=== PATIENT | female | born 1995 | race American Indian/Alaskan Native ===

== ENCOUNTER 2017-02-24 10:24 | Emergency (ER) | payer OTHER ==
[2017-02-24] MEDS ORDERED: TYLENOL PO ONE (11:06)
[2017-02-24] MEDS ORDERED: NACL 0.9% 1000 ML 1,000 ML IV ONE ×3 (11:08→14:50)
[2017-02-24] MEDS ORDERED: ROBITUSSIN PO ONE (12:07)
[2017-02-24 12:23] LABS: Basophils % (Auto) 0.2 % (0.0-1.8); Eosinophils # (Auto) 0.1 K/mm3 (0.0-0.4); Eosinophils % (Auto) 0.6 % (0.0-4.3); Hemoglobin 10.6 gm/dl (10.1-14.3); Lymphocytes # (Auto) 0.4 K/mm3 (1.2-5.4); Lymphocytes % (Auto) 4.1 % (13.4-35.0); Mean Corpuscular HGB Conc 32 % (30-34); Mean Corpuscular Hemoglobin 26 pg (28-32); Mean Corpuscular Volume 82 fl (79-97); Monocytes # (Auto) 0.8 K/mm3 (0.0-0.8); Monocytes % (Auto) 8.1 % (0.0-7.3); Platelet Count 298 K/mm3 (140-440); Red Cell Distribution Width 14.6 % (13.2-15.2)
[2017-02-24 12:49] LABS: Alanine Aminotransferase 21 units/L (7-56); Albumin 3.7 g/dL (3.9-5); BUN/Creatinine Ratio 16; Blood Urea Nitrogen 8 mg/dL (7-17); Calcium 8.3 mg/dL (8.4-10.2); Hemolysis Index 26
--- NOTE | 2017-02-24 15:35 | Emergency Department Report ---
HPI - General Chief Complaint: Upper Respiratory Infection Time Seen by Provider: 02/24/17 12:05 - HPI HPI: The patient is a EGA 10 weeks, who presents for evaluation of cough and ill feeling. The patient reports that nonproductive cough for the past one day , harsh in quality, severe, and associated with nausea, decreased appetite, generalized myalgias, and fever. The patient denies headache, neck stiffness, trauma to the chest, chest pain, syncope, hemoptysis, unilateral leg swelling, abdominal pain, vaginal bleeding, vaginal discharge, dysuria. ED Past Medical Hx - Past Medical History Previous Medical History?: Yes - Surgical History Past Surgical History?: Yes Additional Surgical History: - Social History Smoking Status: Never Smoker Substance Use Type: Alcohol, Non Opiate Pain - Medications Home Medications: Home Medications Medication Instructions Recorded Confirmed Last Taken Type Acetaminophen [Tylenol Extra 500 mg PO Q6HR #30 tablet 02/24/17 Unknown Rx Strength] Oseltamivir [Tamiflu] 75 mg PO BID #10 cap 02/24/17 Unknown Rx Pnv No.95/Ferrous Fum/Folic AC 1 each PO QDAY #31 tablet 02/24/17 Unknown Rx [ Vitamin Tablet] guaiFENesin [Guaifenesin] 200 mg PO Q8HR PRN #30 tablet 02/24/17 Unknown Rx ED Review of Systems ROS: Stated complaint: FLU LIKE SYMPTOMS Other details as noted in HPI Constitutional: denies: fever ENT: denies: throat or neck pain Respiratory: reports cough denies: shortness of breath Cardiovascular: denies: chest pain Endocrine: denies unexplained weight loss or gain Gastrointestinal: denies: abdominal pain, nausea Genitourinary: denies: dysuria Musculoskeletal: reports myalgias denies: leg swelling Skin: denies: rash Neurological: denies: headache Hematological/Lymphatic: denies: easy bleeding or easy bruising Psych: denies sadness or hopelessness Physical Exam - Physical Exam Vital Signs: Vital Signs 02/24/17 02/24/17 02/24/17 10:28 10:59 14:01 Temperature 99.2 F 99.3 F Pulse Rate 129 H 129 H 108 H Respiratory 16 18 16 Rate Blood Pressure 104/72 Blood Pressure 100/59 90/56 [Left] O2 Sat by Pulse 100 100 100 Oximetry Physical Exam: General: well-nourished, well-developed, no acute distress Head: Normocephalic, atraumatic Eyes: normal sclera ENT: Mucous membranes are pale and dry Neck: No neck stiffness, no cervical adenopathy Respiratory: Breath sounds equal bilaterally, no wheezing, rales, or rhonchi Cardio: S1 and S2 present, no murmurs, rubs, gallops, capillary refill is delayed Abdomen: Normoactive bowel sounds, soft abdomen, no tenderness Chest WALL/Back: No tenderness to palpation of the chest wall, no CVA tenderness with percussion Musc: No pitting edema Skin: No rash Neuro: no facial drooping, normal speech Psych: Normal affect ED Course Vital Signs 02/24/17 02/24/17 02/24/17 10:28 10:59 14:01 Temperature 99.2 F 99.3 F Pulse Rate 129 H 129 H 108 H Respiratory 16 18 16 Rate Blood Pressure 104/72 Blood Pressure 100/59 90/56 [Left] O2 Sat by Pulse 100 100 100 Oximetry ED Medical Decision Making - Lab Data Result diagrams: 02/24/17 11:51 02/24/17 11:51 - Medical Decision Making The patient was seen and examined by myself. The patient is placed on a hospital monitor and continuous pulse ox. On initial evaluation, the patient was found to be in no distress. Evaluation orders were placed. The patient is given 2 L normal saline fluid bolus for treatment of dehydration and tachycardia. The patient given Rocephin and sent for her cough and Tylenol for her pain. Lab results reveal positive influenza type A screen. The patient is given Tamiflu. The patient was reevaluated and reported that their symptoms were markedly improved. On reexamination the patient is found to have normal respiratory rate, O2 sat on pulse oximetry, with no costal retractions or diminishment of breath sounds on auscultation, and decrease in heart rate from 130s on arrival to 103 currently. The patient is stable for discharge with outpatient follow-up. The patient is given follow-up and return instructions. The patient expressed understanding and agreed with the plan. The patient is discharged in stable condition. Critical care attestation.: If time is entered above; I have spent that time in minutes in the direct care of this critically ill patient, excluding procedure time. ED Disposition Clinical Impression: Influenza A, Dehydration Disposition: DC-01 TO HOME OR SELFCARE Is pt being admited?: No Does the pt Need Aspirin: No Condition: Stable Instructions: Influenza (ED), Dehydration (ED), Musculoskeletal Pain (ED) Prescriptions: Acetaminophen [Tylenol Extra Strength] 500 mg PO Q6HR #30 tablet guaiFENesin [Guaifenesin] 200 mg PO Q8HR PRN #30 tablet PRN Reason: Cough Oseltamivir [Tamiflu] 75 mg PO BID #10 cap Referrals: PRIMARY CARE, [Primary Care Provider] - 3-5 Days Time of Disposition: 15:31
[2017-02-24 15:42] VITALS: BP 106/71
[2017-02-24] MEDS ORDERED: TAMIFLU PO ONE (16:00)
== END 2017-02-24 16:13 | disposition home or self-care (01) ==
LOC: ED 10:24
DX: E86.0 Dehydration (principal)
CPT/HCPCS: 36415; 80053; 84702; 85025; 87400; 93005; 93010; 96360; 96361; 99283; J7030

== ENCOUNTER 2017-07-17 22:55 | Outpatient (CLI) | payer BC, MEDICAID ==
[2017-07-17] MEDS ORDERED: LACTATED RINGERS 1,000 ML IV ONE (22:56)
[2017-07-17 23:13] VITALS: BP 114/57
[2017-07-17 23:28] LABS: Bilirubin,Urine NEG (Negative); Blood,Urine SM (Negative); Color,Urine Straw (Yellow); Protein,Urine <15 mg/dL mg/dL (Negative); Urobilinogen,Urine < 2.0 mg/dL (<2.0); WBC,Urine < 1.0 /HPF (0.0-6.0)
== END 2017-07-18 | disposition home or self-care (01) ==
LOC: TRG 22:55
PROVIDERS: ATTEND Obstetrics & Gynecology
DX: O46.8X2 Other antepartum hemorrhage, second trimester (principal); N93.9 Abnormal uterine and vaginal bleeding, unspecified; Z3A.27 27 weeks gestation of pregnancy
CPT/HCPCS: 59025; 81001

== ENCOUNTER 2017-08-03 09:49 | Outpatient (CLI) | payer BC, MEDICAID ==
[2017-08-03 10:41] VITALS: BP 112/56
[2017-08-03 10:43] LABS: Bacteria,Urine 1+ /HPF (Negative); Bilirubin,Urine NEG (Negative); Blood,Urine NEG (Negative); Color,Urine Yellow (Yellow); Mucus,Urine 3+ /HPF; Urobilinogen,Urine < 2.0 mg/dL (<2.0)
[2017-08-03] MEDS ORDERED: LACTATED RINGERS 500 ML IV ONE (11:00)
== END 2017-08-03 11:00 | disposition home or self-care (01) ==
LOC: TRG 09:49
PROVIDERS: ATTEND Obstetrics & Gynecology
DX: O47.03 False labor before 37 completed weeks of gestation, third trimester (principal); Z3A.31 31 weeks gestation of pregnancy
CPT/HCPCS: 59025; 81001

== ENCOUNTER 2017-08-07 12:27 | Inpatient (IN) | payer BC, MEDICAID ==
[2017-08-07] MEDS ORDERED: LACTATED RINGERS 500 ML IV ONE (13:23)
[2017-08-07 14:29] LABS: Bilirubin,Urine NEG (Negative); Blood,Urine SM (Negative); Color,Urine Yellow (Yellow); Mucus,Urine FEW /HPF; Protein,Urine <15 mg/dL mg/dL (Negative); Urobilinogen,Urine < 2.0 mg/dL (<2.0)
[2017-08-07] MEDS ORDERED: ceFAZolin 2 GM in NACL 0.9% 100 ML IV ONE (14:57)
[2017-08-07] MEDS ORDERED: BRETHINE SUB-Q NR (15:00)
[2017-08-07] MEDS ORDERED: LACTATED RINGERS 1,000 ML IV SCH ×2 (15:00→16:00)
[2017-08-07] MEDS ORDERED: ANCEF/STERILE WATER 2 GM/20 ML 2 GM/20 ML SYRINGE IV NR (15:00)
[2017-08-07] MEDS ORDERED: BRETHINE SUB-Q PRN (15:31)
[2017-08-07] MEDS ORDERED: MAGNESIUM SULFATE 4GM/100ML 4 GM/100 ML BAG IV ONE (15:32)
[2017-08-07] MEDS ORDERED: COLACE PO PRN (15:38)
[2017-08-07] MEDS ORDERED: MILK OF MAGNESIA PO PRN ×2 (15:38→17:36)
[2017-08-07] MEDS ORDERED: ZOFRAN IV PRN ×2 (15:38→17:36)
[2017-08-07] MEDS ORDERED: TYLENOL PO PRN ×2 (15:38→17:36)
--- NOTE | 2017-08-07 15:43 | History and Physical Report ---
History of Present Illness Date of examination: 08/07/17 Chief complaint: labor History of present illness: Pt is a 22yo BF EDC 10/06/17; EGA 31 3/7 weeks presents to L&D complaining of RUC's q 2-3 mins. She received care at [facility] since 13 weeks and course significant for previous C section and untreated UTI from last week - Pt did not fill the prescription. She is currently dilated 6cm with a BBOW, and therefore will be admitted for aggressive attempt at tocolysis and administration of steroids. records are available. Past History Past Medical History: no pertinent history Past Surgical History: section Social history: no significant social history, single - Obstetrical History Expected Date of Delivery: 10/06/17 Actual Gestation: 31 Week(s) 3 Day(s) : 2 Medications and Allergies Allergies Allergy/AdvReac Type Severity Reaction Status Date / Time No Known Allergies Allergy Unverified 02/24/17 10:28 Home Medications Medication Instructions Recorded Confirmed Last Taken Type Ferrous Sulfate [Feosol 325 MG tab] 1 tab PO QDAY 07/17/17 08/07/17 08/06/17 19: 00 History Pnv No.95/Ferrous Fum/Folic AC 1 tab PO QDAY 07/17/17 08/07/17 08/06/17 19:00 History [ Vitamins Tablet] Nitrofurantoin Macrocrystal 100 mg PO BID #14 capsule 08/03/17 08/07/17 Unknown Rx [Macrodantin] Active Meds: Active Medications Betamethasone Acet/Betameth SodPhos (Celestone Soluspan) 12 mg IM Q12H TRICIA Lactated Ringer's (Lactated Ringers) 1,000 mls @ 125 mls/hr IV DIRECT TRICIA Last Admin: 08/07/17 15:20 Dose: 125 mls/hr Cefazolin Sodium (Ancef/Sterile Water 2 Gm/20 Ml) 2 gm in 20 mls @ 120 mls/hr IV ONCE NR Stop: 08/07/17 18:00 Ampicillin Sodium (Polycillin/Ns 2 Gm/100 Ml) 2 gm in 100 mls @ 100 mls/hr IV ONCE ONE; Protocol Stop: 08/07/17 16:59 Magnesium Sulfate (Magnesium Sulfate 40gm/1000ml) 40 gm in 1,000 mls @ 50 mls/ hr IV DIRECT TRICIA Magnesium Sulfate (Magnesium Sulfate 4gm/100ml) 4 gm in 100 mls @ 300 mls/hr IV ONCE ONE Stop: 08/07/17 15:51 Terbutaline Sulfate (Brethine) 0.25 mg SUB-Q ONCE NR Stop: 08/07/17 19:00 Last Admin: 08/07/17 15:12 Dose: 0.25 mg Terbutaline Sulfate (Brethine) 0.25 mg SUB-Q ONCE PRN PRN Reason: Hyperstimulation/Hypertonicity Review of Systems All systems: negative - Vital Signs Vital signs: Vital Signs Pulse BP Pulse Ox 111 H 110/56 98 08/07/17 12:56 08/07/17 12:56 08/07/17 12:56 Temp Pulse Resp BP Pulse Ox 98.0 F 98 H 16 110/56 100 08/07/17 13:23 08/07/17 15:41 08/07/17 13:23 08/07/17 12:56 08/07/17 15:41 - Physical Exam Breasts: Positive: deferred Cardiovascular: Regular rate Lungs: Positive: Clear to auscultation Abdomen: Positive: normal appearance Genitourinary (Female): Positive: normal external genitalia Uterus: Positive: enlarged Extremities: Positive: normal - Obstetrical FHR: category 1 Uterine Contraction Monitor Mode: External Cervical Dilatation: 6 (per nurse) Cervical Effacement Percentage: 100 (per nurse) station: -2 Uterine Contraction Pattern: Regular Uterine Tone Measurement Phase: Contraction Uterine Contraction Intensity: Moderate Results Result Diagrams: 08/07/17 17:44 Abnormal lab results 08/07/17 Range/Units 14:10 Urine WBC (Auto) 134.0 H (0.0-6.0) /HPF All other labs normal. Ultrasound: report reviewed Assessment and Plan - Patient Problems (1) 31 weeks gestation of Onset Date: 08/07/17 Current Visit: Yes Status: Acute Plan to address problem: A: IUP @ 31 3/7 weeks labor Previous C Section P: Admit to L&D for Observation Begin IV fluids, IV Magnesium sulfate, IV ampicillin, IM steroids Obtain NICU consult Ob u/s for growth, position, EFW and BAUDILIO (2) contractions Onset Date: 08/07/17 Current Visit: Yes Status: Acute
[2017-08-07] MEDS ORDERED: CELESTONE SOLUSPAN IM SCH (16:00)
[2017-08-07] MEDS ORDERED: POLYCILLIN/NS 2 GM/100 ML 2 GM/100 ML BAG IV ONE (16:00)
[2017-08-07] MEDS ORDERED: MAGNESIUM SULFATE 40GM/1000ML 40 GM/1,000 ML BAG IV SCH (16:00)
[2017-08-07] MEDS ORDERED: SUBLIMAZE ONE (16:29)
[2017-08-07] MEDS ORDERED: SUBLIMAZE IV ONE (16:40)
[2017-08-07] MEDS ORDERED: PITOCin/NS 20 UNIT/1000ML DRIP 20,000 MILLIUNITS/1,000 ML BAG IV ONE (17:23)
--- NOTE | 2017-08-07 17:35 | Procedure Note ---
OB Delivery Note - Delivery Date of Delivery: 08/07/17 Surgeon: YEYO WESTON Estimated blood loss: 200cc - Vaginal Delivery presentation: vertex Delivery position: OA Intrapartum events: labor-<37 weeks, precipitous labor- <3hr Delivery induction: none Delivery augmentation: rupture of membranes Delivery monitor: external FHT, external uterine Route of delivery: Delivery placenta: spontaneous Delivery cord: 3 umbilical vessels Episiotomy: none Delivery laceration: none Anesthesia: none Delivery comments: delivered OA and handed to awaiting Peds/RT in attendance - Infant A at 1 minute: 4 at 5 minutes: 8 Infant Gender: Male (1730gms)
[2017-08-07] MEDS ORDERED: DULCOLAX PR PRN (17:36)
[2017-08-07] MEDS ORDERED: BENADRYL PO PRN (17:36)
[2017-08-07] MEDS ORDERED: PHENERGAN PR PRN (17:36)
[2017-08-07] MEDS ORDERED: PHENERGAN PO PRN (17:36)
[2017-08-07] MEDS ORDERED: TUCKS PAD TP PRN (17:36)
[2017-08-07] MEDS ORDERED: NORCO 5/325 PO PRN (17:36)
[2017-08-07] MEDS ORDERED: LANSINOH TP PRN (17:36)
--- NOTE | 2017-08-07 17:48 | Ultrasound Report ---
FINAL REPORT EXAM: US OB BPP WO NON-STRESS HISTORY: EFW, Position TECHNIQUE: Ultrasound examination of the gravid uterus for biophysical profile evaluation of the fetus PRIORS: Ob ultrasound 08/07/2017 FINDINGS: There is a single viable intrauterine with documented cardiac activity. The amniotic fluid volume is normal. heart rate: 163 bpm Amniotic fluid maximum vertical pocket: 4.8 cm Evaluation for biophysical profile yields the following score as reported by technologist from real-time exam: respiratory motion (minimum one episode): 2 Gross body movement (minimum 3 movements): 2 tone (minimum one flexion and extension): 2 Amniotic fluid volume (at least 2 cm pocket in vertical diameter): 2 IMPRESSION: Single viable intrauterine with 8/8 biophysical profile score during the sonographic evaluation
[2017-08-07] MEDS ORDERED: SODIUM CHLORIDE FLUSH SYRINGE 10 ML IV NR (18:00)
[2017-08-07] MEDS ORDERED: PITOCin/NS 20 UNIT/1000ML DRIP 20 UNITS/1,000 ML BAG IV SCH (18:00)
[2017-08-07 18:09] LABS: Hematocrit 27.6 % (30.3-42.9); Hemoglobin 8.7 gm/dl (10.1-14.3); Mean Corpuscular HGB Conc 32 % (30-34); Mean Corpuscular Hemoglobin 26 pg (28-32); Mean Corpuscular Volume 83 fl (79-97); Platelet Count 277 K/mm3 (140-440); Red Blood Count 3.32 M/mm3 (3.65-5.03); Red Cell Distribution Width 15.3 % (13.2-15.2)
--- NOTE | 2017-08-07 18:13 | Ultrasound Report ---
FINAL REPORT EXAM: US OB > = 14 WEEKS FETUS HISTORY: anatomy, position, EFW TECHNIQUE: Ultrasound evaluation of the gravid uterus PRIORS: Biophysical profile 08/07/2017 FINDINGS: There is a single viable intrauterine with documented cardiac activity. Multiple ultrasound measurements are made to determine a composite gestational age. ratios are within normal limits. There is no evidence of placenta previa or abruption. The maternal cervix appears open and/or is obscured by head. The quantity of visualized amniotic fluid appears grossly normal. No sonographic abnormality in the visualized portion of the anatomy. Heart rate: 163 beats per minute position: Cephalic Placental position: Left lateral, grade 1 Amniotic fluid index: 16.3cm Estimated weight: 1748 g Growth percentile by ultrasound: 65 Ultrasound estimated gestational age: 31 weeks 1 day Ultrasound estimated delivery date: 10/08/2017 LMP estimated gestational age: 30 weeks 4 days LMP estimated delivery date: 10/12/2017 IMPRESSION: Single viable intrauterine with the above parameters The maternal cervix appears open and/or is obscured by the head
[2017-08-07] MEDS ORDERED: AMPICILLIN/NS 1 GM/50 ML 1 GM/50 ML BAG IV SCH (19:40)
[2017-08-07 20:01] LABS: Band Neutrophils # (Manual) 0.3 K/mm3; Basophils % (Manual) 0 % (0.0-1.8); Eosinophils % (Manual) 0 % (0.0-4.3); Total Cells Counted 100
[2017-08-07 20:02] LABS: Platelet Estimate Consistent w Auto; RBC Morphology Normal
[2017-08-07] MEDS: FEOSOL PO SCH (21:47)
[2017-08-07] MEDS: MOTRIN PO SCH (21:48)
[2017-08-08 08:20] LABS: Hematocrit 27.7 % (30.3-42.9); Hemoglobin 8.6 gm/dl (10.1-14.3)
--- NOTE | 2017-08-08 08:23 | Progress Note ---
Assessment and Plan - Patient Problems (1) 31 weeks gestation of Onset Date: 08/07/17 Current Visit: Yes Status: Ruled-out (2) contractions Onset Date: 08/07/17 Current Visit: Yes Status: Ruled-out (3) (normal spontaneous vaginal delivery) Onset Date: 08/08/17 Current Visit: Yes Status: Resolved (4) (vaginal after ) Onset Date: 08/08/17 Current Visit: Yes Status: Resolved Plan to address problem: A: S/P () - PPd #1 Doing well Asymptomatic anemia - stable P: May go home today. Subjective - Subjective Date of service: 08/08/17 Principal diagnosis: s/p - PPD #1 Interval history: Pt is feeling well without complaints. Bleeding improved. Baby in NICU. Patient reports: appetite normal, voiding normally, pain well controlled, flatus , ambulating normally, no dizzy ambulation, no nauseated : doing well, in NICU Objective - Vital Signs Latest vital signs: Vital Signs Temp Pulse Resp BP BP Pulse Ox 08/08/17 01:37 98.3 F 76 20 106/62 97 08/07/17 20:45 98.4 F 95 H 20 117/61 100 18 19:05 103 H 113/68 18 18:50 102 H 106/56 18 18:42 102 H 100 18 18:39 103 H 92/54 18 18:37 97 H 100 18 18:35 109 H 87/63 18 18:32 104 H 100 18 18:27 109 H 100 18 18:22 101 H 100 18 18:20 104 H 98/59 18 18:17 106 H 100 18 18:12 104 H 100 18 18:07 109 H 100 18 18:05 102 H 94/56 18 18:02 100 H 100 18 17:57 112 H 100 18 17:52 113 H 100 18 17:46 117 H 100 18 17:44 98.5 F 120 H 16 101/53 101/53 06/19/18 17:41 120 H 100 06/19/18 17:37 120 H 94/55 06/19/18 17:36 122 H 100 06/19/18 17:34 98.5 F 120 H 16 94/55 06/19/18 17:31 114 H 93 06/19/18 17:26 119 H 99 06/19/18 17:25 115 H 115/59 06/19/18 17:21 118 H 97 06/19/18 17:16 104 H 99 06/19/18 17:14 109 H 102/58 06/19/18 17:11 101 H 100 06/19/18 17:06 104 H 100 06/19/18 17:04 106 H 109/64 06/19/18 17:01 115 H 100 06/19/18 16:56 99 H 100 06/19/18 16:54 110 H 99/55 06/19/18 16:51 110 H 98 06/19/18 16:46 103 H 99 06/19/18 16:44 105 H 101/57 0619/18 16:41 109 H 98 06/19/18 16:36 101 H 100 06/19/18 16:34 110 H 87/52 06/19/18 16:33 111 H 97/49 06/19/18 16:28 98.5 F 111 H 16 104/63 06/19/18 16:25 111 H 90/51 06/19/18 16:09 115 H 135/63 06/19/18 15:51 116 H 100 06/19/18 15:46 108 H 100 06/19/18 15:41 98 H 100 06/19/18 15:38 103 H 88 06/19/18 15:36 104 H 100 06/19/18 15:31 111 H 100 06/19/18 15:26 97 H 96 06/19/18 15:22 94 H 92 06/19/18 15:21 91 H 100 06/19/18 15:13 102 H 99 06/19/18 15:11 98 H 94 06/19/18 15:08 95 H 98 06/19/18 15:04 100 H 91 06/19/18 15:03 102 H 99 06/19/18 14:58 99 H 93 06/19/18 14:53 93 H 99 06/19/18 13:23 98.0 F 16 08/07/17 13:06 103 H 99 08/07/17 13:01 106 H 99 08/07/17 12:56 111 H 110/56 98 Intake and Output 08/07/17 08/08/17 08/08/17 22:59 06:59 14:59 Intake Total 500 240 Output Total 1500 900 Balance -1000 -660 Intake: IV 500 Lactated Ringers 500 ml @ 500 999 mls/hr IV BOLUS ONE Rx#:[id number] Oral 240 Output: Urine 1500 900 Void 1500 900 Other: Total, Intake Amount 240 Total, Output Amount 500 900 # Voids Void 1 Estimated Blood Loss 200 - Exam Breasts: Present: deferred Cardiovascular: Present: Regular rate Lungs: Present: Clear to auscultation Abdomen: Present: normal appearance, soft Uterus: Present: normal, firm, fundal height below umbilicus Extremities: Present: normal - Labs Labs: Abnormal lab results 08/07/17 08/07/17 Range/Units 14:10 17:44 WBC 14.4 H (4.5-11.0) K/mm3 RBC 3.32 L (3.65-5.03) M/mm3 Hgb 8.7 L (10.1-14.3) gm/dl Hct 27.6 L (30.3-42.9) % MCH 26 L (28-32) pg RDW 15.3 H (13.2-15.2) % Seg Neuts % (Manual) 92.0 H (40.0-70.0) % Lymphocytes % (Manual) 3.0 L (13.4-35.0) % Seg Neutrophils # Man 13.2 H (1.8-7.7) K/mm3 Lymphocytes # (Manual) 0.4 L (1.2-5.4) K/mm3 Urine WBC (Auto) 134.0 H (0.0-6.0) /HPF Laboratory Tests 08/07/17 08/07/17 08/07/17 14:10 15:00 17:44 WBC RBC Hgb Hct MCV MCH MCHC RDW Plt Count Add Manual Diff Total Counted Seg Neutrophils % Seg Neuts % (Manual) Band Neutrophils % Lymphocytes % (Manual) Reactive Lymphs % (Man) Monocytes % (Manual) Eosinophils % (Manual) Basophils % (Manual) Metamyelocytes % Myelocytes % Promyelocytes % Blast Cells % Nucleated RBC % Seg Neutrophils # Man Band Neutrophils # Lymphocytes # (Manual) Abs React Lymphs (Man) Monocytes # (Manual) Eosinophils # (Manual) Basophils # (Manual) Metamyelocytes # Myelocytes # Promyelocytes # Blast Cells # WBC Morphology Hypersegmented Neuts Hyposegmented Neuts Hypogranular Neuts Smudge Cells Toxic Granulation Toxic Vacuolation Dohle Bodies Pelger-Huet Anomaly Joy Rods Platelet Estimate Clumped Platelets Plt Clumps, EDTA Large Platelets Giant Platelets Platelet Satelliting Plt Morphology Comment RBC Morphology Dimorphic RBCs Polychromasia Hypochromasia Poikilocytosis Anisocytosis Microcytosis Macrocytosis Spherocytes Pappenheimer Bodies Sickle Cells Target Cells Tear Drop Cells Ovalocytes Helmet Cells [place] Bodies Canones Rings Elsa Cells Bite Cells Crenated Cell Elliptocytes Acanthocytes (Spur) Rouleaux Hemoglobin C Crystals Schistocytes Malaria parasites [place] Bodies Hem Pathologist Commnt Urine Color Yellow Urine Turbidity Clear Urine pH 6.0 Ur Specific [place] 1.014 Urine Protein <15 mg/dl Urine Glucose (UA) 50 Urine Ketones Neg Urine Blood Sm Urine Nitrite Neg Urine Bilirubin Neg Urine Urobilinogen < 2.0 Ur Leukocyte Esterase Lg Urine WBC (Auto) 134.0 H Urine RBC (Auto) 12.0 U Epithel Cells (Auto) 11.0 Urine Mucus Few Fibronectin Positive Blood Type O POSITIVE Antibody Screen Negative 08/07/17 08/08/17 17:44 07:53 WBC 14.4 H RBC 3.32 L Hgb 8.7 L 8.6 L Hct 27.6 L 27.7 L MCV 83 MCH 26 L MCHC 32 RDW 15.3 H Plt Count 277 Add Manual Diff Complete Total Counted 100 Seg Neutrophils % Supervisor Policy Change Clerks Seg Neuts % (Manual) 92.0 H Band Neutrophils % 2.0 Lymphocytes % (Manual) 3.0 L Reactive Lymphs % (Man) 0 Monocytes % (Manual) 3.0 Eosinophils % (Manual) 0 Basophils % (Manual) 0 Metamyelocytes % 0 Myelocytes % 0 Promyelocytes % 0 Blast Cells % 0 Nucleated RBC % Not Reportable Seg Neutrophils # Man 13.2 H Band Neutrophils # 0.3 Lymphocytes # (Manual) 0.4 L Abs React Lymphs (Man) 0.0 Monocytes # (Manual) 0.4 Eosinophils # (Manual) 0.0 Basophils # (Manual) 0.0 Metamyelocytes # 0.0 Myelocytes # 0.0 Promyelocytes # 0.0 Blast Cells # 0.0 WBC Morphology Not Reportable Hypersegmented Neuts Not Reportable Hyposegmented Neuts Not Reportable Hypogranular Neuts Not Reportable Smudge Cells Not Reportable Toxic Granulation Not Reportable Toxic Vacuolation Not Reportable Dohle Bodies Not Reportable Pelger-Huet Anomaly Not Reportable Joy Rods Not Reportable Platelet Estimate Consistent w auto Clumped Platelets Not Reportable Plt Clumps, EDTA Not Reportable Large Platelets Not Reportable Giant Platelets Not Reportable Platelet Satelliting Not Reportable Plt Morphology Comment Not Reportable RBC Morphology Normal Dimorphic RBCs Not Reportable Polychromasia Not Reportable Hypochromasia Not Reportable Poikilocytosis Not Reportable Anisocytosis Not Reportable Microcytosis Not Reportable Macrocytosis Not Reportable Spherocytes Not Reportable Pappenheimer Bodies Not Reportable Sickle Cells Not Reportable Target Cells Not Reportable Tear Drop Cells Not Reportable Ovalocytes Not Reportable Helmet Cells Not Reportable [place] Bodies Not Reportable Canones Rings Not Reportable Elsa Cells Not Reportable Bite Cells Not Reportable Crenated Cell Not Reportable Elliptocytes Not Reportable Acanthocytes (Spur) Not Reportable Rouleaux Not Reportable Hemoglobin C Crystals Not Reportable Schistocytes Not Reportable Malaria parasites Not Reportable [place] Bodies Not Reportable Hem Pathologist Commnt No Urine Color Urine Turbidity Urine pH Ur Specific [place] Urine Protein Urine Glucose (UA) Urine Ketones Urine Blood Urine Nitrite Urine Bilirubin Urine Urobilinogen Ur Leukocyte Esterase Urine WBC (Auto) Urine RBC (Auto) U Epithel Cells (Auto) Urine Mucus Fibronectin Blood Type Antibody Screen
[2017-08-08] MEDS ORDERED: PRENATAL VITAMIN PO SCH (10:00)
[2017-08-08] MEDS: FEOSOL PO SCH (10:10)
[2017-08-08] MEDS: MOTRIN PO SCH ×3 (10:10→12:00)
--- NOTE | 2017-08-08 12:11 | Discharge Summary ---
Providers - Providers Date of Admission: 08/07/17 15:47 Date of discharge: 08/08/17 Attending physician: YEYO WESTON Primary care physician: YEYO WESTON Hospitalization Reason for admission: active labor, IUP - , labor, rupture of membranes Delivery: , Episiotomy: none Laceration: none Other procedures: none complications: none Discharge diagnosis: delivery [place] baby: male Hospital course: Unremarkable. Condition at discharge: Good Disposition: DC-01 TO HOME OR SELFCARE - Discharge Diagnoses (1) 31 weeks gestation of Status: Ruled-out (2) contractions Status: Ruled-out (3) (normal spontaneous vaginal delivery) Status: Resolved (4) (vaginal after ) Status: Resolved Plan - Discharge Medications Prescriptions: Ferrous Sulfate [Feosol 325 MG tab] 325 mg PO BID #60 tablet Ibuprofen [Motrin 600 MG tab] 600 mg PO Q6H #30 tablet Vit-Fe Fumar-FA [ Vitamin] 1 each PO QDAY #30 tablet - Provider Discharge Summary Activity: routine, no sex for 6 weeks, no heavy lifting 4 weeks, no strenuous exercise Diet: routine Instructions: routine Additional instructions: [] Smoking cessation referral if applicable(refer to patient education folder for contact #) [] Refer to [facility] Booklet Call your doctor immediately for: * Fever > 100.5 * Heavy vaginal bleeding ( >1 pad per hour) * Severe persistent headache * Shortness of breath * Reddened, hot, painful area to leg or breast * Drainage or odor from incision. * Keep incision clean and dry at all times and follow doctor's instructions regarding bathing/showering - Follow up plan Follow up: YEYO WESTON MD [Primary Care Provider] - 6 Weeks JALYN MICHELLE NP [Referring] - 6 Weeks
[2017-08-08 12:38] VITALS: BP 103/65
[2017-08-08] MEDS ORDERED: M-M-R II VACCINE SUB-Q ONE (17:36)
[2017-08-08] MEDS ORDERED: BOOSTRIX IM ONE (17:36)
== END 2017-08-08 15:55 | disposition home or self-care (01) | DRG 775 ==
LOC: TRG 12:27 → LD 15:47 → OB 19:33
PROVIDERS: ADMIT Obstetrics & Gynecology; ATTEND Obstetrics & Gynecology
PROC: 10E0XZZ Delivery of Products of Conception, External Approach (ICD-10-PCS; principal; 2017-08-07)
PROC: 3E0234Z Introduction of Serum, Toxoid and Vaccine into Muscle, Percutaneous Approach (ICD-10-PCS; 2017-08-08)
DX: O62.3 Precipitate labor (principal); O60.14X0 Preterm labor third trimester with preterm delivery third trimester, not applicable or unspecified; Z3A.31 31 weeks gestation of pregnancy; Z37.0 Single live birth; O34.211 Maternal care for low transverse scar from previous cesarean delivery; O99.03 Anemia complicating the puerperium; D64.9 Anemia, unspecified; Z23 Encounter for immunization
CPT/HCPCS: 36415; 76805; 76819; 81001; 82731; 85007; 85014; 85018; 85025; 86592; 86850; 86900; 86901; 88307; J0290; J0702; J2590; J3010; J3105; J3475; J7120

== ENCOUNTER 2017-10-11 22:21 | Emergency (ER) | payer BC ==
[2017-10-11 22:52] VITALS: BP 106/68
== END 2017-10-12 05:19 | disposition left against medical advice (07) ==
LOC: ED 22:21
DX: M79.645 Pain in left finger(s) (principal); Z53.21 Procedure and treatment not carried out due to patient leaving prior to being seen by health care provider

== ENCOUNTER 2017-11-27 01:50 | Emergency (ER) | payer BC ==
[2017-11-27 02:38] VITALS: BP 116/66
[2017-11-27 03:52] LABS: Basophils % (Auto) 0.1 % (0.0-1.8); Eosinophils # (Auto) 0.1 K/mm3 (0.0-0.4); Eosinophils % (Auto) 0.9 % (0.0-4.3); Hematocrit 32.2 % (30.3-42.9); Hemoglobin 10.4 gm/dl (10.1-14.3); Lymphocytes # (Auto) 2.9 K/mm3 (1.2-5.4); Lymphocytes % (Auto) 25.2 % (13.4-35.0); Mean Corpuscular HGB Conc 32 % (30-34); Mean Corpuscular Hemoglobin 27 pg (28-32); Mean Corpuscular Volume 82 fl (79-97); Monocytes # (Auto) 0.8 K/mm3 (0.0-0.8); Monocytes % (Auto) 7.1 % (0.0-7.3); Platelet Count 424 K/mm3 (140-440); Red Blood Count 3.91 M/mm3 (3.65-5.03); Red Cell Distribution Width 16.7 % (13.2-15.2)
[2017-11-27 05:46] LABS: Bilirubin,Urine NEG (Negative); Blood,Urine LG (Negative); Color,Urine Yellow (Yellow); Mucus,Urine 2+ /HPF; Protein,Urine <15 mg/dL mg/dL (Negative); Urobilinogen,Urine < 2.0 mg/dL (<2.0)
== END 2017-11-27 09:10 | disposition left against medical advice (07) ==
LOC: ED 01:50
DX: N93.9 Abnormal uterine and vaginal bleeding, unspecified (principal); Z53.21 Procedure and treatment not carried out due to patient leaving prior to being seen by health care provider
CPT/HCPCS: 36415; 81001; 85025; 86850; 86900; 86901

== ENCOUNTER 2018-04-07 17:32 | Emergency (ER) | payer BC, OTHER ==
--- NOTE | 2018-04-07 17:43 | Emergency Department Report ---
Blank Doc - Documentation Documentation: This is a 22-year-old female presents to the ED with vaginal bleeding x2 days. Stated changes about 3 pads a day. Denies abdominal or pelvic pain. Denies f/o with OB. This initial assessment diagnostic orders/clinical plan/treatment(s) is/are subject to change based on patient's health status, clinical progression and re- assessment by fellow clinical providers in the ED. Further treatment and workup at subsequent clinical providers discretion. Patient/guardians urged not to elope from ED s their condition may be serious if not clinically assessed and managed. Initial orders include: 1-patient sent to [facility] for further evaluation and treatment. 2- UA 3- Labs
[2018-04-07 18:40] LABS: Basophils # (Auto) 0.1 K/mm3 (0.0-0.1); Basophils % (Auto) 0.6 % (0.0-1.8); Eosinophils # (Auto) 0.1 K/mm3 (0.0-0.4); Eosinophils % (Auto) 0.6 % (0.0-4.3); Hematocrit 34.6 % (30.3-42.9); Hemoglobin 10.7 gm/dl (10.1-14.3); Lymphocytes # (Auto) 2.4 K/mm3 (1.2-5.4); Lymphocytes % (Auto) 26.1 % (13.4-35.0); Mean Corpuscular HGB Conc 31 % (30-34); Mean Corpuscular Volume 79 fl (79-97); Monocytes # (Auto) 0.7 K/mm3 (0.0-0.8); Monocytes % (Auto) 7.8 % (0.0-7.3); Platelet Count 389 K/mm3 (140-440); Red Cell Distribution Width 16.3 % (13.2-15.2)
[2018-04-07 19:01] LABS: Bacteria,Urine 1+ /HPF (Negative); Bilirubin,Urine NEG (Negative); Blood,Urine SM (Negative); Color,Urine Yellow (Yellow); Mucus,Urine 1+ /HPF; Protein,Urine <15 mg/dL mg/dL (Negative); Urobilinogen,Urine < 2.0 mg/dL (<2.0)
--- NOTE | 2018-04-07 20:25 | Ultrasound Report ---
FINAL REPORT PROCEDURE: US OB < = 14 WEEKS FETUS TECHNIQUE: Real-time transabdominal and transvaginal sonography of the uterus, placenta, amniotic fl uid, adnexa, and fetus was performed with image documentation. Measurements were obtained to determin e age/size. M-mode Doppler was used to document heartbeat. CPT 88584 and 08651 HISTORY: vaginal bleeding COMPARISON: No prior studies are available for comparison. FINDINGS: GESTATION: Single. CRL: 9 mm, which corresponds to a gestational age of: 6 weeks, 6 days. Yolk Sac: Normal. Embryonic Cardiac Activity: 125 beats per minute Gestational Sac: There is adjacent hypoechoic region consistent with subchorionic hemorrhage Amniotic fluid: Normal. Cervix: Normal. Right Ovary: 2.5 x 2.2 x 2.2 cm Left Ovary: 2.9 x 2.7 x 2.0 cm Estimated delivery date: November 25, 2018 Uterus and adnexa: Normal. IMPRESSION: 1. Single live intrauterine gestation at approximately 6 weeks, 6 days. 2. EDC by US November 25, 2018
--- NOTE | 2018-04-07 20:26 | Ultrasound Report ---
FINAL REPORT PROCEDURE: US OB < = 14 WEEKS FETUS TECHNIQUE: Real-time transabdominal and transvaginal sonography of the uterus, placenta, amniotic fl uid, adnexa, and fetus was performed with image documentation. Measurements were obtained to determin e age/size. M-mode Doppler was used to document heartbeat. CPT 96010 and 35904 HISTORY: vaginal bleeding COMPARISON: No prior studies are available for comparison. FINDINGS: GESTATION: Single. CRL: 9 mm, which corresponds to a gestational age of: 6 weeks, 6 days. Yolk Sac: Normal. Embryonic Cardiac Activity: 125 beats per minute Gestational Sac: There is adjacent hypoechoic region consistent with subchorionic hemorrhage Amniotic fluid: Normal. Cervix: Normal. Right Ovary: 2.5 x 2.2 x 2.2 cm Left Ovary: 2.9 x 2.7 x 2.0 cm Estimated delivery date: November 25, 2018 Uterus and adnexa: Normal. IMPRESSION: 1. Single live intrauterine gestation at approximately 6 weeks, 6 days. 2. EDC by US November 25, 2018
--- NOTE | 2018-04-07 22:57 | Emergency Department Report ---
ED Female HPI - General Chief complaint: Vaginal Bleeding Stated complaint: PREG/VAGINAL BLEEDING Time Seen by Provider: 04/07/18 17:41 Source: patient Mode of arrival: Ambulatory Limitations: No Limitations - History of Present Illness Initial comments: [id number] Stateless female with no significant past medical history reports she is . She is not sure if all long bones been having some bleeding and cramping sensation for the last 2 days. The bleeding is heavier in the morning, visas throughout the course of the day. The cramping is very mild. She has no pain at current. She reports no fever, chills, sweats, chest pain, palpitations, vomiting, constipation, nausea, diarrhea. No hemoptysis or hematemesis MD Complaint: vaginal bleeding -: Gradual - Related Data Home Medications Medication Instructions Recorded Confirmed Last Taken Ferrous Sulfate [Feosol 325 MG tab] 1 tab PO QDAY 07/17/17 08/07/17 08/06/17 19:00 Pnv No.95/Ferrous Fum/Folic AC 1 tab PO QDAY 07/17/17 08/07/17 08/06/17 19:00 [ Vitamins Tablet] Previous Rx's Medication Instructions Recorded Last Taken Type Nitrofurantoin Macrocrystal 100 mg PO BID #14 capsule 08/03/17 Unknown Rx [Macrodantin] Ferrous Sulfate [Feosol 325 MG tab] 325 mg PO BID #60 tablet 08/08/17 Unknown Rx Ibuprofen [Motrin 600 MG tab] 600 mg PO Q6H #30 tablet 08/08/17 Unknown Rx Vit-Fe Fumar-FA [ 1 each PO QDAY #30 tablet 08/08/17 Unknown Rx Vitamin] Allergies Allergy/AdvReac Type Severity Reaction Status Date / Time No Known Allergies Allergy Verified 11/27/17 03:27 ED Review of Systems ROS: Stated complaint: PREG/VAGINAL BLEEDING Other details as noted in HPI Constitutional: denies: chills, fever Eyes: denies: eye pain, eye discharge, vision change ENT: denies: ear pain, throat pain Respiratory: denies: cough, shortness of breath, wheezing Cardiovascular: denies: chest pain, palpitations Endocrine: no symptoms reported Gastrointestinal: denies: abdominal pain, nausea, diarrhea Genitourinary: denies: urgency, dysuria, discharge Musculoskeletal: denies: back pain, joint swelling, arthralgia Skin: denies: rash, lesions Neurological: denies: headache, weakness, paresthesias Psychiatric: denies: anxiety, depression Hematological/Lymphatic: denies: easy bleeding, easy bruising ED Past Medical Hx - Past Medical History Previous Medical History?: Yes Hx Hypertension: No Hx Diabetes: No Hx Deep Vein Thrombosis: No Hx Renal Disease: No Hx Sickle Cell Disease: No Hx Seizures: No Hx Asthma: No Hx COPD: No Hx HIV: No Additional medical history: Vaginal delivery - Surgical History Past Surgical History?: Yes Additional Surgical History: . - Social History Smoking Status: Never Smoker Substance Use Type: None - Medications Home Medications: Home Medications Medication Instructions Recorded Confirmed Last Taken Type Ferrous Sulfate [Feosol 325 MG tab] 1 tab PO QDAY 07/17/17 08/07/17 08/06/17 19:00 History Pnv No.95/Ferrous Fum/Folic AC 1 tab PO QDAY 07/17/17 08/07/17 08/06/17 19:00 History [ Vitamins Tablet] Nitrofurantoin Macrocrystal 100 mg PO BID #14 capsule 08/03/17 08/07/17 Unknown Rx [Macrodantin] Ferrous Sulfate [Feosol 325 MG tab] 325 mg PO BID #60 tablet 08/08/17 Unknown Rx Ibuprofen [Motrin 600 MG tab] 600 mg PO Q6H #30 tablet 08/08/17 Unknown Rx Vit-Fe Fumar-FA [ 1 each PO QDAY #30 tablet 08/08/17 Unknown Rx Vitamin] ED Physical Exam - General Limitations: No Limitations General appearance: alert, in no apparent distress - Head Head exam: Present: atraumatic, normocephalic - Eye Eye exam: Present: normal appearance, PERRL, EOMI Pupils: Present: normal accommodation - ENT ENT exam: Present: normal exam, mucous membranes moist - Neck Neck exam: Present: normal inspection, full ROM - Respiratory Respiratory exam: Present: normal lung sounds bilaterally. Absent: respiratory distress, wheezes, rales, rhonchi, chest wall tenderness, accessory muscle use, decreased breath sounds - Cardiovascular Cardiovascular Exam: Present: regular rate, normal rhythm. Absent: bradycardia, tachycardia, systolic murmur, diastolic murmur, rubs, gallop - GI/Abdominal GI/Abdominal exam: Present: soft, normal bowel sounds. Absent: distended, tenderness, guarding, rebound, hyperactive bowel sounds, organomegaly, mass, bruit, pulsatile mass - Extremities Exam Extremities exam: Present: normal inspection, full ROM, normal capillary refill. Absent: calf tenderness - Back Exam Back exam: Present: normal inspection, full ROM. Absent: tenderness, CVA tenderness (R), CVA tenderness (L), muscle spasm - Neurological Exam Neurological exam: Present: alert, oriented X3, CN II-XII intact, normal gait, motor sensory deficit. Absent: abnormal gait, reflexes normal - Psychiatric Psychiatric exam: Present: normal affect, normal mood. Absent: anxious, flat affect, manic - Skin Skin exam: Present: warm, dry, intact, normal color. Absent: rash ED Course Vital Signs 04/07/18 17:42 Temperature 97.9 F Pulse Rate 84 Respiratory 18 Rate Blood Pressure 122/61 O2 Sat by Pulse 100 Oximetry ED Medical Decision Making - Lab Data Result diagrams: 04/07/18 18:18 - Radiology Data Radiology results: report reviewed (ultrasound shows a fetus is 6 weeks 6 days, live intrauterine 125 bpm, normal amniotic fluid, EDC 11/25/2018) Critical care attestation.: If time is entered above; I have spent that time in minutes in the direct care of this critically ill patient, excluding procedure time. 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 Return to the emergency department. She is experiencing worsening bleeding, severe pain, presyncope or syncope, chest pain, fever, and he suggests that your condition is worsening. Continue no your current vitamins Referrals: MARLENE ABURTO [Primary Care Provider] - 3-5 Days [facility] [Provider [facility]] - 3-5 Days
[2018-04-07 23:15] VITALS: BP 112/66
== END 2018-04-07 23:15 | disposition home or self-care (01) ==
LOC: ED 17:32
DX: O20.0 Threatened abortion (principal); Z3A.01 Less than 8 weeks gestation of pregnancy
CPT/HCPCS: 36415; 76801; 76817; 81001; 84702; 85025; 86850; 86900; 86901; 99284

== ENCOUNTER 2018-12-20 20:46 | Outpatient (CLI) | payer MEDICAID ==
[2018-12-20 21:06] VITALS: BP 125/72
[2018-12-20] MEDS ORDERED: LACTATED RINGERS 500 ML IV ONE (21:42)
[2018-12-20 22:35] LABS: Bacteria,Urine 1+ /HPF (Negative); Bilirubin,Urine NEG (Negative); Blood,Urine MOD (Negative); Color,Urine Yellow (Yellow); Mucus,Urine 2+ /HPF; Urobilinogen,Urine < 2.0 mg/dL (<2.0)
--- NOTE | 2018-12-20 23:47 | Ultrasound Report ---
ULTRASOUND OBSTETRIC LIMITED INDICATION / CLINICAL INFORMATION: Heart Rates for Twins. COMPARISON: None available. FINDINGS: HEART RATE (beats per minute): Fetus A = 155 bpm. Fetus B = 156 bpm. ADDITIONAL FINDINGS: Cervical length is 2.8 cm. IMPRESSION: 1. Twin intrauterine with heart rates within normal limits. Signer Name: Eliot Morton MD Signed: 12/20/2018 11:43 PM Workstation Name: [id number]
== END 2018-12-20 23:55 | disposition home or self-care (01) ==
LOC: TRG 20:46
PROVIDERS: ATTEND Obstetrics & Gynecology
DX: O26.892 Other specified pregnancy related conditions, second trimester (principal); R10.30 Lower abdominal pain, unspecified; M54.5 Low back pain; O30.002 Twin pregnancy, unspecified number of placenta and unspecified number of amniotic sacs, second trimester; O47.02 False labor before 37 completed weeks of gestation, second trimester; Z3A.21 21 weeks gestation of pregnancy
CPT/HCPCS: 59025; 76815; 81001; J7120; 96360

== ENCOUNTER 2019-01-23 13:49 | Inpatient (IN) | payer MEDICAID ==
[2019-01-23] MEDS ORDERED: SENNOSIDES/DOCUSATE SODIUM 8.6/50 MG TAB PO PRN (14:09)
[2019-01-23] MEDS ORDERED: ONDANSETRON 4 MG/2 ML INJ IV PRN (14:09)
[2019-01-23] MEDS ORDERED: SIMETHICONE 80 MG CHEW TAB PO PRN (14:09)
[2019-01-23] MEDS ORDERED: diphenhydrAMINE 25 MG CAP PO PRN (14:09)
--- NOTE | 2019-01-23 14:29 | History and Physical Report ---
History of Present Illness Date of examination: 01/23/19 Chief complaint: Twins; Shortened cervix History of present illness: Pt is a 23yo BF EDC 04/26/19; EGA 26 5/7 weeks presents to L&D from the office for evaluation of shortened cervix. She received care at [facility] since 13 weeks and co-managed by [facility] for Twin gestation (Di/Di), shortened cervix and Alpha Thalassemia carrier. She denied contractions, but cervix was 3/50/-3 in the office per CNM. records are available. 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 Social history: no significant social history, single - Obstetrical History Expected Date of Delivery: 04/26/19 Actual Gestation: 26 Week(s) 6 Day(s) : 4 Medications and Allergies Allergies Allergy/AdvReac Type Severity Reaction Status Date / Time No Known Allergies Allergy Verified 12/20/18 21:51 Home Medications Medication Instructions Recorded Confirmed Last Taken Type Vit-Fe Fumar-FA [ 1 tab PO Q24H 12/20/18 01/23/19 01/22/19 Hist ory Vitamin] Active Meds: Active Medications Acetaminophen (Tylenol) 650 mg PO Q4H PRN PRN Reason: Pain MILD(1-3)/Fever >100.5/LANGFORD Betamethasone Acet/Betameth SodPhos (Celestone Soluspan) 12 mg IM Q24HR TRICIA Stop: 01/24/19 10:01 Diphenhydramine HCl (Benadryl) 25 mg PO Q6H PRN PRN Reason: Itching Docusate Sodium (Colace) 100 mg PO Q12H PRN PRN Reason: Constipation Lactated Ringer's (Lactated Ringers) 1,000 mls @ 125 mls/hr IV DIRECT TRICIA Magnesium Sulfate (Magnesium Sulfate 4gm/100ml) 4 gm in 100 mls @ 300 mls/hr IV ONCE ONE Stop: 01/23/19 14:28 Magnesium Sulfate (Magnesium Sulfate 40gm/1000ml) 40 gm in 1,000 mls @ 50 mls/hr IV DIRECT TRICIA Multivitamins/Iron/Calcium ( Vitamin) 1 each PO QDAY TRICIA Ondansetron HCl (Zofran) 4 mg IV Q6H PRN PRN Reason: Nausea And Vomiting Senna/Docusate Sodium (Senokot S) 2 tab PO Q12H PRN PRN Reason: Laxative Effect Simethicone (Mylicon) 80 mg PO Q6H PRN PRN Reason: Gas pain Review of Systems All systems: negative - Physical Exam Breasts: Positive: deferred Cardiovascular: Regular rate Lungs: Positive: Clear to auscultation Abdomen: Positive: normal appearance, soft Genitourinary (Female): Positive: normal external genitalia Uterus: Positive: enlarged Extremities: Positive: normal - Obstetrical FHR: category 1 Uterine Contraction Monitor Mode: External Cervical Dilatation: 3 (per CNM) Cervical Effacement Percentage: 50 station: -3 Results Result Diagrams: 01/23/19 16:46 01/23/19 16:46 All other labs normal. Assessment and Plan - Patient Problems (1) 26 weeks gestation of Onset Date: 01/23/19 Current Visit: Yes Status: Acute Plan to address problem: A: IUP @ 26 5/7 weeks Twin gestation (Di/Di) Previous C Section Shortened cervix P: Admit to L&D for Observation Will begin IV Magnesium sulfate, IM steroids and IV Ampicillin Obtain NICU and [facility] consultation (2) Twin gestation, dichorionic diamniotic Onset Date: 01/23/19 Current Visit: Yes Status: Acute Qualifiers: Trimester: third trimester Qualified Code(s): O30.043 - Twin , dichorionic/diamniotic, third trimester (3) Previous section complicating Onset Date: 01/23/19 Current Visit: Yes Status: Acute (4) Cervical shortening affecting in third trimester Onset Date: 01/23/19 Current Visit: Yes Status: Acute
[2019-01-23] MEDS ORDERED: AMPICILLIN/NS 2 GM/100 ML 2 GM/100 ML BAG IV ONE (15:00)
[2019-01-23] MEDS ORDERED: MAGNESIUM SULFATE 4 GM/100 ML BAG IV ONE (15:09)
--- NOTE | 2019-01-23 16:35 | Consultation ---
History of Present Illness Consult date: 01/23/19 Reason for consult: other (Yanira twins with suspected PTL) History of present illness: Ms. Jett is a 23yo, , at 26.5 weeks with MAILE of 04/26/19. She is followed outpatient by [facility] secondary to Yanira twin , PTL/D hx, and Cervical shortening with current . She was recently seen in [facility] office on 01/22/19 for twin and cervical length surveillance. Cervical length was 1.17cm by transvaginal ultrasound assessment and reassuring surveillance appreciated during assessment. She presents to L&D from primary OB office today after evaluation of cervix to be 3-4 cm dilated. She reports increase pressure. She denies contractions, leaking of fluid, and bleeding. She admits to positive movements. 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 - Obstetrical History : 4 Hx # Term Pregnancies: 1 Number of Pregnancies: 1 Number of Living Children: 2 Medications and Allergies Allergies Allergy/AdvReac Type Severity Reaction Status Date / Time No Known Allergies Allergy Verified 12/20/18 21:51 Home Medications Medication Instructions Recorded Confirmed Last Taken Type Vit-Fe Fumar-FA [ 1 tab PO Q24H 12/20/18 12/20/18 Unknown History Vitamin] Active Meds: Active Medications Acetaminophen (Tylenol) 650 mg PO Q4H PRN PRN Reason: Pain MILD(1-3)/Fever >100.5/LANGFORD Betamethasone Acet/Betameth SodPhos (Celestone Soluspan) 12 mg IM Q24HR TRICIA Stop: 01/24/19 10:01 Diphenhydramine HCl (Benadryl) 25 mg PO Q6H PRN PRN Reason: Itching Docusate Sodium (Colace) 100 mg PO Q12H PRN PRN Reason: Constipation Lactated Ringer's (Lactated Ringers) 1,000 mls @ 125 mls/hr IV DIRECT TRICIA Magnesium Sulfate (Magnesium Sulfate 40gm/1000ml) 40 gm in 1,000 mls @ 50 mls/hr IV DIRECT TRICIA Ampicillin Sodium (Ampicillin/Ns 1 Gm/50 Ml) 1 gm in 50 mls @ 100 mls/hr IV Q6HR TRICIA; Protocol Multivitamins/Iron/Calcium ( Vitamin) 1 each PO QDAY TRICIA Ondansetron HCl (Zofran) 4 mg IV Q6H PRN PRN Reason: Nausea And Vomiting Senna/Docusate Sodium (Senokot S) 2 tab PO Q12H PRN PRN Reason: Laxative Effect Simethicone (Mylicon) 80 mg PO Q6H PRN PRN Reason: Gas pain Review of Systems Constitutional: other (denies fatigue, fever, chills) Eyes: other (denies visual disturbances) Ears, nose, mouth and throat: deferred Cardiovascular: other (denies chest pain, palpitations, edema) Respiratory: other (denies SOB, wheezing, coughing) Breasts: deferred Gastrointestinal: other (denies abdominal pain, diarrhea, constipation, nausea/vomiting) Genitourinary: other (denies contractios, leaking of fluid, and bleeding. Complains of increased pressure) Rectal Exam: deferred Neurological: other (denies headaches) - Vital Signs Vital signs: Vital Signs Pulse BP 103 H 119/67 01/23/19 14:33 01/23/19 14:33 Temp Pulse Resp BP Pulse Ox 98.5 F 103 H 18 119/67 100 01/23/19 14:45 01/23/19 14:45 01/23/19 14:45 01/23/19 14:45 01/23/19 14:45 - Physical Exam Breasts: Positive: deferred Cardiovascular: Regular rate, Normal S1, Normal S2 Lungs: Positive: Clear to auscultation, Normal air movement Abdomen: Positive: normal appearance, soft, other (gravid) Results All other labs normal. Assessment and Plan A- Yanira IUP 26.5 weeks (MAILE 04/26/19) VSS BPP and ultrasound performed inpatient- results pending Cervical shortening- 1.17cm ( by [facility] assessment on 01/22/19) PTL/D hx Magnesium Sulfate infusing Ampicillin ordered Betamethasone x 1 received Positive Trichomonas in November, DALTON performed at primary OB today P- Continue with plan of care Magnesium Sulfate for Neuro-protection Administer Betamethasone x 2 for lung maturity Continuous monitoring, toco for contractions Consider Progesterone 200mg vaginally QHS Tocolytics as indicated Consult NICU Consider delivery with distress/nonreassuring behavior. Thank you for your consult. For additional questions or concerns, please contact gerontology aide SURYA VIZCAINO ( Dr. Radford).
[2019-01-23] MEDS: BETAMET ACET/BETAMET NA PH 6 MG/ML INJ 5 ML MDV IM SCH (16:38)
--- NOTE | 2019-01-23 16:54 | Ultrasound Report ---
Limited OB ultrasound for cervical length INDICATION: Twin gestation FINDINGS: There is a twin gestation. Cervix measures 2.4 cm in length. There is a fundal pressure not ed with the upper cervix measures 1.8 cm. Baby A is breech and baby B is in a transverse position with head on maternal right BIOPHYSICAL PROFILE TWIN A INDICATION: Twin gestation COMPARISON: None FINDINGS: breathing movement: 2/2 movement: 2/2 posture and tone: 2/2 Qualitative amniotic fluid volume: 2/2 IMPRESSION: Total score for biophysical profile is 8/8 heart rate is 157 bpm BIOPHYSICAL PROFILE Twin B INDICATION: Twin gestation COMPARISON: None FINDINGS: breathing movement: 2/2 movement: 2/2 posture and tone: 2/2 Qualitative amniotic fluid volume: 2/2 IMPRESSION: Total score for biophysical profile is 8/8 heart rate is 147 bpm Signer Name: Vinay Patel MD Signed: 01/23/2019 4:49 PM Workstation Name: [id number]
[2019-01-23] MEDS: LACTATED RINGERS 1,000 ML IV SCH (17:00)
[2019-01-23] MEDS: MAGNESIUM SULFATE 40GM/1000ML 40 GM/1,000 ML BAG IV SCH (17:10)
[2019-01-23 17:17] LABS: Basophils % (Auto) 0.1 % (0.0-1.8); Eosinophils # (Auto) 0.1 K/mm3 (0.0-0.4); Eosinophils % (Auto) 0.6 % (0.0-4.3); Hematocrit 31.5 % (30.3-42.9); Lymphocytes # (Auto) 1.8 K/mm3 (1.2-5.4); Mean Corpuscular HGB Conc 32 % (30-34); Mean Corpuscular Volume 83 fl (79-97); Monocytes # (Auto) 0.7 K/mm3 (0.0-0.8); Monocytes % (Auto) 8.5 % (0.0-7.3); Platelet Count 305 K/mm3 (140-440); Red Blood Count 3.78 M/mm3 (3.65-5.03); Red Cell Distribution Width 16.1 % (13.2-15.2)
[2019-01-23 17:37] LABS: Alanine Aminotransferase 15 units/L (7-56); Albumin 3.8 g/dL (3.9-5); BUN/Creatinine Ratio 18; Blood Urea Nitrogen 9 mg/dL (7-17); Calcium 9.3 mg/dL (8.4-10.2); Hemolysis Index 2
[2019-01-23] MEDS ORDERED: AMPICILLIN/NS 1 GM/50 ML 1 GM/50 ML BAG IV SCH (18:00)
[2019-01-23 18:47] LABS: Bacteria,Urine 1+ /HPF (Negative); Bilirubin,Urine NEG (Negative); Blood,Urine SM (Negative); Color,Urine Yellow (Yellow); Mucus,Urine FEW /HPF; Protein,Urine <15 mg/dL mg/dL (Negative); Urobilinogen,Urine < 2.0 mg/dL (<2.0); WBC,Urine < 1.0 /HPF (0.0-6.0)
[2019-01-23] MEDS ORDERED: TERBUTALINE 1 MG/1 ML INJ SUB-Q ONE (20:27)
[2019-01-23] MEDS: AMPICILLIN/NS 1 GM/50 ML 1 GM/50 ML BAG IV SCH (20:52)
[2019-01-24] MEDS: AMPICILLIN/NS 1 GM/50 ML 1 GM/50 ML BAG IV SCH ×4 (03:00→20:57)
[2019-01-24] MEDS: LACTATED RINGERS 1,000 ML IV SCH (06:12)
[2019-01-24] MEDS ORDERED: BICITRA ORAL LIQD 30ML ONE (07:31)
[2019-01-24] MEDS ORDERED: FAMOTIDINE 20 MG/2 ML INJ IV ONE (07:32)
[2019-01-24] MEDS ORDERED: METOCLOPRAMIDE 10 MG/2 ML INJ ONE (07:32)
[2019-01-24] MEDS ORDERED: OXYTOCIN 20 UNIT/1000ML DRIP 0 MILLIUNITS/0 ML BAG IV ONE (08:36)
[2019-01-24] MEDS: MAGNESIUM SULFATE 40GM/1000ML 40 GM/1,000 ML BAG IV SCH ×3 (08:38→18:54)
--- NOTE | 2019-01-24 08:49 | Progress Note ---
Assessment and Plan - Patient Problems (1) 26 weeks gestation of Onset Date: 01/23/19 Current Visit: Yes Status: Acute Plan to address problem: A: IUP @ 26 6/7 weeks Twin gestation (Di/Di) Previous C Section Shortened cervix Advanced cervical dilatation P: Continue with Observation Continue with IV Magnesium sulfate, IM steroids and IV Ampicillin Appreciate NICU and [facility] consultation Will deliver by Repeat C Section 01/26/19 after 2nd steroid dose today (2) Twin gestation, dichorionic diamniotic Onset Date: 01/23/19 Current Visit: Yes Status: Acute Qualifiers: Trimester: third trimester Qualified Code(s): O30.043 - Twin , dichorionic/diamniotic, third trimester (3) Previous section complicating Onset Date: 01/23/19 Current Visit: Yes Status: Acute (4) Cervical shortening affecting in third trimester Onset Date: 01/23/19 Current Visit: Yes Status: Acute Subjective - Subjective Date of service: 01/24/19 Principal diagnosis: IUP @ 26 6/7 weeks; Twin gestation; PTL Interval history: Pt is a 23yo BF EDC 04/26/19; EGA 26 6/7 weeks presented to L&D from the office for evaluation of shortened cervix. She received care at [facility] since 13 weeks and co-managed by [facility] for Twin gestation (Di/Di), shortened cervix and Alpha Thalassemia carrier. She denied contractions, but cervix was 3/50/-3 in the office per CNM. She is currently on IV Magnesium sulfate, IV Ampicillin and received her 1st dose of steroids, but is having occasional contractions. Patient reports: movement normal, contractions, no new complaints, no loss of fluid, no vaginal bleeding Objective - Vital Signs Vital Signs: Vital Signs - 12hr 01/23/19 01/23/19 01/23/19 20:48 20:53 20:58 Temperature Pulse Rate 121 H 113 H 114 H Blood Pressure O2 Sat by Pulse 100 100 100 Oximetry 01/23/19 01/23/19 01/23/19 21:03 21:06 21:07 Temperature Pulse Rate 118 H 111 H 104 H Blood Pressure 98/55 97/54 O2 Sat by Pulse 100 Oximetry 01/23/19 01/23/19 01/23/19 21:08 21:13 21:19 Temperature Pulse Rate 122 H 108 H 110 H Blood Pressure O2 Sat by Pulse 100 100 100 Oximetry 01/23/19 01/23/19 01/23/19 21:24 21:29 21:34 Temperature Pulse Rate 118 H 117 H 122 H Blood Pressure O2 Sat by Pulse 100 99 100 Oximetry 01/23/19 01/23/19 01/23/19 21:39 21:44 21:49 Temperature Pulse Rate 123 H 125 H 118 H Blood Pressure O2 Sat by Pulse 100 99 100 Oximetry 01/23/19 01/23/19 01/23/19 21:54 21:59 22:04 Temperature Pulse Rate 115 H 117 H 114 H Blood Pressure O2 Sat by Pulse 100 98 99 Oximetry 01/23/19 01/23/19 01/23/19 22:09 22:14 22:19 Temperature Pulse Rate 109 H 113 H 119 H Blood Pressure O2 Sat by Pulse 98 98 97 Oximetry 01/23/19 01/23/19 01/23/19 22:24 22:29 22:34 Temperature Pulse Rate 116 H 114 H 112 H Blood Pressure 100/54 O2 Sat by Pulse 97 97 97 Oximetry 01/23/19 01/23/19 01/23/19 22:39 22:44 22:49 Temperature Pulse Rate 117 H 106 H 113 H Blood Pressure O2 Sat by Pulse 96 97 96 Oximetry 01/23/19 01/23/19 01/23/19 22:53 22:54 22:59 Temperature Pulse Rate 114 H 114 H 107 H Blood Pressure O2 Sat by Pulse 93 94 93 Oximetry 01/23/19 01/23/19 01/23/19 23:04 23:07 23:09 Temperature Pulse Rate 105 H 111 H 108 H Blood Pressure O2 Sat by Pulse 93 92 97 Oximetry 01/23/19 01/23/19 01/23/19 23:14 23:24 23:32 Temperature Pulse Rate 101 H 115 H 105 H Blood Pressure 99/48 O2 Sat by Pulse 98 98 Oximetry 01/23/19 01/23/19 01/23/19 23:37 23:44 23:49 Temperature Pulse Rate 110 H 116 H 106 H Blood Pressure O2 Sat by Pulse 99 99 97 Oximetry 01/23/19 01/23/19 01/23/19 23:52 23:54 23:59 Temperature Pulse Rate 107 H 110 H 113 H Blood Pressure 97/54 O2 Sat by Pulse 98 97 Oximetry 01/24/19 01/24/19 01/24/19 00:04 00:09 00:14 Temperature Pulse Rate 112 H 116 H 116 H Blood Pressure O2 Sat by Pulse 98 99 98 Oximetry 01/24/19 01/24/19 01/24/19 00:19 00:24 00:25 Temperature Pulse Rate 108 H 113 H 112 H Blood Pressure 98/57 O2 Sat by Pulse 98 98 Oximetry 01/24/19 01/24/19 01/24/19 00:29 00:34 00:39 Temperature Pulse Rate 112 H 110 H 109 H Blood Pressure O2 Sat by Pulse 96 94 95 Oximetry 01/24/19 01/24/19 01/24/19 00:43 00:44 00:49 Temperature Pulse Rate 108 H 109 H 110 H Blood Pressure O2 Sat by Pulse 94 94 94 Oximetry 01/24/19 01/24/19 01/24/19 00:54 00:59 01:04 Temperature Pulse Rate 113 H 109 H 113 H Blood Pressure O2 Sat by Pulse 97 96 97 Oximetry 01/24/19 01/24/19 01/24/19 01:09 01:14 01:19 Temperature Pulse Rate 114 H 109 H 111 H Blood Pressure O2 Sat by Pulse 97 97 98 Oximetry 01/24/19 01/24/19 01/24/19 01:24 01:27 01:29 Temperature Pulse Rate 117 H 117 H 112 H Blood Pressure 93/46 88/42 93/46 O2 Sat by Pulse 99 97 Oximetry 01/24/19 01/24/19 01/24/19 01:34 01:39 01:44 Temperature Pulse Rate 109 H 115 H 109 H Blood Pressure O2 Sat by Pulse 96 96 98 Oximetry 01/24/19 01/24/19 01/24/19 01:49 01:54 01:59 Temperature Pulse Rate 111 H 106 H 107 H Blood Pressure O2 Sat by Pulse 96 96 97 Oximetry 01/24/19 01/24/19 01/24/19 02:04 02:09 02:14 Temperature Pulse Rate 116 H 119 H 111 H Blood Pressure O2 Sat by Pulse 98 98 100 Oximetry 01/24/19 01/24/19 01/24/19 02:19 02:24 02:25 Temperature Pulse Rate 111 H 107 H 114 H Blood Pressure 97/52 O2 Sat by Pulse 99 99 Oximetry 01/24/19 01/24/19 01/24/19 02:29 02:34 02:39 Temperature Pulse Rate 112 H 113 H 119 H Blood Pressure O2 Sat by Pulse 97 99 98 Oximetry 01/24/19 01/24/19 01/24/19 02:44 02:49 02:54 Temperature Pulse Rate 118 H 114 H 116 H Blood Pressure O2 Sat by Pulse 97 97 99 Oximetry 01/24/19 01/24/19 01/24/19 02:59 03:04 03:09 Temperature Pulse Rate 107 H 110 H 111 H Blood Pressure O2 Sat by Pulse 98 99 100 Oximetry 01/24/19 01/24/19 01/24/19 03:14 03:19 03:24 Temperature Pulse Rate 111 H 112 H 110 H Blood Pressure 110/55 O2 Sat by Pulse 97 98 98 Oximetry 01/24/19 01/24/19 01/24/19 03:29 03:34 03:39 Temperature Pulse Rate 106 H 106 H 110 H Blood Pressure O2 Sat by Pulse 96 97 98 Oximetry 01/24/19 01/24/19 01/24/19 03:44 03:49 03:54 Temperature Pulse Rate 107 H 107 H 105 H Blood Pressure O2 Sat by Pulse 97 97 96 Oximetry 01/24/19 01/24/19 01/24/19 03:59 04:04 04:09 Temperature Pulse Rate 116 H 113 H 109 H Blood Pressure O2 Sat by Pulse 98 98 96 Oximetry 01/24/19 01/24/19 01/24/19 04:14 04:18 04:19 Temperature Pulse Rate 117 H 110 H 110 H Blood Pressure O2 Sat by Pulse 97 94 94 Oximetry 01/24/19 01/24/19 01/24/19 04:24 04:25 04:26 Temperature 98.4 F Pulse Rate 100 H 109 H 105 H Blood Pressure 99/52 O2 Sat by Pulse 94 93 Oximetry 01/24/19 01/24/19 01/24/19 04:29 04:32 04:34 Temperature Pulse Rate 108 H 107 H 107 H Blood Pressure O2 Sat by Pulse 94 94 98 Oximetry 01/24/19 01/24/19 01/24/19 04:39 04:44 04:49 Temperature Pulse Rate 104 H 105 H 110 H Blood Pressure O2 Sat by Pulse 98 99 100 Oximetry 1201/24/19 01/24/19 04:54 04:59 05:04 Temperature Pulse Rate 110 H 109 H 111 H Blood Pressure O2 Sat by Pulse 99 100 98 Oximetry 01/24/19 01/24/19 01/24/19 05:09 05:14 05:19 Temperature Pulse Rate 102 H 108 H 110 H Blood Pressure O2 Sat by Pulse 98 99 100 Oximetry 01/24/19 01/24/19 01/24/19 05:24 05:25 05:29 Temperature Pulse Rate 68 106 H 109 H Blood Pressure 98/43 O2 Sat by Pulse 86 100 Oximetry 01/24/19 01/24/19 01/24/19 05:34 05:39 05:44 Temperature Pulse Rate 106 H 113 H 111 H Blood Pressure O2 Sat by Pulse 100 100 99 Oximetry 01/24/19 01/24/19 01/24/19 05:49 05:54 05:59 Temperature Pulse Rate 116 H 113 H 109 H Blood Pressure O2 Sat by Pulse 98 100 100 Oximetry 01/24/19 01/24/19 01/24/19 06:04 06:09 06:14 Temperature Pulse Rate 110 H 111 H 100 H Blood Pressure O2 Sat by Pulse 100 100 99 Oximetry 01/24/19 01/24/19 01/24/19 06:19 06:24 06:29 Temperature Pulse Rate 101 H 108 H 108 H Blood Pressure 103/55 O2 Sat by Pulse 100 100 98 Oximetry 01/24/19 01/24/19 01/24/19 06:34 06:39 06:44 Temperature Pulse Rate 103 H 110 H 105 H Blood Pressure O2 Sat by Pulse 96 99 100 Oximetry 01/24/19 01/24/19 01/24/19 06:49 06:54 06:59 Temperature Pulse Rate 105 H 104 H 106 H Blood Pressure O2 Sat by Pulse 100 100 100 Oximetry 01/24/19 01/24/19 01/24/19 07:04 07:09 07:14 Temperature Pulse Rate 106 H 107 H 111 H Blood Pressure O2 Sat by Pulse 100 100 100 Oximetry 01/24/19 01/24/19 01/24/19 07:19 07:25 07:30 Temperature Pulse Rate 106 H 105 H 105 H Blood Pressure 106/65 O2 Sat by Pulse 100 100 100 Oximetry 01/24/19 01/24/19 01/24/19 08:33 08:36 08:38 Temperature Pulse Rate 53 L 101 H 107 H Blood Pressure 93/50 O2 Sat by Pulse 90 99 Oximetry 01/24/19 01/24/19 08:42 08:43 Temperature Pulse Rate 93 H 103 H Blood Pressure O2 Sat by Pulse 94 93 Oximetry - Exam Breasts: deferred Abdomen: Present: normal appearance, soft Uterus: Present: normal FHR: category 1 Uterine Contraction Monitor Mode: External Cervical Dilatation: 5 Cervical Effacement Percentage: 60 station: -3 Uterine Contraction Pattern: Irregular Uterine Tone Measurement Phase: Contraction Uterine Contraction Intensity: Mild - Labs Labs: Abnormal Labs 01/23/19 01/23/19 01/24/19 16:46 16:46 00:51 Hgb 10.0 L MCH 26 L RDW 16.1 H [place] % (Auto) 8.5 H Sodium 135 L Potassium 3.4 L Carbon Dioxide 19 L Creatinine 0.5 L Magnesium 5.50 H Albumin 3.8 L 01/24/19 06:06 Hgb MCH RDW [place] % (Auto) Sodium Potassium Carbon Dioxide Creatinine Magnesium 6.00 H Albumin Laboratory Results - last 24 hr 01/23/19 01/23/19 01/23/19 16:46 16:46 16:46 WBC 8.3 RBC 3.78 Hgb 10.0 L Hct 31.5 MCV 83 MCH 26 L MCHC 32 RDW 16.1 H Plt Count 305 Lymph % (Auto) 22.0 [place] % (Auto) 8.5 H Eos % (Auto) 0.6 Baso % (Auto) 0.1 Lymph # 1.8 [place] # 0.7 Eos # 0.1 Baso # 0.0 Seg Neutrophils % 68.8 Seg Neutrophils # 5.7 Sodium 135 L Potassium 3.4 L Chloride 99.9 Carbon Dioxide 19 L Anion Gap 20 BUN 9 Creatinine 0.5 L Estimated GFR > 60 BUN/Creatinine Ratio 18 Glucose 68 Calcium 9.3 Magnesium Total Bilirubin 0.20 AST 15 ALT 15 Alkaline Phosphatase 66 Total Protein 7.7 Albumin 3.8 L Albumin/Globulin Ratio 1.0 Urine Color Urine Turbidity Urine pH Ur Specific [place] Urine Protein Urine Glucose (UA) Urine Ketones Urine Blood Urine Nitrite Urine Bilirubin Urine Urobilinogen Ur Leukocyte Esterase Urine WBC (Auto) Urine RBC (Auto) U Epithel Cells (Auto) Urine Bacteria (Auto) Urine Mucus Blood Type O POSITIVE Antibody Screen Negative 01/23/19 01/23/19 01/24/19 16:46 Unknown 00:51 WBC RBC Hgb Hct MCV MCH MCHC RDW Plt Count Lymph % (Auto) [place] % (Auto) Eos % (Auto) Baso % (Auto) Lymph # [place] # Eos # Baso # Seg Neutrophils % Seg Neutrophils # Sodium Potassium Chloride Carbon Dioxide Anion Gap BUN Creatinine Estimated GFR BUN/Creatinine Ratio Glucose Calcium Magnesium 1.90 5.50 H Total Bilirubin AST ALT Alkaline Phosphatase Total Protein Albumin Albumin/Globulin Ratio Urine Color Yellow Urine Turbidity Clear Urine pH 6.0 Ur Specific [place] 1.011 Urine Protein <15 mg/dl Urine Glucose (UA) Neg Urine Ketones 20 Urine Blood Sm Urine Nitrite Neg Urine Bilirubin Neg Urine Urobilinogen < 2.0 Ur Leukocyte Esterase Neg Urine WBC (Auto) < 1.0 Urine RBC (Auto) 2.0 U Epithel Cells (Auto) < 1.0 Urine Bacteria (Auto) 1+ Urine Mucus Few Blood Type Antibody Screen 01/24/19 06:06 WBC RBC Hgb Hct MCV MCH MCHC RDW Plt Count Lymph % (Auto) [place] % (Auto) Eos % (Auto) Baso % (Auto) Lymph # [place] # Eos # Baso # Seg Neutrophils % Seg Neutrophils # Sodium Potassium Chloride Carbon Dioxide Anion Gap BUN Creatinine Estimated GFR BUN/Creatinine Ratio Glucose Calcium Magnesium 6.00 H Total Bilirubin AST ALT Alkaline Phosphatase Total Protein Albumin Albumin/Globulin Ratio Urine Color Urine Turbidity Urine pH Ur Specific [place] Urine Protein Urine Glucose (UA) Urine Ketones Urine Blood Urine Nitrite Urine Bilirubin Urine Urobilinogen Ur Leukocyte Esterase Urine WBC (Auto) Urine RBC (Auto) U Epithel Cells (Auto) Urine Bacteria (Auto) Urine Mucus Blood Type Antibody Screen - Results US- obstetric: report reviewed (Twin A - Breech; Twin B - Transverse; Cervical length 1.8cm)
--- NOTE | 2019-01-24 11:03 | Consultation ---
Consult Note - Parent Education I met with parent(s) and discussed the following:: Need for NICU admission, Poss ible need for intubation and surfactant or other resp support, Temperature regulation, Head ultrasounds to evaluate IVH, Eye exams for ROP screening, Possible need for IV fluids/TPN and IV antibiotics, Possible need for umbilical lines, Importance of providing breast milk & encouraged pumping aft delivery, Donor breast milk if baby meets criteria after , Slow feeding advancement and monitoring of tolerance. NG/OG feeds, Need to monitor for jaundice, Data for survival & survival without significant co-morbidities Parent(s) demonstrated understanding of all the information:: Yes Assessment and Plan - Assessment Gestation:: 26 (26 6/7 weeker) Estimated Weight: N/A Baby's gender: Female Baby's name: Johanne Rosenberg Additional Comment: 26 6/7 weeker, di-di twins to a 23 YO mother, MAILE 04/26/19. Previous CS, presenting with advance cervial dilation, PTL. H/O Alpha thalassemia carrier and previous infant at 31 week at [facility] in 2018. Received steroid x1 and will receive second dose today, on ampicillin, and mag. sulfate. - Plan Plan: Agree with Mag & steroids Will attend delivery Please call NICU with questions
--- NOTE | 2019-01-24 13:55 | Consultation ---
History of Present Illness Consult date: 01/24/19 Requesting physician: YEYO WESTON History of present illness: Ms. Jett is a 23yo, , at 26 6/7 weeks with MAILE of 04/26/19. She is followed outpatient by [facility] secondary to Yanira twin , PTL/D hx, and Cervical shortening with current . She was recently seen in [facility] office on 01/22/19 for twin and cervical length surveillance. Cervical length was 1.17cm by transvaginal ultrasound assessment and reassuring surveillance appreciated during assessment. 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 - Obstetrical History : 4 Hx # Term Pregnancies: 1 Number of Pregnancies: 1 Number of Living Children: 2 Past History Past Medical History: no pertinent history 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 - Obstetrical History : 4 Medications and Allergies Allergies Allergy/AdvReac Type Severity Reaction Status Date / Time No Known Allergies Allergy Verified 12/20/18 21:51 Home Medications Medication Instructions Recorded Confirmed Last Taken Type Vit-Fe Fumar-FA [ 1 tab PO Q24H 12/20/18 01/23/19 01/22/19 History Vitamin] Active Meds: Active Medications Acetaminophen (Tylenol) 650 mg PO Q4H PRN PRN Reason: Pain MILD(1-3)/Fever >100.5/[place] Diphenhydramine HCl (Benadryl) 25 mg PO Q6H PRN PRN Reason: Itching Docusate Sodium (Colace) 100 mg PO Q12H PRN PRN Reason: Constipation Lactated Ringer's (Lactated Ringers) 1,000 mls @ 125 mls/hr IV DIRECT TRICIA Last Admin: 01/24/19 06:12 Dose: 125 mls/hr Documented by: Magnesium Sulfate (Magnesium Sulfate 40gm/1000ml) 40 gm in 1,000 mls @ 50 mls/hr IV DIRECT TRICIA Last Admin: 01/24/19 08:38 Dose: 2 gm/hr, 50 mls/hr Documented by: Ampicillin Sodium (Ampicillin/Ns 1 Gm/50 Ml) 1 gm in 50 mls @ 100 mls/hr IV Q6H [facility]; Protocol Last Admin: 01/24/19 08:39 Dose: 100 mls/hr Documented by: Multivitamins/Iron/Calcium ( Vitamin) 1 each PO QDAY [facility] Ondansetron HCl (Zofran) 4 mg IV Q6H PRN PRN Reason: Nausea And Vomiting Senna/Docusate Sodium (Senokot S) 2 tab PO Q12H PRN PRN Reason: Laxative Effect Simethicone (Mylicon) 80 mg PO Q6H PRN PRN Reason: Gas pain - Vital Signs Vital signs: Vital Signs Pulse BP 103 H 119/67 01/23/19 14:33 01/23/19 14:33 Temp Pulse Resp BP Pulse Ox 97.5 F L 111 H 18 109/53 99 01/24/19 07:00 01/24/19 13:47 01/23/19 19:15 01/24/19 13:24 01/24/19 13:47 Results Result Diagrams: 01/23/19 16:46 01/23/19 16:46 Abnormal lab results 01/23/19 01/23/19 01/24/19 Range/Units 16:46 16:46 00:51 Hgb 10.0 L (10.1-14.3) gm/dl MCH 26 L (28-32) pg RDW 16.1 H (13.2-15.2) % [place] % (Auto) 8.5 H (0.0-7.3) % Sodium 135 L (137-145) mmol/L Potassium 3.4 L (3.6-5.0) mmol/L Carbon Dioxide 19 L (22-30) mmol/L Creatinine 0.5 L (0.7-1.2) mg/dL Magnesium 5.50 H (1.7-2.3) mg/dL Albumin 3.8 L (3.9-5) g/dL 01/24/19 01/24/19 Range/Units 06:06 11:55 Hgb (10.1-14.3) gm/dl MCH (28-32) pg RDW (13.2-15.2) % [place] % (Auto) (0.0-7.3) % Sodium (137-145) mmol/L Potassium (3.6-5.0) mmol/L Carbon Dioxide (22-30) mmol/L Creatinine (0.7-1.2) mg/dL Magnesium 6.00 H 6.50 H (1.7-2.3) mg/dL Albumin (3.9-5) g/dL All other labs normal. Assessment and Plan Assessment and Plan A- Yanira IUP 26 6/7 weeks (MAILE 04/26/19) VSS BPP and ultrasound performed inpatient- Twin A BPP 8/8 Breech Twin B BPP 8/8 Transverse Cervical shortening- 1.17cm ( by [facility] assessment on 01/22/19) PTL/D hx Magnesium Sulfate dc'd due to elevated level Ampicillin ordered Betamethasone x 1 received Positive Trichomonas in November, DALTON performed at primary OB today P- Continue with plan of care Magnesium Sulfate for Neuro-protection Administer Betamethasone x 2 for lung maturity Continuous monitoring, toco for contractions Tocolytics as indicated May try Indocin 50 mg load then 25 mg q 6 hours x 3 days NICU consult Consider delivery with distress/nonreassuring behavior. If continues to dilate would proceed to Repeat C/S if stable If no contractions and remains 5 cm could continue conservative management
[2019-01-24] MEDS ORDERED: BETAMET ACET/BETAMET NA PH 6 MG/ML INJ 5 ML MDV IM SCH (16:08)
[2019-01-24] MEDS: BETAMET ACET/BETAMET NA PH 6 MG/ML INJ 5 ML MDV IM SCH (16:13)
[2019-01-24] MEDS ORDERED: ZOLPIDEM 5 MG TAB PO ONE (17:44)
--- NOTE | 2019-01-25 00:46 | Anesthesia Consultation ---
Anesthesia Consult and Med Hx Date of service: 01/25/19 - Airway Anesthetic Teeth Evaluation: Good ROM Head & Neck: Adequate Mental/Hyoid Distance: Adequate Mallampati Class: Class II Intubation Access Assessment: Probably Good - Pulmonary Exam CTA: Yes - Cardiac Exam Cardiac Exam: RRR - Pre-Operative Health Status ASA Pre-Surgery Classification: ASA2 Proposed Anesthetic Plan: Spinal - Pre-Anesthesia Comment Pre-Anesthesia Comments: PSH: CSECTION. NO ANESTHESIA COMPLICATIONS - Pulmonary Hx Smoking: No Hx Asthma: No Hx Respiratory Symptoms: No SOB: No COPD: No Home Oxygen Therapy: No Hx Pneumonia: No Hx Sleep Apnea: No - Cardiovascular System Hx Hypertension: No Hx Coronary Artery Disease: No Hx Heart Attack/AMI: No Hx Angina: No Hx Percutaneous Transluminal Coronary Angioplasty (PTCA): No Hx Cardia Arrhythmia: No Hx Pacemaker: No Hx Internal Defibrillator: No Hx Valvular Heart Disease: No Hx Heart Murmur: No Hx Peripheral Vascular Disease: No - Central Nervous System Hx Neuromuscular Disorder: No Hx Seizures: No CVA: No Hx Back Pain: No Hx Psychiatric Problems: No - Gastrointestinal Hx Ulcer: No Hx Gastroesophageal Reflux Disease: No - Endocrine Hx Renal Disease: No Hx End Stage Renal Disease: No Hx Cirrhosis: No Hx Liver Disease: No Hx Insulin Dependent Diabetes: No Hx Non-Insulin Dependent Diabetes: No Hx Thyroid Disease: No Hx Hypothyroidism: No Hx Hyperthyroidism: No - Hematic Hx Anemia: Yes (ALPHA THALASSEMIA CARRIER) Hx Sickle Cell Disease: No - Other Systems Hx Alcohol Use: No Hx Substance Use: No Hx Cancer: No Hx Obesity: Yes (BMI 35.2)
--- NOTE | 2019-01-25 00:49 | Anesthesia Day of Surgery ---
Anesthesia Day of Surgery - Day of Surgery Patient Examined: Yes Patient H&P Reviewed: Yes Patient is NPO: Yes Beta Blockers: No Cardiac Clearance: No Pulmonary Clearance: No Jose Juan's Test: N/A
--- NOTE | 2019-01-25 08:07 | Progress Note ---
Assessment and Plan - Patient Problems (1) 26 weeks gestation of Onset Date: 01/23/19 Current Visit: Yes Status: Acute Plan to address problem: A: IUP @ 27 0/7 weeks Twin gestation (Di/Di) - Breech/Transverse Previous C Section Shortened cervix Advanced cervical dilatation P: Continue with present management as per [facility] recommendations Will discontinue IV Magnesium sulfate and start Indocin S/P IM steroids and IV Ampicillin Appreciate NICU and [facility] consultation Will continue with conservative management and deliver by Repeat C Section if labor resumes (2) Twin gestation, dichorionic diamniotic Onset Date: 01/23/19 Current Visit: Yes Status: Acute Qualifiers: Trimester: third trimester Qualified Code(s): O30.043 - Twin , dichorionic/diamniotic, third trimester (3) Previous section complicating Onset Date: 01/23/19 Current Visit: Yes Status: Acute (4) Cervical shortening affecting in third trimester Onset Date: 01/23/19 Current Visit: Yes Status: Acute Subjective - Subjective Date of service: 01/25/19 Principal diagnosis: IUP @ 27 0/7 weeks; Twin gestation; PTL Interval history: Pt is a 23yo BF EDC 04/26/19; EGA 27 0/7 weeks presented to L&D from the office for evaluation of shortened cervix. She received care at [facility] since 13 weeks and co-managed by [facility] for Twin gestation (Di/Di), shortened cervix and Alpha Thalassemia carrier. She denied contractions, but cervix was 3/50/-3 in the office per CNM. Her cervical dilatation was arrested at 5/60/-3 on IV Magnesium sulfate, IV Ampicillin and she completed her 2nd dose of steroids, and not currently lamont. Patient reports: movement normal, no new complaints, no loss of fluid, no vaginal bleeding, no contractions Objective - Vital Signs Vital Signs: Vital Signs - 12hr 01/24/19 01/24/19 01/24/19 20:07 20:12 20:17 Pulse Rate 115 H 109 H 113 H Blood Pressure O2 Sat by Pulse 99 100 100 Oximetry 01/24/19 01/24/19 01/24/19 20:22 20:27 20:32 Pulse Rate 113 H 110 H 115 H Blood Pressure O2 Sat by Pulse 99 100 100 Oximetry 01/24/19 01/24/19 01/24/19 20:37 20:42 20:47 Pulse Rate 112 H 113 H 120 H Blood Pressure O2 Sat by Pulse 100 100 100 Oximetry 01/24/19 01/24/19 01/24/19 20:49 20:52 20:57 Pulse Rate 109 H 111 H 106 H Blood Pressure 102/53 O2 Sat by Pulse 100 99 Oximetry 01/24/19 01/24/19 01/24/19 21:02 21:07 21:12 Pulse Rate 119 H 116 H 107 H Blood Pressure O2 Sat by Pulse 99 100 97 Oximetry 01/24/19 01/24/19 01/24/19 21:17 21:22 21:25 Pulse Rate 112 H 111 H 109 H Blood Pressure 91/51 O2 Sat by Pulse 100 100 Oximetry 01/24/19 01/24/19 01/24/19 21:27 21:32 21:37 Pulse Rate 111 H 110 H 110 H Blood Pressure O2 Sat by Pulse 99 96 96 Oximetry 01/24/19 01/24/19 01/24/19 21:42 21:47 21:52 Pulse Rate 115 H 107 H 116 H Blood Pressure O2 Sat by Pulse 99 98 100 Oximetry 01/24/19 01/24/19 01/24/19 21:57 22:02 22:07 Pulse Rate 110 H 110 H 116 H Blood Pressure O2 Sat by Pulse 99 98 100 Oximetry 01/24/19 01/24/19 01/24/19 22:12 22:17 22:22 Pulse Rate 114 H 109 H 115 H Blood Pressure O2 Sat by Pulse 100 98 98 Oximetry 01/24/19 01/24/19 01/24/19 22:25 22:27 22:32 Pulse Rate 107 H 107 H 103 H Blood Pressure 99/51 O2 Sat by Pulse 97 100 Oximetry 01/24/19 01/24/19 01/24/19 22:37 22:42 22:47 Pulse Rate 106 H 106 H 104 H Blood Pressure O2 Sat by Pulse 98 96 97 Oximetry 01/24/19 01/24/19 01/24/19 22:52 22:57 23:02 Pulse Rate 110 H 115 H 100 H Blood Pressure O2 Sat by Pulse 99 100 99 Oximetry 01/24/19 01/24/19 01/24/19 23:07 23:12 23:17 Pulse Rate 99 H 109 H 109 H Blood Pressure O2 Sat by Pulse 96 97 100 Oximetry 01/24/19 01/24/19 01/24/19 23:22 23:27 23:32 Pulse Rate 101 H 101 H 100 H Blood Pressure O2 Sat by Pulse 100 99 98 Oximetry 01/24/19 01/24/19 01/24/19 23:37 23:42 23:47 Pulse Rate 100 H 102 H 101 H Blood Pressure O2 Sat by Pulse 99 99 99 Oximetry 01/24/19 01/24/19 01/25/19 23:52 23:57 00:02 Pulse Rate 102 H 100 H 100 H Blood Pressure O2 Sat by Pulse 99 98 98 Oximetry 01/25/19 01/25/19 01/25/19 00:07 00:12 00:17 Pulse Rate 101 H 103 H 98 H Blood Pressure O2 Sat by Pulse 97 99 99 Oximetry 01/25/19 01/25/19 01/25/19 00:22 00:25 00:27 Pulse Rate 109 H 97 H 112 H Blood Pressure 112/53 O2 Sat by Pulse 98 99 Oximetry 01/25/19 01/25/19 01/25/19 00:32 00:37 00:41 Pulse Rate 95 H 92 H 98 H Blood Pressure O2 Sat by Pulse 98 98 91 Oximetry 01/25/19 01/25/19 01/25/19 00:42 00:47 00:52 Pulse Rate 89 96 H 95 H Blood Pressure O2 Sat by Pulse 98 97 99 Oximetry 01/25/19 01/25/19 01/25/19 00:57 01:02 01:07 Pulse Rate 98 H 93 H 91 H Blood Pressure O2 Sat by Pulse 98 100 100 Oximetry 01/25/19 01/25/19 01/25/19 01:12 01:17 01:22 Pulse Rate 94 H 101 H 96 H Blood Pressure O2 Sat by Pulse 99 100 100 Oximetry 01/25/19 01/25/19 01/25/19 01:27 01:32 01:37 Pulse Rate 101 H 89 92 H Blood Pressure O2 Sat by Pulse 99 100 100 Oximetry 01/25/19 01/25/19 01/25/19 01:42 01:47 01:52 Pulse Rate 94 H 96 H 102 H Blood Pressure O2 Sat by Pulse 100 100 100 Oximetry 01/25/19 01/25/19 01/25/19 01:57 02:02 02:07 Pulse Rate 93 H 93 H 97 H Blood Pressure O2 Sat by Pulse 99 98 97 Oximetry 01/25/19 01/25/19 01/25/19 02:12 02:17 02:22 Pulse Rate 98 H 93 H 98 H Blood Pressure O2 Sat by Pulse 95 99 98 Oximetry 01/25/19 01/25/19 01/25/19 02:27 02:32 02:37 Pulse Rate 97 H 93 H 94 H Blood Pressure O2 Sat by Pulse 97 99 98 Oximetry 01/25/19 01/25/19 01/25/19 02:42 02:47 02:52 Pulse Rate 91 H 93 H 103 H Blood Pressure O2 Sat by Pulse 97 98 99 Oximetry 01/25/19 01/25/19 01/25/19 02:57 03:02 03:07 Pulse Rate 94 H 92 H 94 H Blood Pressure O2 Sat by Pulse 100 99 97 Oximetry 01/25/19 01/25/19 01/25/19 03:12 03:17 03:18 Pulse Rate 99 H 100 H 102 H Blood Pressure O2 Sat by Pulse 99 95 92 Oximetry 01/25/19 01/25/19 01/25/19 03:22 03:27 03:32 Pulse Rate 99 H 105 H 104 H Blood Pressure O2 Sat by Pulse 96 100 100 Oximetry 01/25/19 01/25/19 01/25/19 03:37 03:42 03:47 Pulse Rate 110 H 109 H 101 H Blood Pressure O2 Sat by Pulse 99 100 99 Oximetry 01/25/19 01/25/19 01/25/19 03:52 03:57 04:02 Pulse Rate 104 H 100 H 100 H Blood Pressure O2 Sat by Pulse 99 100 99 Oximetry 01/25/19 01/25/19 01/25/19 04:07 04:12 04:17 Pulse Rate 101 H 102 H 101 H Blood Pressure O2 Sat by Pulse 99 99 100 Oximetry 01/25/19 01/25/19 01/25/19 04:22 04:27 04:32 Pulse Rate 102 H 101 H 102 H Blood Pressure O2 Sat by Pulse 99 98 100 Oximetry 01/25/19 01/25/19 01/25/19 04:37 04:42 04:47 Pulse Rate 98 H 107 H 110 H Blood Pressure O2 Sat by Pulse 98 100 100 Oximetry 01/25/19 01/25/19 01/25/19 04:52 04:57 05:02 Pulse Rate 104 H 103 H 127 H Blood Pressure O2 Sat by Pulse 99 99 98 Oximetry 01/25/19 01/25/19 01/25/19 05:07 05:12 05:17 Pulse Rate 119 H 106 H 109 H Blood Pressure O2 Sat by Pulse 100 97 99 Oximetry 01/25/19 01/25/19 01/25/19 05:22 05:27 05:32 Pulse Rate 100 H 107 H 108 H Blood Pressure O2 Sat by Pulse 98 99 98 Oximetry 01/25/19 01/25/19 01/25/19 05:37 05:42 05:47 Pulse Rate 110 H 108 H 107 H Blood Pressure O2 Sat by Pulse 99 99 100 Oximetry 01/25/19 01/25/19 01/25/19 05:52 05:57 06:02 Pulse Rate 104 H 110 H 106 H Blood Pressure O2 Sat by Pulse 99 100 100 Oximetry 01/25/19 01/25/19 01/25/19 06:07 06:12 06:17 Pulse Rate 105 H 109 H 107 H Blood Pressure O2 Sat by Pulse 98 100 100 Oximetry 01/25/19 01/25/19 01/25/19 06:22 06:24 06:27 Pulse Rate 105 H 106 H 108 H Blood Pressure 97/56 O2 Sat by Pulse 99 99 Oximetry 01/25/19 01/25/19 01/25/19 06:32 06:37 06:42 Pulse Rate 108 H 108 H 108 H Blood Pressure O2 Sat by Pulse 99 100 99 Oximetry 01/25/19 01/25/19 01/25/19 06:47 06:52 06:57 Pulse Rate 105 H 105 H 107 H Blood Pressure O2 Sat by Pulse 100 100 100 Oximetry 01/25/19 01/25/19 01/25/19 07:02 07:07 07:12 Pulse Rate 103 H 105 H 105 H Blood Pressure O2 Sat by Pulse 100 99 95 Oximetry 01/25/19 01/25/19 01/25/19 07:17 07:22 07:24 Pulse Rate 102 H 106 H 103 H Blood Pressure 121/78 O2 Sat by Pulse 99 98 Oximetry 01/25/19 01/25/19 01/25/19 07:27 07:32 07:37 Pulse Rate 110 H 116 H 103 H Blood Pressure O2 Sat by Pulse 100 100 99 Oximetry 01/25/19 01/25/19 01/25/19 07:42 07:47 07:52 Pulse Rate 101 H 101 H 105 H Blood Pressure O2 Sat by Pulse 99 99 100 Oximetry 01/25/19 01/25/19 07:57 08:02 Pulse Rate 110 H 100 H Blood Pressure O2 Sat by Pulse 99 99 Oximetry - Exam Breasts: deferred Abdomen: Present: normal appearance Uterus: Present: normal FHR: category 1 Uterine Contraction Monitor Mode: External Cervical Dilatation: 5 Cervical Effacement Percentage: 60 station: -3 Uterine Contraction Pattern: Absent - Labs Labs: Abnormal Labs 01/23/19 01/23/19 01/24/19 16:46 16:46 00:51 Hgb 10.0 L MCH 26 L RDW 16.1 H [place] % (Auto) 8.5 H Sodium 135 L Potassium 3.4 L Carbon Dioxide 19 L Creatinine 0.5 L Magnesium 5.50 H Albumin 3.8 L 01/24/19 01/24/19 01/24/19 06:06 11:55 19:53 Hgb MCH RDW [place] % (Auto) Sodium Potassium Carbon Dioxide Creatinine Magnesium 6.00 H 6.50 H 5.90 H Albumin 01/25/19 01/25/19 00:57 05:41 Hgb MCH RDW [place] % (Auto) Sodium Potassium Carbon Dioxide Creatinine Magnesium 6.00 H 6.30 H Albumin Laboratory Results - last 24 hr 01/24/19 01/24/19 01/25/19 11:55 19:53 00:57 Magnesium 6.50 H 5.90 H 6.00 H 01/25/19 05:41 Magnesium 6.30 H - Results US- obstetric: report reviewed (Twin A - Breech; BPP 09/26; Twin B - Transverse; BPP 09/26)
[2019-01-25] MEDS: AMPICILLIN/NS 1 GM/50 ML 1 GM/50 ML BAG IV SCH (08:24)
[2019-01-25] MEDS: INDOMETHACIN 25 MG CAP PO SCH ×2 (10:57→22:05)
[2019-01-25] MEDS: PRENATAL VIT27-FE FUMARATE-FOLIC ACID VIT TAB PO SCH (10:58)
[2019-01-25] MEDS ORDERED: SODIUM CHLORIDE 0.9% IRR 1,500 ML BOTTLE IR ONE (17:49)
[2019-01-25] MEDS ORDERED: WATER FOR IRRIG STERILE 1,500 ML BOTTLE IR ONE (17:49)
[2019-01-26] MEDS: LACTATED RINGERS 1,000 ML IV SCH (05:53)
[2019-01-26] MEDS: PRENATAL VIT27-FE FUMARATE-FOLIC ACID VIT TAB PO SCH (08:59)
[2019-01-26] MEDS: INDOMETHACIN 25 MG CAP PO SCH ×2 (11:37→21:20)
[2019-01-26] MEDS: AMPICILLIN/NS 1 GM/50 ML 1 GM/50 ML BAG IV SCH ×3 (11:41→21:45)
--- NOTE | 2019-01-26 12:16 | Progress Note ---
Assessment and Plan - Patient Problems (1) 26 weeks gestation of Onset Date: 01/23/19 Current Visit: Yes Status: Resolved Plan to address problem: A: IUP @ 27 1/7 weeks Twin gestation (Di/Di) - Breech/Transverse Previous C Section Shortened cervix Advanced cervical dilatation P: Continue with present management as per [facility] recommendations Will continue Indocin x 3 days S/P Magnesium sulfate S/P IM steroids and IV Ampicillin Appreciate NICU and [facility] consultation Will continue with conservative management and deliver by Repeat C Section if labor resumes (2) Twin gestation, dichorionic diamniotic Onset Date: 01/23/19 Current Visit: Yes Status: Acute Qualifiers: Trimester: third trimester Qualified Code(s): O30.043 - Twin , dichorionic/diamniotic, third trimester (3) Previous section complicating Onset Date: 01/23/19 Current Visit: Yes Status: Acute (4) Cervical shortening affecting in third trimester Onset Date: 01/23/19 Current Visit: Yes Status: Acute (5) 27 weeks gestation of Onset Date: 01/26/19 Current Visit: Yes Status: Acute Subjective - Subjective Date of service: 01/26/19 Principal diagnosis: IUP @ 27 1/7 weeks; Twin gestation; PTL Interval history: Pt is a 23yo BF EDC 04/26/19; EGA 27 1/7 weeks presented to L&D from the office for evaluation of shortened cervix. She received care at [facility] since 13 weeks and co-managed by [facility] for Twin gestation (Di/Di), shortened cervix and Alpha Thalassemia carrier. She denied contractions, but cervix was 3/50/-3 in the office per CNM. Her cervical dilatation was arrested at 5/60/-3 on IV Magnesium sulfate, IV Ampicillin and she completed her 2nd dose of steroids, and currently lamont irregularly on Indocin 25mg Q6H. Patient reports: movement normal, no new complaints, no loss of fluid, no vaginal bleeding, no contractions Objective - Vital Signs Vital Signs: Vital Signs - 12hr 01/26/19 01/26/19 01/26/19 00:16 00:21 00:26 Pulse Rate 94 H 98 H 100 H Blood Pressure O2 Sat by Pulse 95 95 94 Oximetry 12/08/19 12/08/19 12/08/19 00:31 00:36 00:41 Pulse Rate 99 H 98 H 100 H Blood Pressure O2 Sat by Pulse 95 95 95 Oximetry 01/26/19 01/26/19 01/26/19 00:46 00:51 00:54 Pulse Rate 108 H 97 H 96 H Blood Pressure O2 Sat by Pulse 96 93 92 Oximetry 01/26/19 01/26/19 01/26/19 00:56 01:00 01:01 Pulse Rate 94 H 98 H 104 H Blood Pressure O2 Sat by Pulse 90 91 92 Oximetry 01/26/19 01/26/19 01/26/19 01:06 01:11 01:16 Pulse Rate 97 H 95 H 93 H Blood Pressure O2 Sat by Pulse 92 96 94 Oximetry 01/26/19 01/26/19 01/26/19 01:21 01:26 01:31 Pulse Rate 92 H 94 H 95 H Blood Pressure O2 Sat by Pulse 94 94 94 Oximetry 01/26/19 01/26/19 01/26/19 01:36 01:41 01:46 Pulse Rate 98 H 105 H 93 H Blood Pressure O2 Sat by Pulse 94 96 95 Oximetry 01/26/19 01/26/19 01/26/19 01:51 01:56 02:01 Pulse Rate 98 H 95 H 98 H Blood Pressure O2 Sat by Pulse 96 95 97 Oximetry 01/26/19 01/26/19 01/26/19 02:06 02:11 02:16 Pulse Rate 98 H 101 H 95 H Blood Pressure O2 Sat by Pulse 96 94 94 Oximetry 01/26/19 01/26/19 01/26/19 02:21 02:26 02:31 Pulse Rate 94 H 96 H 98 H Blood Pressure O2 Sat by Pulse 94 94 94 Oximetry 01/26/19 01/26/19 01/26/19 02:36 02:41 02:46 Pulse Rate 97 H 97 H 109 H Blood Pressure O2 Sat by Pulse 95 95 97 Oximetry 01/26/19 01/26/19 01/26/19 02:51 02:56 03:01 Pulse Rate 94 H 100 H 100 H Blood Pressure O2 Sat by Pulse 91 92 92 Oximetry 01/26/19 01/26/19 01/26/19 03:06 03:11 03:16 Pulse Rate 98 H 97 H 107 H Blood Pressure O2 Sat by Pulse 94 94 96 Oximetry 01/26/19 01/26/19 01/26/19 03:21 03:26 03:31 Pulse Rate 97 H 106 H 98 H Blood Pressure O2 Sat by Pulse 94 96 97 Oximetry 01/26/19 01/26/19 01/26/19 03:32 03:40 03:44 Pulse Rate 108 H 134 H Blood Pressure O2 Sat by Pulse 92 86 89 Oximetry 01/26/19 01/26/19 01/26/19 03:45 03:49 03:54 Pulse Rate 97 H 102 H 99 H Blood Pressure 89/48 O2 Sat by Pulse 97 96 Oximetry 01/26/19 01/26/19 01/26/19 03:59 04:04 04:09 Pulse Rate 97 H 99 H 94 H Blood Pressure O2 Sat by Pulse 96 97 97 Oximetry 01/26/19 01/26/19 01/26/19 04:14 04:19 04:24 Pulse Rate 97 H 101 H 94 H Blood Pressure 77/39 O2 Sat by Pulse 97 98 97 Oximetry 01/26/19 01/26/19 01/26/19 04:29 04:34 04:39 Pulse Rate 103 H 103 H 99 H Blood Pressure O2 Sat by Pulse 98 97 98 Oximetry 01/26/19 01/26/19 01/26/19 04:44 04:49 04:54 Pulse Rate 101 H 107 H 109 H Blood Pressure O2 Sat by Pulse 98 97 98 Oximetry 01/26/19 01/26/19 01/26/19 04:59 05:04 05:09 Pulse Rate 102 H 101 H 100 H Blood Pressure O2 Sat by Pulse 97 98 97 Oximetry 01/26/19 01/26/19 01/26/19 05:14 05:19 05:24 Pulse Rate 97 H 103 H 104 H Blood Pressure O2 Sat by Pulse 97 97 97 Oximetry 01/26/19 01/26/19 01/26/19 05:29 05:34 05:39 Pulse Rate 101 H 106 H 107 H Blood Pressure O2 Sat by Pulse 96 97 97 Oximetry 01/26/19 01/26/19 01/26/19 05:44 05:49 05:52 Pulse Rate 101 H 101 H 98 H Blood Pressure 94/50 O2 Sat by Pulse 96 97 Oximetry 01/26/19 01/26/19 01/26/19 05:54 05:59 06:04 Pulse Rate 97 H 98 H 99 H Blood Pressure O2 Sat by Pulse 97 96 94 Oximetry 01/26/19 01/26/19 01/26/19 06:14 06:19 06:24 Pulse Rate 99 H 102 H 95 H Blood Pressure O2 Sat by Pulse 94 94 93 Oximetry 01/26/19 01/26/19 01/26/19 06:25 06:29 06:34 Pulse Rate 102 H 100 H 103 H Blood Pressure O2 Sat by Pulse 92 94 94 Oximetry 01/26/19 01/26/19 01/26/19 06:39 06:44 06:49 Pulse Rate 100 H 110 H 101 H Blood Pressure O2 Sat by Pulse 94 97 94 Oximetry 01/26/19 01/26/19 01/26/19 06:54 06:59 07:00 Pulse Rate 96 H 98 H 95 H Blood Pressure O2 Sat by Pulse 91 93 92 Oximetry 01/26/19 01/26/19 01/26/19 07:04 07:09 07:14 Pulse Rate 111 H 107 H 100 H Blood Pressure O2 Sat by Pulse 96 96 96 Oximetry 01/26/19 01/26/19 01/26/19 07:19 07:24 07:29 Pulse Rate 109 H 102 H 108 H Blood Pressure O2 Sat by Pulse 96 97 97 Oximetry 01/26/19 01/26/19 01/26/19 07:33 07:34 07:39 Pulse Rate 107 H 104 H 101 H Blood Pressure 91/42 O2 Sat by Pulse 97 97 Oximetry 01/26/19 01/26/19 01/26/19 07:44 07:49 07:54 Pulse Rate 103 H 102 H 104 H Blood Pressure O2 Sat by Pulse 97 97 97 Oximetry 01/26/19 01/26/19 01/26/19 07:59 08:04 08:09 Pulse Rate 100 H 96 H 105 H Blood Pressure O2 Sat by Pulse 96 96 96 Oximetry 01/26/19 01/26/19 01/26/19 08:14 08:19 08:24 Pulse Rate 99 H 106 H 99 H Blood Pressure O2 Sat by Pulse 97 96 95 Oximetry 01/26/19 01/26/19 01/26/19 08:29 08:34 08:39 Pulse Rate 99 H 98 H 99 H Blood Pressure O2 Sat by Pulse 95 95 94 Oximetry 12/10/0701/26/19 01/26/19 08:44 08:49 08:54 Pulse Rate 101 H 106 H 108 H Blood Pressure O2 Sat by Pulse 94 97 96 Oximetry 01/26/19 01/26/19 01/26/19 08:59 09:04 09:09 Pulse Rate 102 H 107 H 109 H Blood Pressure O2 Sat by Pulse 96 96 97 Oximetry 01/26/19 01/26/19 01/26/19 09:14 09:19 09:24 Pulse Rate 110 H 116 H 112 H Blood Pressure O2 Sat by Pulse 97 96 97 Oximetry 01/26/19 01/26/19 01/26/19 09:29 09:34 09:39 Pulse Rate 112 H 106 H 116 H Blood Pressure O2 Sat by Pulse 96 96 97 Oximetry 01/26/19 01/26/19 01/26/19 09:44 09:49 09:54 Pulse Rate 118 H 109 H 109 H Blood Pressure O2 Sat by Pulse 96 96 96 Oximetry 01/26/19 01/26/19 01/26/19 09:59 10:04 10:09 Pulse Rate 124 H 114 H 111 H Blood Pressure O2 Sat by Pulse 97 97 97 Oximetry 01/26/19 01/26/19 01/26/19 10:14 10:19 10:24 Pulse Rate 109 H 111 H 106 H Blood Pressure O2 Sat by Pulse 97 97 97 Oximetry 01/26/19 01/26/19 01/26/19 10:29 10:34 10:39 Pulse Rate 110 H 109 H 113 H Blood Pressure O2 Sat by Pulse 98 97 98 Oximetry 01/26/19 01/26/19 01/26/19 10:45 10:50 11:00 Pulse Rate 119 H 114 H Blood Pressure O2 Sat by Pulse 98 98 81 L Oximetry 01/26/19 01/26/19 01/26/19 11:01 11:05 11:09 Pulse Rate 69 68 121 H Blood Pressure O2 Sat by Pulse 79 L 81 L 80 L Oximetry 01/26/19 01/26/19 01/26/19 11:10 11:16 11:21 Pulse Rate 112 H 116 H 72 Blood Pressure O2 Sat by Pulse 83 L 86 82 L Oximetry 01/26/19 01/26/19 01/26/19 11:22 11:27 11:32 Pulse Rate 74 117 H 109 H Blood Pressure O2 Sat by Pulse 80 L 97 97 Oximetry 01/26/19 01/26/19 01/26/19 11:37 11:42 11:47 Pulse Rate 106 H 106 H 107 H Blood Pressure O2 Sat by Pulse 97 97 96 Oximetry 01/26/19 01/26/19 01/26/19 11:52 11:57 12:02 Pulse Rate 104 H 108 H 109 H Blood Pressure O2 Sat by Pulse 95 95 94 Oximetry 01/26/19 12:07 Pulse Rate 105 H Blood Pressure O2 Sat by Pulse 94 Oximetry - Exam Breasts: deferred Abdomen: Present: normal appearance, soft Uterus: Present: normal FHR: category 1 Uterine Contraction Monitor Mode: External Uterine Contraction Pattern: Irregular Uterine Contraction Intensity: Mild - Labs Labs: Abnormal Labs 01/23/19 01/23/19 01/24/19 16:46 16:46 00:51 Hgb 10.0 L MCH 26 L RDW 16.1 H [place] % (Auto) 8.5 H Sodium 135 L Potassium 3.4 L Carbon Dioxide 19 L Creatinine 0.5 L Magnesium 5.50 H Albumin 3.8 L 01/24/19 01/24/19 01/24/19 06:06 11:55 19:53 Hgb MCH RDW [place] % (Auto) Sodium Potassium Carbon Dioxide Creatinine Magnesium 6.00 H 6.50 H 5.90 H Albumin 01/25/19 01/25/19 00:57 05:41 Hgb MCH RDW [place] % (Auto) Sodium Potassium Carbon Dioxide Creatinine Magnesium 6.00 H 6.30 H Albumin
[2019-01-26] MEDS: ACETAMINOPHEN 325 MG TAB PO PRN (13:48)
[2019-01-27] MEDS: LACTATED RINGERS 1,000 ML IV SCH ×2 (01:43→14:28)
[2019-01-27] MEDS: AMPICILLIN/NS 1 GM/50 ML 1 GM/50 ML BAG IV SCH (03:05)
[2019-01-27] MEDS: INDOMETHACIN 25 MG CAP PO SCH ×4 (03:08→19:00)
--- NOTE | 2019-01-27 11:16 | Progress Note ---
Assessment and Plan - Patient Problems (1) 26 weeks gestation of Onset Date: 01/23/19 Current Visit: Yes Status: Resolved (2) Twin gestation, dichorionic diamniotic Onset Date: 01/23/19 Current Visit: Yes Status: Acute Qualifiers: Trimester: third trimester Qualified Code(s): O30.043 - Twin , dichorionic/diamniotic, third trimester (3) Previous section complicating Onset Date: 01/23/19 Current Visit: Yes Status: Acute (4) Cervical shortening affecting in third trimester Onset Date: 01/23/19 Current Visit: Yes Status: Acute (5) 27 weeks gestation of Onset Date: 01/26/19 Current Visit: Yes Status: Acute Plan to address problem: A: IUP @ 27 2/7 weeks Twin gestation (Di/Di) - Breech/Transverse Previous C Section Shortened cervix Advanced cervical dilatation P: Continue with present management as per [facility] recommendations Will continue Indocin x 3 days S/P Magnesium sulfate S/P IM steroids and IV Ampicillin Appreciate NICU and [facility] consultation Will continue with conservative management and deliver by Repeat C Section if labor resumes Subjective - Subjective Date of service: 01/27/19 Principal diagnosis: IUP @ 27 2/7 weeks; Twin gestation; PTL Interval history: Pt is a 23yo BF EDC 04/26/19; EGA 27 2/7 weeks presented to L&D from the office for evaluation of shortened cervix. She received care at [facility] since 13 weeks and co-managed by [facility] for Twin gestation (Di/Di), shortened cervix and Alpha Thalassemia carrier. She denied contractions, but cervix was 3/50/-3 in the office per CNM. Her cervical dilatation was arrested at 5/60/-3 on IV Magnesium sulfate, IV Ampicillin and she completed her 2nd dose of steroids, and currently not lamont on Indocin 25mg Q6H. +FM. No bleeding or ROM. Patient reports: movement normal, no new complaints, no loss of fluid, no vaginal bleeding, no contractions Objective - Vital Signs Vital Signs: Vital Signs - 12hr 01/26/19 01/26/19 01/26/19 23:11 23:15 23:16 Temperature Pulse Rate 97 H 93 H 89 Respiratory Rate Blood Pressure Blood Pressure [Left] O2 Sat by Pulse 95 92 96 Oximetry 01/26/19 01/26/19 01/26/19 23:21 23:26 23:31 Temperature Pulse Rate 94 H 95 H 94 H Respiratory Rate Blood Pressure Blood Pressure [Left] O2 Sat by Pulse 95 94 94 Oximetry 01/26/19 01/26/19 01/26/19 23:36 23:41 23:46 Temperature Pulse Rate 95 H 92 H 99 H Respiratory Rate Blood Pressure Blood Pressure [Left] O2 Sat by Pulse 94 96 93 Oximetry 01/26/19 01/26/19 01/27/19 23:51 23:56 00:01 Temperature Pulse Rate 89 92 H 90 Respiratory Rate Blood Pressure Blood Pressure [Left] O2 Sat by Pulse 95 94 94 Oximetry 01/27/19 01/27/19 01/27/19 00:06 00:11 00:16 Temperature Pulse Rate 92 H 94 H 92 H Respiratory Rate Blood Pressure Blood Pressure [Left] O2 Sat by Pulse 96 96 95 Oximetry 01/27/19 01/27/19 01/27/19 00:21 00:26 00:31 Temperature Pulse Rate 107 H 103 H 96 H Respiratory Rate Blood Pressure Blood Pressure [Left] O2 Sat by Pulse 95 97 96 Oximetry 01/27/19 01/27/19 01/27/19 00:36 00:41 00:46 Temperature Pulse Rate 97 H 92 H 100 H Respiratory Rate Blood Pressure Blood Pressure [Left] O2 Sat by Pulse 96 95 96 Oximetry 01/27/19 01/27/19 01/27/19 00:51 00:56 01:01 Temperature Pulse Rate 95 H 101 H 100 H Respiratory Rate Blood Pressure Blood Pressure [Left] O2 Sat by Pulse 95 95 96 Oximetry 01/27/19 01/27/19 01/27/19 01:06 01:11 01:16 Temperature Pulse Rate 96 H 97 H 105 H Respiratory Rate Blood Pressure Blood Pressure [Left] O2 Sat by Pulse 94 94 97 Oximetry 01/27/19 01/27/19 01/27/19 01:19 01:24 01:27 Temperature Pulse Rate 100 H 73 187 H Respiratory Rate Blood Pressure Blood Pressure [Left] O2 Sat by Pulse 90 79 L 73 L Oximetry 01/27/19 01/27/19 01/27/19 01:32 01:37 01:42 Temperature Pulse Rate 90 93 H 87 Respiratory Rate Blood Pressure Blood Pressure [Left] O2 Sat by Pulse 97 96 96 Oximetry 01/27/19 01/27/19 01/27/19 01:47 01:52 01:57 Temperature Pulse Rate 91 H 92 H 92 H Respiratory Rate Blood Pressure Blood Pressure [Left] O2 Sat by Pulse 96 95 95 Oximetry 01/27/19 01/27/19 01/27/19 02:02 02:03 02:07 Temperature Pulse Rate 94 H 95 H 91 H Respiratory Rate Blood Pressure Blood Pressure [Left] O2 Sat by Pulse 93 91 96 Oximetry 01/27/19 01/27/19 01/27/19 02:12 02:17 02:22 Temperature Pulse Rate 96 H 95 H 94 H Respiratory Rate Blood Pressure Blood Pressure [Left] O2 Sat by Pulse 95 96 95 Oximetry 01/27/19 01/27/19 01/27/19 02:27 02:32 02:37 Temperature Pulse Rate 97 H 98 H 95 H Respiratory Rate Blood Pressure Blood Pressure [Left] O2 Sat by Pulse 95 95 95 Oximetry 01/27/19 01/27/19 01/27/19 02:42 02:47 02:52 Temperature Pulse Rate 98 H 92 H 93 H Respiratory Rate Blood Pressure Blood Pressure [Left] O2 Sat by Pulse 95 95 95 Oximetry 01/27/19 01/27/19 01/27/19 02:57 03:02 03:05 Temperature 98.0 F Pulse Rate 93 H 96 H 98 H Respiratory 18 Rate Blood Pressure Blood Pressure 96/55 [Left] O2 Sat by Pulse 94 96 95 Oximetry 01/27/19 01/27/19 01/27/19 03:06 03:07 03:12 Temperature Pulse Rate 100 H 97 H 97 H Respiratory Rate Blood Pressure 87/47 Blood Pressure [Left] O2 Sat by Pulse 94 96 Oximetry 01/27/19 01/27/19 01/27/19 03:17 03:22 03:27 Temperature Pulse Rate 95 H 93 H 91 H Respiratory Rate Blood Pressure Blood Pressure [Left] O2 Sat by Pulse 95 94 95 Oximetry 01/27/19 01/27/19 01/27/19 03:32 03:37 03:42 Temperature Pulse Rate 96 H 88 95 H Respiratory Rate Blood Pressure Blood Pressure [Left] O2 Sat by Pulse 93 95 94 Oximetry 01/27/19 01/27/19 01/27/19 03:47 03:52 03:57 Temperature Pulse Rate 94 H 96 H 95 H Respiratory Rate Blood Pressure Blood Pressure [Left] O2 Sat by Pulse 95 94 89 Oximetry 01/27/19 01/27/19 01/27/19 04:02 04:04 04:07 Temperature Pulse Rate 93 H 90 83 Respiratory Rate Blood Pressure Blood Pressure [Left] O2 Sat by Pulse 96 92 98 Oximetry 01/27/19 01/27/19 01/27/19 04:10 04:12 04:16 Temperature Pulse Rate 88 92 H 96 H Respiratory Rate Blood Pressure Blood Pressure [Left] O2 Sat by Pulse 92 98 89 Oximetry 01/27/19 01/27/19 01/27/19 04:17 04:22 04:27 Temperature Pulse Rate 87 90 98 H Respiratory Rate Blood Pressure Blood Pressure [Left] O2 Sat by Pulse 95 95 97 Oximetry 01/27/19 01/27/19 01/27/19 04:32 04:37 04:42 Temperature Pulse Rate 98 H 97 H 87 Respiratory Rate Blood Pressure Blood Pressure [Left] O2 Sat by Pulse 97 96 95 Oximetry 01/27/19 01/27/19 01/27/19 04:47 04:52 04:57 Temperature Pulse Rate 96 H 92 H 92 H Respiratory Rate Blood Pressure Blood Pressure [Left] O2 Sat by Pulse 95 95 96 Oximetry 01/27/19 01/27/19 01/27/19 05:02 05:07 05:12 Temperature Pulse Rate 99 H 104 H 100 H Respiratory Rate Blood Pressure Blood Pressure [Left] O2 Sat by Pulse 95 98 96 Oximetry 01/27/19 01/27/19 01/27/19 05:16 05:18 05:22 Temperature Pulse Rate 105 H Respiratory Rate Blood Pressure Blood Pressure [Left] O2 Sat by Pulse 85 73 L 75 L Oximetry 01/27/19 01/27/19 01/27/19 05:34 05:35 05:39 Temperature Pulse Rate 83 Respiratory Rate Blood Pressure Blood Pressure [Left] O2 Sat by Pulse 88 90 81 L Oximetry 01/27/19 01/27/19 01/27/19 05:43 05:44 05:49 Temperature Pulse Rate 188 H 165 H Respiratory Rate Blood Pressure Blood Pressure [Left] O2 Sat by Pulse 83 L 88 78 L Oximetry 01/27/19 01/27/19 01/27/19 05:50 05:55 05:57 Temperature 98.0 F Pulse Rate 72 90 Respiratory 18 Rate Blood Pressure Blood Pressure 109/63 [Left] O2 Sat by Pulse 81 L 79 L 94 Oximetry 01/27/19 01/27/19 01/27/19 05:58 06:03 06:08 Temperature Pulse Rate 95 H 94 H 88 Respiratory Rate Blood Pressure 109/63 Blood Pressure [Left] O2 Sat by Pulse 94 95 95 Oximetry 01/27/19 01/27/19 01/27/19 06:13 06:18 06:23 Temperature Pulse Rate 88 85 90 Respiratory Rate Blood Pressure Blood Pressure [Left] O2 Sat by Pulse 94 93 94 Oximetry 01/27/19 01/27/19 01/27/19 06:28 06:29 06:33 Temperature Pulse Rate 94 H 94 H 91 H Respiratory Rate Blood Pressure Blood Pressure [Left] O2 Sat by Pulse 93 91 94 Oximetry 01/27/19 01/27/19 01/27/19 06:38 06:43 06:48 Temperature Pulse Rate 100 H 99 H 105 H Respiratory Rate Blood Pressure Blood Pressure [Left] O2 Sat by Pulse 96 95 96 Oximetry 01/27/19 01/27/19 01/27/19 06:53 06:58 07:03 Temperature Pulse Rate 92 H 98 H 96 H Respiratory Rate Blood Pressure Blood Pressure [Left] O2 Sat by Pulse 94 96 95 Oximetry 01/27/19 01/27/19 01/27/19 07:08 07:13 07:18 Temperature Pulse Rate 97 H 98 H 98 H Respiratory Rate Blood Pressure Blood Pressure [Left] O2 Sat by Pulse 96 95 96 Oximetry 01/27/19 01/27/19 01/27/19 07:23 07:24 07:33 Temperature Pulse Rate 95 H 78 Respiratory Rate Blood Pressure Blood Pressure [Left] O2 Sat by Pulse 96 80 L 84 Oximetry 01/27/19 01/27/19 01/27/19 07:34 07:40 07:45 Temperature Pulse Rate 195 H 80 104 H Respiratory Rate Blood Pressure Blood Pressure [Left] O2 Sat by Pulse 86 88 98 Oximetry 01/27/19 01/27/19 01/27/19 07:50 07:55 08:00 Temperature Pulse Rate 111 H 115 H 105 H Respiratory Rate Blood Pressure Blood Pressure [Left] O2 Sat by Pulse 100 99 98 Oximetry 01/27/19 01/27/19 01/27/19 08:05 08:06 08:10 Temperature Pulse Rate 110 H 106 H 100 H Respiratory Rate Blood Pressure 102/59 Blood Pressure [Left] O2 Sat by Pulse 97 97 Oximetry 01/27/19 01/27/19 01/27/19 08:14 08:15 08:20 Temperature 98.1 F Pulse Rate 106 H 106 H Respiratory Rate Blood Pressure Blood Pressure [Left] O2 Sat by Pulse 97 97 Oximetry 01/27/19 01/27/19 01/27/19 08:25 08:30 08:35 Temperature Pulse Rate 107 H 108 H 113 H Respiratory Rate Blood Pressure Blood Pressure [Left] O2 Sat by Pulse 97 97 97 Oximetry 01/27/19 01/27/19 01/27/19 08:40 08:45 08:50 Temperature Pulse Rate 116 H 106 H 109 H Respiratory Rate Blood Pressure Blood Pressure [Left] O2 Sat by Pulse 97 96 97 Oximetry 01/27/19 01/27/19 01/27/19 08:55 09:00 09:05 Temperature Pulse Rate 112 H 110 H 112 H Respiratory Rate Blood Pressure Blood Pressure [Left] O2 Sat by Pulse 96 97 97 Oximetry 01/27/19 01/27/19 01/27/19 09:10 09:15 09:20 Temperature Pulse Rate 115 H 102 H 105 H Respiratory Rate Blood Pressure Blood Pressure [Left] O2 Sat by Pulse 97 96 95 Oximetry 01/27/19 01/27/19 01/27/19 09:25 09:30 09:35 Temperature Pulse Rate 101 H 100 H 100 H Respiratory Rate Blood Pressure Blood Pressure [Left] O2 Sat by Pulse 94 95 95 Oximetry 01/27/19 01/27/19 01/27/19 09:40 09:45 09:51 Temperature Pulse Rate 100 H 117 H Respiratory Rate Blood Pressure Blood Pressure [Left] O2 Sat by Pulse 95 100 90 Oximetry 01/27/19 01/27/19 01/27/19 09:56 10:01 10:06 Temperature Pulse Rate 103 H 101 H 101 H Respiratory Rate Blood Pressure Blood Pressure [Left] O2 Sat by Pulse 94 95 96 Oximetry 01/27/19 01/27/19 01/27/19 10:11 10:16 10:21 Temperature Pulse Rate 102 H 102 H 106 H Respiratory Rate Blood Pressure Blood Pressure [Left] O2 Sat by Pulse 95 96 96 Oximetry 01/27/19 01/27/1919 10:26 10:31 10:36 Temperature Pulse Rate 101 H 106 H 102 H Respiratory Rate Blood Pressure Blood Pressure [Left] O2 Sat by Pulse 96 94 94 Oximetry 01/27/19 01/27/19 01/27/19 10:37 10:41 10:43 Temperature Pulse Rate 108 H 107 H 106 H Respiratory Rate Blood Pressure Blood Pressure [Left] O2 Sat by Pulse 92 96 90 Oximetry 01/27/19 01/27/19 01/27/19 10:46 10:51 10:56 Temperature Pulse Rate 104 H 107 H 108 H Respiratory Rate Blood Pressure Blood Pressure [Left] O2 Sat by Pulse 96 94 96 Oximetry 01/27/19 01/27/19 11:01 11:06 Temperature Pulse Rate 101 H 105 H Respiratory Rate Blood Pressure Blood Pressure [Left] O2 Sat by Pulse 95 99 Oximetry - Exam Abdomen: Present: normal appearance, soft Uterus: Present: normal FHR: category 1 Uterine Contraction Monitor Mode: External Uterine Contraction Pattern: Absent - Labs Labs: Abnormal Labs 01/23/19 01/23/19 01/24/19 16:46 16:46 00:51 Hgb 10.0 L MCH 26 L RDW 16.1 H [place] % (Auto) 8.5 H Sodium 135 L Potassium 3.4 L Carbon Dioxide 19 L Creatinine 0.5 L Magnesium 5.50 H Albumin 3.8 L 01/24/19 01/24/19 01/24/19 06:06 11:55 19:53 Hgb MCH RDW [place] % (Auto) Sodium Potassium Carbon Dioxide Creatinine Magnesium 6.00 H 6.50 H 5.90 H Albumin 01/25/19 01/25/19 00:57 05:41 Hgb MCH RDW [place] % (Auto) Sodium Potassium Carbon Dioxide Creatinine Magnesium 6.00 H 6.30 H Albumin
[2019-01-27] MEDS: PRENATAL VIT27-FE FUMARATE-FOLIC ACID VIT TAB PO SCH ×2 (12:47→21:29)
--- NOTE | 2019-01-27 14:00 | Consultation ---
History of Present Illness Consult date: 01/27/19 Requesting physician: YEYO WESTON History of present illness: Ms. Jett is a 23yo, , at 27 2/7 weeks with MAILE of 04/26/19. She is followed outpatient by [facility] secondary to Yanira twin , PTL/D hx, and Cervical shortening with current . She was recently seen in [facility] office on 01/22/19 for twin and cervical length surv eillance. Cervical length was 1.17cm by transvaginal ultrasound assessment and reassuring surveillance appreciated during assessment. 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 - Obstetrical History : 4 Past History Past Medical History: no pertinent history 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 - Obstetrical History : 4 Medications and Allergies Allergies Allergy/AdvReac Type Severity Reaction Status Date / Time No Known Allergies Allergy Verified 12/20/18 21:51 Home Medications Medication Instructions Recorded Confirmed Last Taken Type Vit-Fe Fumar-FA [ 1 tab PO Q24H 12/20/18 01/23/19 01/22/19 History Vitamin] Progesterone, Micronized 200 mg PO QPM 01/26/19 01/26/19 01/22/19 18:00 History [Progesterone] Active Meds: Active Medications Acetaminophen (Tylenol) 650 mg PO Q4H PRN PRN Reason: Pain MILD(1-3)/Fever >100.5/LAN[place]ORD Last Admin: 01/26/19 13:48 Dose: 650 mg Documented by: Diphenhydramine HCl (Benadryl) 25 mg PO Q6H PRN PRN Reason: Itching Docusate Sodium (Colace) 100 mg PO Q12H PRN PRN Reason: Constipation Lactated Ringer's (Lactated Ringers) 1,000 mls @ 125 mls/hr IV DIRECT TRICIA Last Admin: 01/27/19 01:43 Dose: 125 mls/hr Documented by: Ampicillin Sodium (Ampicillin/Ns 1 Gm/50 Ml) 1 gm in 50 mls @ 100 mls/hr IV Q6H TRICIA; Protocol Last Admin: 01/27/19 03:05 Dose: 100 mls/hr Documented by: Indomethacin (Indocin) 25 mg PO Q6HR TRICIA Last Admin: 01/27/19 08:22 Dose: 25 mg Documented by: Multivitamins/Iron/Calcium ( Vitamin) 1 each PO QDAY [facility] Last Admin: 01/27/19 12:47 Dose: 1 each Documented by: Ondansetron HCl (Zofran) 4 mg IV Q6H PRN PRN Reason: Nausea And Vomiting Senna/Docusate Sodium (Senokot S) 2 tab PO Q12H PRN PRN Reason: Laxative Effect Simethicone (Mylicon) 80 mg PO Q6H PRN PRN Reason: Gas pain - Vital Signs Vital signs: Vital Signs Pulse BP 103 H 119/67 01/23/19 14:33 01/23/19 14:33 Temp Pulse Resp BP Pulse Ox 98.1 F 35 L 18 102/59 79 L 01/27/19 08:14 01/27/19 13:46 01/27/19 05:57 01/27/19 08:06 01/27/19 13:46 Results Result Diagrams: 01/23/19 16:46 01/23/19 16:46 All other labs normal. Assessment and Plan Assessment and Plan A- Yanira IUP 27 2/7 weeks (MAILE 04/26/19) VSS BPP and ultrasound performed inpatient- Twin A BPP 8/8 Breech Twin B BPP 8/8 Transverse Cervical shortening- 1.17cm ( by [facility] assessment on 01/22/19) PTL/D hx Magnesium Sulfate previously given Ampicillin ordered Steroid Complete Positive Trichomonas in November, DALTON performed at primary OB today P- Continue with plan of care Magnesium Sulfate for Neuro-protection given Steroid complete Continuous monitoring, toco for contractions May try Indocin 50 mg load then 25 mg q 6 hours x 3 days after completed may administer Procardia 10mg TID NICU consult Consider delivery with distress/nonreassuring behavior. 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
[2019-01-28] MEDS: INDOMETHACIN 25 MG CAP PO SCH ×4 (00:03→17:56)
[2019-01-28] MEDS: LACTATED RINGERS 1,000 ML IV SCH ×2 (06:11→12:15)
--- NOTE | 2019-01-28 11:02 | Ultrasound Report ---
ULTRASOUND OB LIMITED HISTORY: well being, evaluate heart tones TECHNIQUE: Transabdominal ultrasound. FINDINGS: A twin gestation is identified. Twin A is in transverse position with head to the maternal left. Heart rate measures 150 bpm. Twin B is in transverse position with head to the maternal right. Heart rate measures 159 bpm. IMPRESSION: Twin gestation as described above. Signer Name: Wally Ribera Jr, MD Signed: 01/28/2019 10:58 AM Workstation Name: [id number]
--- NOTE | 2019-01-28 11:04 | Ultrasound Report ---
ULTRASOUND BIOPHYSICAL PROFILE INDICATION: IUP @ 27 weeks; Twins. Technique: Transabdominal imaging. FINDINGS: Twin A: heart rate is 150 beats per minute. breathing movement = 2 Gross body movement = 2 tone = 2 Qualitative amniotic fluid volume = 2 Twin B heart rate is 159 beats per minute. breathing movement = 2 Gross body movement = 2 tone = 2 Qualitative amniotic fluid volume = 2 IMPRESSION: Twin gestation. Biophysical profile score is 8/8 in both fetuses. Signer Name: Wally Ribera Jr, MD Signed: 01/28/2019 11:00 AM Workstation Name: [id number]
[2019-01-28] MEDS: PRENATAL VIT27-FE FUMARATE-FOLIC ACID VIT TAB PO SCH (12:13)
[2019-01-28] MEDS: ACETAMINOPHEN 325 MG TAB PO PRN (15:26)
--- NOTE | 2019-01-28 15:30 | Progress Note ---
Assessment and Plan - Patient Problems (1) 27 weeks gestation of Onset Date: 01/26/19 Current Visit: Yes Status: Acute Plan to address problem: A: IUP @ 27 3/7 weeks Twin gestation (Di/Di) - Breech/Transverse Previous C Section Shortened cervix Advanced cervical dilatation P: Continue with present management as per [facility] recommendations Will begin Procardia 10mg Q8H after discontinue Indocin after 3 days S/P Magnesium sulfate S/P IM steroids and IV Ampicillin Appreciate NICU and [facility] consultation Will continue with conservative management and deliver by Repeat C Section if labor resumes (2) 26 weeks gestation of Onset Date: 01/23/19 Current Visit: Yes Status: Resolved (3) Twin gestation, dichorionic diamniotic Onset Date: 01/23/19 Current Visit: Yes Status: Acute Qualifiers: Trimester: third trimester Qualified Code(s): O30.043 - Twin , dichorionic/diamniotic, third trimester (4) Previous section complicating Onset Date: 01/23/19 Current Visit: Yes Status: Acute (5) Cervical shortening affecting in third trimester Onset Date: 01/23/19 Current Visit: Yes Status: Acute Subjective - Subjective Date of service: 01/28/19 Principal diagnosis: IUP @ 27 3/7 weeks; Twin gestation; PTL Interval history: Pt is a 23yo BF EDC 04/26/19; EGA 27 3/7 weeks presented to L&D from the office for evaluation of shortened cervix. She received care at [facility] since 13 weeks and co-managed by [facility] for Twin gestation (Di/Di), shortened cervix and Alpha Thalassemia carrier. She denied contractions, but cervix was 3/50/-3 in the office per CNM. Her cervical dilatation was arrested at 5/60/-3 on IV Magnesium sulfate, IV Ampicillin and she completed her 2nd dose of steroids, and currently not lamont on Indocin 25mg Q6H. +FM. No bleeding or ROM. BPP 8/8 x 2 today. Patient reports: movement normal, no new complaints, no loss of fluid, no vaginal bleeding, no contractions Objective - Vital Signs Vital Signs: Vital Signs - 12hr 01/28/19 01/28/19 01/28/19 04:09 05:57 08:57 Temperature 98.6 F Pulse Rate 98 H 94 H 108 H Respiratory 16 Rate Blood Pressure 101/56 101/54 Blood Pressure [Left] Blood Pressure 100/60 [Right] O2 Sat by Pulse 96 Oximetry 01/28/19 01/28/19 01/28/19 08:58 10:49 10:54 Temperature 98.2 F Pulse Rate 108 H 108 H 109 H Respiratory 12 Rate Blood Pressure Blood Pressure 101/54 [Left] Blood Pressure [Right] O2 Sat by Pulse 97 97 Oximetry 01/28/19 01/28/19 01/28/19 10:59 11:04 11:09 Temperature Pulse Rate 106 H 105 H 103 H Respiratory Rate Blood Pressure Blood Pressure [Left] Blood Pressure [Right] O2 Sat by Pulse 98 97 97 Oximetry 01/28/19 01/28/19 01/28/19 11:14 11:19 11:24 Temperature Pulse Rate 111 H 116 H 103 H Respiratory Rate Blood Pressure Blood Pressure [Left] Blood Pressure [Right] O2 Sat by Pulse 98 98 97 Oximetry 01/28/19 01/28/19 01/28/19 11:29 11:34 11:39 Temperature Pulse Rate 110 H 112 H 105 H Respiratory Rate Blood Pressure Blood Pressure [Left] Blood Pressure [Right] O2 Sat by Pulse 97 97 97 Oximetry 01/28/19 01/28/19 01/28/19 11:44 11:49 11:54 Temperature Pulse Rate 105 H 111 H 107 H Respiratory Rate Blood Pressure Blood Pressure [Left] Blood Pressure [Right] O2 Sat by Pulse 97 97 98 Oximetry 01/28/19 01/28/19 01/28/19 12:02 13:06 13:15 Temperature Pulse Rate 65 77 175 H Respiratory Rate Blood Pressure Blood Pressure [Left] Blood Pressure [Right] O2 Sat by Pulse 73 L 85 93 Oximetry 01/28/19 01/28/19 01/28/19 13:20 13:25 13:30 Temperature Pulse Rate 110 H 103 H 104 H Respiratory Rate Blood Pressure Blood Pressure [Left] Blood Pressure [Right] O2 Sat by Pulse 98 97 97 Oximetry 01/28/19 01/28/19 01/28/19 13:35 13:40 13:45 Temperature Pulse Rate 100 H 100 H 100 H Respiratory Rate Blood Pressure Blood Pressure [Left] Blood Pressure [Right] O2 Sat by Pulse 98 97 98 Oximetry 01/28/19 01/28/19 01/28/19 13:50 13:55 14:00 Temperature Pulse Rate 102 H 114 H 107 H Respiratory Rate Blood Pressure Blood Pressure [Left] Blood Pressure [Right] O2 Sat by Pulse 99 99 98 Oximetry 01/28/19 01/28/19 01/28/19 14:05 14:10 14:15 Temperature Pulse Rate 110 H 102 H 102 H Respiratory Rate Blood Pressure Blood Pressure [Left] Blood Pressure [Right] O2 Sat by Pulse 98 99 100 Oximetry 01/28/19 01/28/19 01/28/19 14:20 14:25 14:30 Temperature Pulse Rate 103 H 100 H 105 H Respiratory Rate Blood Pressure Blood Pressure [Left] Blood Pressure [Right] O2 Sat by Pulse 98 98 98 Oximetry 01/28/19 01/28/19 01/28/19 14:35 14:40 14:45 Temperature Pulse Rate 98 H 101 H 99 H Respiratory Rate Blood Pressure Blood Pressure [Left] Blood Pressure [Right] O2 Sat by Pulse 98 99 98 Oximetry 01/28/19 01/28/19 01/28/19 14:50 14:55 15:00 Temperature Pulse Rate 100 H 99 H 95 H Respiratory Rate Blood Pressure Blood Pressure [Left] Blood Pressure [Right] O2 Sat by Pulse 98 98 98 Oximetry 01/28/19 01/28/19 01/28/19 15:03 15:05 15:10 Temperature 98.8 F Pulse Rate 104 H 98 H 116 H Respiratory 14 Rate Blood Pressure 108/65 Blood Pressure 108/65 [Left] Blood Pressure [Right] O2 Sat by Pulse 98 98 Oximetry - Exam Breasts: deferred Abdomen: Present: normal appearance, soft Uterus: Present: normal FHR: category 1 Uterine Contraction Monitor Mode: External Uterine Contraction Pattern: Absent - Labs Labs: Abnormal Labs 01/23/19 01/23/19 01/24/19 16:46 16:46 00:51 Hgb 10.0 L MCH 26 L RDW 16.1 H [place] % (Auto) 8.5 H Sodium 135 L Potassium 3.4 L Carbon Dioxide 19 L Creatinine 0.5 L Magnesium 5.50 H Albumin 3.8 L 01/24/19 01/24/19 01/24/19 06:06 11:55 19:53 Hgb MCH RDW [place] % (Auto) Sodium Potassium Carbon Dioxide Creatinine Magnesium 6.00 H 6.50 H 5.90 H Albumin 01/25/19 01/25/19 00:57 05:41 Hgb MCH RDW [place] % (Auto) Sodium Potassium Carbon Dioxide Creatinine Magnesium 6.00 H 6.30 H Albumin - Results US- obstetric: report reviewed (BPP 09/26 x 2 01/28/19)
[2019-01-28] MEDS ORDERED: hydrALAZINE 20 MG/1 ML INJ ONE (16:39)
[2019-01-29] MEDS: INDOMETHACIN 25 MG CAP PO SCH ×2 (02:21→07:50)
--- NOTE | 2019-01-29 04:23 | Ultrasound Report ---
US OB limited INDICATION: Evaluate heart tones. COMPARISON: OB ultrasound from 01/28/2019. FINDINGS: A live twin is again seen. Each fetus is in breech presentation. Twin A has a heart rate of 1 53 bpm. Twin B has a heart rate of 158 bpm. No other significant sonographic abnormality is seen. IMPRESSION: Live twin as above. Signer Name: Remi Navarro MD Signed: 01/29/2019 4:19 AM Workstation Name: [id number]
[2019-01-29] MEDS: LACTATED RINGERS 1,000 ML IV SCH (05:42)
[2019-01-29] MEDS: PRENATAL VIT27-FE FUMARATE-FOLIC ACID VIT TAB PO SCH (10:04)
--- NOTE | 2019-01-29 11:37 | Progress Note ---
Assessment and Plan - Patient Problems (1) 27 weeks gestation of Onset Date: 01/26/19 Current Visit: Yes Status: Acute Plan to address problem: A: IUP @ 27 4/7 weeks Twin gestation (Di/Di) - Breech/Transverse Previous C Section Shortened cervix Advanced cervical dilatation P: Continue with present management as per [facility] recommendations Continue Procardia 10mg Q8H S/P Indocin for 3 days S/P Magnesium sulfate S/P IM steroids and IV Ampicillin Appreciate NICU and [facility] consultation Will continue with conservative management and deliver by Repeat C Section if labor resumes (2) 26 weeks gestation of Onset Date: 01/23/19 Current Visit: Yes Status: Resolved (3) Twin gestation, dichorionic diamniotic Onset Date: 01/23/19 Current Visit: Yes Status: Acute Qualifiers: Trimester: third trimester Qualified Code(s): O30.043 - Twin , dichorionic/diamniotic, third trimester (4) Previous section complicating Onset Date: 01/23/19 Current Visit: Yes Status: Acute (5) Cervical shortening affecting in third trimester Onset Date: 01/23/19 Current Visit: Yes Status: Acute Subjective - Subjective Date of service: 01/29/19 Principal diagnosis: IUP @ 27 4/7 weeks; Twin gestation; PTL Interval history: Pt is a 23yo BF EDC 04/26/19; EGA 27 4/7 weeks presented to L&D from the office for evaluation of shortened cervix. She received care at [facility] since 13 weeks and co-managed by [facility] for Twin gestation (Di/Di), shortened cervix and Alpha Thalassemia carrier. She denied contractions, but cervix was 3/50/-3 in the office per CNM. Her cervical dilatation was arrested at 5/60/-3 on IV Magnesium sulfate, IV Ampicillin and she completed her 2nd dose of steroids, she completed her regimen of 25mg Q6H x 3 days, and currently on Procardia 10mg Q8H. +FM. No bleeding or ROM. BPP 8/8 x 2 yesterday. Patient reports: new complaints (yeast infection), movement normal, no loss of fluid, no vaginal bleeding, no contractions Objective - Vital Signs Vital Signs: Vital Signs - 12hr 01/29/19 01/29/19 01/29/19 00:14 00:15 00:23 Temperature Pulse Rate 40 L 144 H Respiratory Rate Blood Pressure Blood Pressure [Right] O2 Sat by Pulse 92 88 81 L Oximetry 01/29/19 01/29/19 01/29/19 00:28 04:03 04:06 Temperature 98.1 F Pulse Rate 99 H 95 H Respiratory 18 Rate Blood Pressure 95/53 Blood Pressure [Right] O2 Sat by Pulse 73 L Oximetry 01/29/19 07:49 Temperature 98.3 F Pulse Rate 98 H Respiratory 16 Rate Blood Pressure 91/52 Blood Pressure 91/52 [Right] O2 Sat by Pulse Oximetry - Exam Breasts: deferred Abdomen: Present: normal appearance, soft Uterus: Present: normal FHR: category 1 Uterine Contraction Monitor Mode: External Cervical Dilatation: 4 Cervical Effacement Percentage: 50 station: -3 Uterine Contraction Pattern: Absent - Labs Labs: Abnormal Labs 01/23/19 01/23/19 01/24/19 16:46 16:46 00:51 Hgb 10.0 L MCH 26 L RDW 16.1 H Stone % (Auto) 8.5 H Sodium 135 L Potassium 3.4 L Carbon Dioxide 19 L Creatinine 0.5 L Magnesium 5.50 H Albumin 3.8 L 01/24/19 01/24/19 01/24/19 06:06 11:55 19:53 Hgb MCH RDW [place] % (Auto) Sodium Potassium Carbon Dioxide Creatinine Magnesium 6.00 H 6.50 H 5.90 H Albumin 01/25/19 01/25/19 00:57 05:41 Hgb MCH RDW [place] % (Auto) Sodium Potassium Carbon Dioxide Creatinine Magnesium 6.00 H 6.30 H Albumin - Results US- obstetric: report reviewed (BPP 09/26 x 2 01/28/19)
[2019-01-29] MEDS ORDERED: FLUCONAZOLE 100 MG TAB PO SCH (12:00)
--- NOTE | 2019-01-29 17:43 | Ultrasound Report ---
OB Ultrasound HISTORY: IUP @ 27 weeks; growth. TECHNIQUE: Grayscale and color Doppler imaging performed. COMPARISON: Limited OB ultrasound from today and 01/28 FINDINGS: There are viable twin gestations. Twin A: Transverse presentation with heart rate of 153 bpm. Overall EGA is 26 weeks and 3 days by ult rasound with clinical gestational age of 27 weeks and 4 days which is within approximately 1 week con gruence. Placenta is positioned posteriorly. There is an amniotic fluid pocket measuring 2.5 cm. Twin B: Cephalic presentation with heart rate of 146 bpm. Overall EGA is 27 weeks and 4 days which ma tches the clinical gestational age. There is a amniotic fluid pocket measuring 4.6 cm. Placenta is se en along the fundal margin. There is cervical funneling when fundal pressure is applied, measuring up to 1 cm in maximal dimensio n. Funneling length is 5.7 cm IMPRESSION: 1. Viable twin gestations as above. 2. Cervical funneling as above with fundal pressure is applied. Signer Name: Spencer Ling MD Signed: 01/29/2019 5:38 PM Workstation Name: [id number]
[2019-01-29] MEDS: NIFEdipine*For Tocolysis only* 10 MG CAPSULE PO SCH (18:56)
--- NOTE | 2019-01-30 09:15 | Progress Note ---
Assessment and Plan - Patient Problems (1) 27 weeks gestation of Onset Date: 01/26/19 Current Visit: Yes Status: Acute Plan to address problem: A: IUP @ 27 5/7 weeks Twin gestation (Di/Di) - Transverse/Cephalic Previous C Section Shortened cervix - stable Advanced cervical dilatation - stable P: Continue with present management as per [facility] recommendations Continue Procardia 10mg Q8H S/P Indocin for 3 days S/P Magnesium sulfate S/P IM steroids and IV Ampicillin Appreciate NICU and [facility] consultation Will continue with conservative management and deliver by Repeat C Section if labor resumes (2) 26 weeks gestation of Onset Date: 01/23/19 Current Visit: Yes Status: Resolved (3) Twin gestation, dichorionic diamniotic Onset Date: 01/23/19 Current Visit: Yes Status: Acute Qualifiers: Trimester: third trimester Qualified Code(s): O30.043 - Twin , dichorionic/diamniotic, third trimester (4) Previous section complicating Onset Date: 01/23/19 Current Visit: Yes Status: Acute (5) Cervical shortening affecting in third trimester Onset Date: 01/23/19 Current Visit: Yes Status: Acute Subjective - Subjective Date of service: 01/30/19 Principal diagnosis: IUP @ 27 5/7 weeks; Twin gestation; PTL Interval history: Pt is a 23yo BF EDC 04/26/19; EGA 27 5/7 weeks presented to L&D from the office for evaluation of shortened cervix. She received care at [facility] since 13 weeks and co-managed by [facility] for Twin gestation (Di/Di), shortened cervix and Alpha Thalassemia carrier. She denied contractions, but cervix was 3/50/-3 in the office per CNM. Her cervical dilatation was arrested at 5/60/-3 on IV Magnesium sulfate, IV Ampicillin and she completed her 2nd dose of steroids, she completed her regimen of 25mg Q6H x 3 days, and currently on Procardia 10mg Q8H. +FM. No bleeding or ROM. BPP 8/8 x 2 . Patient reports: new complaints (yeast infection), movement normal, no los s of fluid, no vaginal bleeding, no contractions Objective - Vital Signs Vital Signs: Vital Signs - 12hr 01/30/19 01/30/19 07:38 07:40 Temperature 98.0 F Pulse Rate 109 H 100 H Respiratory 16 Rate Blood Pressure 91/52 Blood Pressure 91/52 [Right] O2 Sat by Pulse 98 92 Oximetry - Exam Abdomen: Present: normal appearance, soft Uterus: Present: normal FHR: category 1 Uterine Contraction Monitor Mode: External Uterine Contraction Pattern: Absent - Labs Labs: Abnormal Labs 01/23/19 01/23/19 01/24/19 16:46 16:46 00:51 Hgb 10.0 L MCH 26 L RDW 16.1 H Drew % (Auto) 8.5 H Sodium 135 L Potassium 3.4 L Carbon Dioxide 19 L Creatinine 0.5 L Magnesium 5.50 H Albumin 3.8 L 01/24/19 01/24/19 01/24/19 06:06 11:55 19:53 Hgb MCH RDW Drew % (Auto) Sodium Potassium Carbon Dioxide Creatinine Magnesium 6.00 H 6.50 H 5.90 H Albumin 01/25/19 01/25/19 00:57 05:41 Hgb MCH RDW Drew % (Auto) Sodium Potassium Carbon Dioxide Creatinine Magnesium 6.00 H 6.30 H Albumin - Results US- obstetric: report reviewed (Twin A - Transverse, 934gms; Twin B - Cephalic 1077gms)
[2019-01-30] MEDS: PRENATAL VIT27-FE FUMARATE-FOLIC ACID VIT TAB PO SCH (11:04)
--- NOTE | 2019-01-30 12:51 | Progress Note ---
Assessment and Plan A- Yanira IUP 27.5 weeks (MAILE 04/26/19) VSS BPP- 09/26 for fetus A and B Ultrasound- Fetus A 934g,MVP 2.5cm, Fetus B 1077g, MVP 4.6cm Cervical shortening PTL/D hx- arrest at 5cm Complained of contractions overnight and this morning- resolved since initiation of Procardia Denies current PTL symptoms, leaking of fluid, and bleeding Procardia 10mg TID S/P Magnesium Sulfate, Indocin x 3 days, and Betamethasone x 2 P- Continue with plan of care of conservative management. EFW Q2-3 weeks, BPPs twice weekly ( Sunday's and 's) Continuous monitoring, toco for contractions Continue tocolysis as indicated with Procardia Consider delivery with distress/nonreassuring behavior. If continues to dilate would proceed to Repeat C/S if stable With additional questions or concerns, please contact SURYA VIZCAINO welding production supervisor. Thank you. Subjective - Subjective Date of service: 01/30/19 Principal diagnosis: IUP @ 27 5/7 weeks; Twin gestation; PTL Patient reports: new complaints (yeast infection), movement normal, no loss of fluid, no vaginal bleeding, no contractions Objective - Vital Signs Vital Signs: Vital Signs - 12hr 01/30/19 01/30/19 01/30/19 07:38 07:40 11:47 Temperature 98.0 F Pulse Rate 109 H 100 H 113 H Respiratory 16 Rate Blood Pressure 91/52 88/50 Blood Pressure 91/52 [Right] O2 Sat by Pulse 98 92 Oximetry 01/30/19 11:48 Temperature 98.4 F Pulse Rate 113 H Respiratory 16 Rate Blood Pressure Blood Pressure 88/50 [Right] O2 Sat by Pulse Oximetry - Exam Breasts: deferred Cardiovascular: Regular rate, Normal S1, Normal S2 Lungs: Clear to auscultation, Normal air movement Abdomen: Present: normal appearance, soft, other (gravid) - Labs Labs: Abnormal Labs 01/23/19 01/23/19 01/24/19 16:46 16:46 00:51 Hgb 10.0 L MCH 26 L RDW 16.1 H [place] % (Auto) 8.5 H Sodium 135 L Potassium 3.4 L Carbon Dioxide 19 L Creatinine 0.5 L Magnesium 5.50 H Albumin 3.8 L 01/24/19 01/24/19 01/24/19 06:06 11:55 19:53 Hgb MCH RDW [place] % (Auto) Sodium Potassium Carbon Dioxide Creatinine Magnesium 6.00 H 6.50 H 5.90 H Albumin 01/25/19 01/25/19 00:57 05:41 Hgb MCH RDW [place] % (Auto) Sodium Potassium Carbon Dioxide Creatinine Magnesium 6.00 H 6.30 H Albumin
[2019-01-30] MEDS: NIFEdipine*For Tocolysis only* 10 MG CAPSULE PO SCH ×2 (13:55→22:07)
[2019-01-31] MEDS: NIFEdipine*For Tocolysis only* 10 MG CAPSULE PO SCH ×3 (06:57→22:35)
[2019-01-31] MEDS: LACTATED RINGERS 1,000 ML IV SCH ×3 (06:58→22:36)
[2019-01-31] MEDS ORDERED: fentaNYL 100 MCG/2 ML INJ IV ONE (07:00)
[2019-01-31] MEDS: PRENATAL VIT27-FE FUMARATE-FOLIC ACID VIT TAB PO SCH (09:59)
--- NOTE | 2019-01-31 12:44 | Progress Note ---
Assessment and Plan - Patient Problems (1) 27 weeks gestation of Onset Date: 01/26/19 Current Visit: Yes Status: Acute Plan to address problem: A: IUP @ 27 6/7 weeks Twin gestation (Di/Di) - Transverse/Cephalic Previous C Section Shortened cervix - stable Advanced cervical dilatation - stable P: Continue with present management as per [facility] recommendations Continue Procardia 10mg Q8H S/P Indocin for 3 days S/P Magnesium sulfate S/P IM steroids and IV Ampicillin Appreciate NICU and [facility] consultation Will continue with conservative management and deliver by Repeat C Section if labor resumes (2) 26 weeks gestation of Onset Date: 01/23/19 Current Visit: Yes Status: Resolved (3) Twin gestation, dichorionic diamniotic Onset Date: 01/23/19 Current Visit: Yes Status: Acute Qualifiers: Trimester: third trimester Qualified Code(s): O30.043 - Twin , dichorionic/diamniotic, third trimester (4) Previous section complicating Onset Date: 01/23/19 Current Visit: Yes Status: Acute (5) Cervical shortening affecting in third trimester Onset Date: 01/23/19 Current Visit: Yes Status: Acute Subjective - Subjective Date of service: 01/31/19 Principal diagnosis: IUP @ 27 6/7 weeks; Twin gestation; PTL Interval history: Pt is a 23yo BF EDC 04/26/19; EGA 27 6/7 weeks presented to L&D from the office for evaluation of shortened cervix. She received care at [facility] since 13 weeks and co-managed by [facility] for Twin gestation (Di/Di), shortened cervix and Alpha Thalassemia carrier. She denied contractions, but cervix was 3/50/-3 in the office per CNM. Her cervical dilatation was arrested at 5/60/-3 on IV Magnesium sulfate, IV Ampicillin and she completed her 2nd dose of steroids, she completed her regimen of 25mg Q6H x 3 days, and currently on Procardia 10mg Q8H. +FM. No bleeding or ROM. BPP 8/8 x 2. She had some contractions last night, now resolved. Patient reports: new complaints (yeast infection), movement normal, no loss of fluid, no vaginal bleeding, no contractions Objective - Vital Signs Vital Signs: Vital Signs - 12hr 01/31/19 01/31/1919 06:56 06:58 06:59 Temperature Pulse Rate 96 H 98 H Respiratory 18 Rate Blood Pressure 101/59 99/55 Blood Pressure [Right] 01/31/19 07:12 Temperature 98.1 F Pulse Rate 101 H Respiratory 16 Rate Blood Pressure 96/52 Blood Pressure 96/52 [Right] - Exam Abdomen: Present: normal appearance, soft Uterus: Present: normal FHR: category 1 Uterine Contraction Monitor Mode: External Uterine Contraction Pattern: Absent - Labs Labs: Abnormal Labs 01/23/19 01/23/19 01/24/19 16:46 16:46 00:51 Hgb 10.0 L MCH 26 L RDW 16.1 H [place] % (Auto) 8.5 H Sodium 135 L Potassium 3.4 L Carbon Dioxide 19 L Creatinine 0.5 L Magnesium 5.50 H Albumin 3.8 L 01/24/19 01/24/19 01/24/19 06:06 11:55 19:53 Hgb MCH RDW [place] % (Auto) Sodium Potassium Carbon Dioxide Creatinine Magnesium 6.00 H 6.50 H 5.90 H Albumin 01/25/19 01/25/19 00:57 05:41 Hgb MCH RDW [place] % (Auto) Sodium Potassium Carbon Dioxide Creatinine Magnesium 6.00 H 6.30 H Albumin - Results US- obstetric: report reviewed
--- NOTE | 2019-01-31 14:26 | Progress Note ---
Subjective - Subjective Date of service: 01/31/19 Principal diagnosis: IUP @ 27 6/7 weeks; Twin gestation; PTL Interval history: assuming care of this patient from Dr Blair agree with plan of care to date conservative management delivery by c/section for maternal/ indication maternal/ status reassuring overall Sonia VIZCAINO Patient reports: new complaints (yeast infection), movement normal, no loss of fluid, no vaginal bleeding, no contractions Objective - Vital Signs Vital Signs: Vital Signs - 12hr 01/31/19 01/31/19 01/31/19 06:56 06:58 06:59 Temperature Pulse Rate 96 H 98 H Respiratory 18 Rate Blood Pressure 101/59 99/55 Blood Pressure [Right] 01/31/19 07:12 Temperature 98.1 F Pulse Rate 101 H Respiratory 16 Rate Blood Pressure 96/52 Blood Pressure 96/52 [Right] - Labs Labs: Abnormal Labs 01/23/19 01/23/19 01/24/19 16:46 16:46 00:51 Hgb 10.0 L MCH 26 L RDW 16.1 H Grand % (Auto) 8.5 H Sodium 135 L Potassium 3.4 L Carbon Dioxide 19 L Creatinine 0.5 L Magnesium 5.50 H Albumin 3.8 L 01/24/19 01/24/19 01/24/19 06:06 11:55 19:53 Hgb MCH RDW [place] % (Auto) Sodium Potassium Carbon Dioxide Creatinine Magnesium 6.00 H 6.50 H 5.90 H Albumin 01/25/19 01/25/19 00:57 05:41 Hgb MCH RDW [place] % (Auto) Sodium Potassium Carbon Dioxide Creatinine Magnesium 6.00 H 6.30 H Albumin
[2019-02-01 06:34] LABS: Hematocrit 28.2 % (30.3-42.9); Mean Corpuscular HGB Conc 32 % (30-34); Mean Corpuscular Volume 83 fl (79-97); Platelet Count 285 K/mm3 (140-440); Red Blood Count 3.38 M/mm3 (3.65-5.03)
[2019-02-01] MEDS: NIFEdipine*For Tocolysis only* 10 MG CAPSULE PO SCH ×3 (06:36→18:05)
[2019-02-01 06:59] LABS: Alanine Aminotransferase 19 units/L (7-56); Albumin 3.6 g/dL (3.9-5); BUN/Creatinine Ratio 12; Blood Urea Nitrogen 6 mg/dL (7-17); Calcium 8.9 mg/dL (8.4-10.2); Hemolysis Index 19
--- NOTE | 2019-02-01 12:45 | Progress Note ---
Subjective - Subjective Date of service: 02/01/19 Principal diagnosis: IUP @ 27 6/7 weeks; Twin gestation; PTL Interval history: Patient doing well no complaints FHT reactivex2, appropriate for gestational age Not in labor plan for conservative management at this time Delivery for maternal/ indication Augustin Ferrara MD Patient reports: new complaints (yeast infection), movement normal, no loss of fluid, no vaginal bleeding, no contractions Objective - Vital Signs Vital Signs: Vital Signs - 12hr 02/01/19 02/01/19 02/01/19 03:22 06:21 12:02 Temperature 98.4 F Pulse Rate 109 H 103 H 106 H Respiratory 18 Rate Blood Pressure 91/53 102/57 101/58 - Labs Labs: Abnormal Labs 01/23/19 01/23/19 01/24/19 16:46 16:46 00:51 RBC Hgb 10.0 L Hct MCH 26 L RDW 16.1 H Patrick % (Auto) 8.5 H Sodium 135 L Potassium 3.4 L Carbon Dioxide 19 L BUN Creatinine 0.5 L Magnesium 5.50 H Albumin 3.8 L 01/24/19 01/24/19 01/24/19 06:06 11:55 19:53 RBC Hgb Hct MCH RDW Patrick % (Auto) Sodium Potassium Carbon Dioxide BUN Creatinine Magnesium 6.00 H 6.50 H 5.90 H Albumin 01/25/19 01/25/19 02/01/19 00:57 05:41 05:52 RBC 3.38 L Hgb 9.0 L Hct 28.2 L MCH 27 L RDW 16.0 H Patrick % (Auto) Sodium Potassium Carbon Dioxide BUN Creatinine Magnesium 6.00 H 6.30 H Albumin 02/01/19 05:52 RBC Hgb Hct MCH RDW Patrick % (Auto) Sodium 136 L Potassium Carbon Dioxide 20 L BUN 6 L Creatinine 0.5 L Magnesium Albumin 3.6 L Laboratory Results - last 24 hr 02/01/19 02/01/19 05:52 05:52 WBC 10.0 RBC 3.38 L Hgb 9.0 L Hct 28.2 L MCV 83 MCH 27 L MCHC 32 RDW 16.0 H Plt Count 285 Sodium 136 L Potassium 4.0 Chloride 99.5 Carbon Dioxide 20 L Anion Gap 21 BUN 6 L Creatinine 0.5 L Estimated GFR > 60 BUN/Creatinine Ratio 12 Glucose 76 Calcium 8.9 Total Bilirubin < 0.20 AST 18 ALT 19 Alkaline Phosphatase 64 Total Protein 7.0 Albumin 3.6 L Albumin/Globulin Ratio 1.1
[2019-02-02] MEDS: NIFEdipine*For Tocolysis only* 10 MG CAPSULE PO SCH (02:53)
[2019-02-02] MEDS ORDERED: BUTORPHANOL 2 MG/1 ML INJ IV PRN (05:19)
[2019-02-02] MEDS ORDERED: BUTORPHANOL 2 MG/1 ML INJ ONE (05:26)
[2019-02-02] MEDS: LACTATED RINGERS 1,000 ML IV SCH ×2 (05:27→06:06)
[2019-02-02] MEDS ORDERED: BICITRA ORAL LIQD 30ML PO ONE (05:57)
[2019-02-02] MEDS ORDERED: METOCLOPRAMIDE 10 MG/2 ML INJ IV ONE (05:57)
[2019-02-02] MEDS ORDERED: FAMOTIDINE 20 MG/2 ML INJ IV ONE (05:57)
--- NOTE | 2019-02-02 05:57 | Progress Note ---
Subjective - Subjective Date of service: 02/02/19 Principal diagnosis: IUP @ 27 6/7 weeks; Twin gestation; PTL Interval history: Patient in labor Nikki Q2 minutes BBOW baby A breech plan for urgent operative delivery infomred consent obtained Sonia VIZCAINO Patient reports: new complaints (yeast infection), movement normal, no loss of fluid, no vaginal bleeding, no contractions Objective - Vital Signs Vital Signs: Vital Signs - 12hr 02/01/19 02/01/19 02/02/19 21:02 23:57 00:00 Temperature 98.4 F Pulse Rate 109 H 110 H 109 H Respiratory 18 Rate Blood Pressure 95/50 Blood Pressure 99/52 [Left] O2 Sat by Pulse 100 96 Oximetry 02/02/19 02/02/19 02/02/19 00:01 04:29 04:30 Temperature 98.8 F Pulse Rate 106 H 100 H 96 H Respiratory 18 Rate Blood Pressure 99/52 91/53 Blood Pressure 91/53 [Left] O2 Sat by Pulse 97 Oximetry 02/02/19 02/02/19 02/02/19 05:29 05:34 05:39 Temperature Pulse Rate 91 H 111 H 120 H Respiratory Rate Blood Pressure Blood Pressure [Left] O2 Sat by Pulse 98 98 100 Oximetry 02/02/19 02/02/19 05:44 05:49 Temperature Pulse Rate 118 H 116 H Respiratory Rate Blood Pressure Blood Pressure [Left] O2 Sat by Pulse 100 100 Oximetry - Labs Labs: Abnormal Labs 01/23/19 01/23/19 01/24/19 16:46 16:46 00:51 RBC Hgb 10.0 L Hct MCH 26 L RDW 16.1 H [place] % (Auto) 8.5 H Sodium 135 L Potassium 3.4 L Carbon Dioxide 19 L BUN Creatinine 0.5 L Magnesium 5.50 H Albumin 3.8 L 01/24/19 01/24/19 01/24/19 06:06 11:55 19:53 RBC Hgb Hct MCH RDW [place] % (Auto) Sodium Potassium Carbon Dioxide BUN Creatinine Magnesium 6.00 H 6.50 H 5.90 H Albumin 01/25/19 01/25/19 02/01/19 00:57 05:41 05:52 RBC 3.38 L Hgb 9.0 L Hct 28.2 L MCH 27 L RDW 16.0 H [place] % (Auto) Sodium Potassium Carbon Dioxide BUN Creatinine Magnesium 6.00 H 6.30 H Albumin 02/01/19 05:52 RBC Hgb Hct MCH RDW [place] % (Auto) Sodium 136 L Potassium Carbon Dioxide 20 L BUN 6 L Creatinine 0.5 L Magnesium Albumin 3.6 L Laboratory Results - last 24 hr 02/01/19 02/01/19 05:52 05:52 WBC 10.0 RBC 3.38 L Hgb 9.0 L Hct 28.2 L MCV 83 MCH 27 L MCHC 32 RDW 16.0 H Plt Count 285 Sodium 136 L Potassium 4.0 Chloride 99.5 Carbon Dioxide 20 L Anion Gap 21 BUN 6 L Creatinine 0.5 L Estimated GFR > 60 BUN/Creatinine Ratio 12 Glucose 76 Calcium 8.9 Total Bilirubin < 0.20 AST 18 ALT 19 Alkaline Phosphatase 64 Total Protein 7.0 Albumin 3.6 L Albumin/Globulin Ratio 1.1
[2019-02-02] MEDS ORDERED: ceFAZolin/Water 2 GM/20 ML 2 GM/20 ML SYRINGE IV NR (06:00)
[2019-02-02] MEDS ORDERED: LACTATED RINGERS 1,000 ML IV SCH (06:00)
[2019-02-02] MEDS ORDERED: OXYTOCIN 20 UNIT/1000ML DRIP 20 UNITS/1,000 ML BAG IV SCH ×2 (06:00→09:00)
[2019-02-02] MEDS ORDERED: SODIUM CHLORIDE 0.9% 500 ML 500 ML IV ONE (06:00)
[2019-02-02] MEDS ORDERED: PROPOFOL 200 MG/20 ML VIAL IV ONE (06:23)
[2019-02-02] MEDS ORDERED: KETAMINE/STERILE WATER 50 MG/ML SYRINGE ONE (06:23)
[2019-02-02] MEDS ORDERED: WATER FOR IRRIG STERILE 1,500 ML BOTTLE IR ONE (06:35)
[2019-02-02] MEDS ORDERED: SODIUM CHLORIDE 0.9% IRR 1,500 ML BOTTLE IR ONE (06:35)
[2019-02-02] MEDS ORDERED: DEXTROSE 50% IN WATER (25GM) 50 ML SYRINGE IV ONE (06:50)
[2019-02-02] MEDS ORDERED: dexAMETHasone 20 MG/5 ML VIAL ONE (06:56)
[2019-02-02] MEDS ORDERED: DEXMEDETOMIDINE 200 MCG/2 ML VIAL IV ONE (06:56)
[2019-02-02] MEDS ORDERED: ONDANSETRON 4 MG/2 ML INJ ONE (06:56)
[2019-02-02] MEDS ORDERED: ROCURONIUM 50 MG/5 ML INJ IV ONE (06:56)
[2019-02-02] MEDS ORDERED: GLYCOPYRROLATE 0.4 MG/2 ML INJ ONE (06:57)
[2019-02-02] MEDS ORDERED: NEOSTIGMINE 10MG/10 ML INJ MDV ONE (06:57)
[2019-02-02] MEDS ORDERED: SODIUM CHLORIDE 0.9% 100 ML ONE (07:39)
--- NOTE | 2019-02-02 08:30 | Procedure Note ---
OB Delivery Note - Delivery Date of Delivery: 02/02/19 Surgeon: HÉCTOR ACHARYA Estimated blood loss: other (600ml) - Section Preop diagnosis: nonreassuring FHR tracing, other (twin IUP, baby A breech labor) Postop diagnosis: other (probable placenta abruption) section procedure: primary low transverse Disposition: PACU Complications: other ( of baby B) Narrative: Preoperative diagnosis: IUP at 28+0/7 weeks, labor, twin gestation Baby A breech presentation Baby B transverse back up, Previous c/sectionx1 Postoperative diagnosis: same, probable placental abruption Procedure: Repeat Low transverse section via pfannenstiel incision, internal version of baby B to breech for delivery Surgeon: Dr Héctor Acharya Anesthesia: GET IV Fluids: 1500ml Urine output 200ml EBL 600ml Complications: of baby B Drains: [place] to gravity Findings: Intact uterus, normal tubes and ovaries bilaterally. Baby A female weight 900gms 3/5/9. of Baby B female weight not available. I was called at 05:17 for patient with occasional contractions and pain. Due to extreme prematurity and desire for conservative management I ordered Stadol 2mg IVPx1 dose and IV fluid bolus of NS. At that time it was reported that FHT were ~150bpm x2 and appropriate and reactive for gestational age. I received a second call at 05:41 after IV fluids and pain meds given indicating that patient was still in pain and that there was a change in baseline of Baby B to 120bpm. I was in-house and I presented to the room immediately. Upon entering the room I checked the cervix and she was complete for a 28 week gestation, baby B confirmed breech at bedside with portable US done by myself. I called for an urgent C/Section. Informed consent was obtained. She was taken to the OR at 06:08. She was placed in the dorsal supine position with a leftward tilt. She was prepped and draped in a sterile fashion. NICU was in the process of bringing into the room appropriate equipment and once the NICU team was assembled and a first count was taken-a time out was verified at 06:30. She underwent GET without complication. The skin incision was made sharply at 06:31, taken down to the fascia which was incised in the midline and extended laterally bluntly. The superior and inferior aspect of the fascial incision was taken down bluntly and the abdomen entered sharply with Metzenbaum scissors and extended laterally bluntly.The Bladder blade was inserted. The vesicouterine incision was made sharply with the Metzenbaum scissors and extended laterally sharply. The bladder blade was reinserted. The uterine incision was made sharply with the scalpel and extended laterally bluntly. Baby A was delivered in breech presentation atraumatically at 06:32. The cord was clamped and cut and baby A handed to waiting NICU staff. Baby B was noted to be transverse back up and via internal uterine version was delivered breech presentation at 06:35. Cord was clamped and cut and baby handed to waiting NICU staff with no heartbeat at delivery. The placentas delivered spontaneously at delivery with abruption suspected. The uterus was cleared of all clots and debris. The uterus was exteriorized and a second pass with a clean wet lap was made to assure the uterus was clear. The uterine incision was suture ligated in four layers with 0-Vicryl and the vesicouterine peritoneum closed with 0-Vicryl in the usual fashion. The peritoneum closed with 3-0 vicryl, the abdominal muscles approximated with 3-0 vicryl and the fascia closed with 0- vicryl The subcuticular structures closed with 3-0 vicryl and the skin closed with suzanne. A pressure dressing was applied. All sponge, needle and instrument counts correctx2. Mom stable to PACU. Baby A to NICU. Placenta to Pathology. EBL 600ml. Dr Héctor Acharya - Infant A Infant Gender: Female
--- NOTE | 2019-02-02 08:44 | Anesthesia Consultation ---
Anesthesia Consult and Med Hx Date of service: 02/02/19 - Airway Anesthetic Teeth Evaluation: Good ROM Head & Neck: Adequate Mental/Hyoid Distance: Adequate Mallampati Class: Class II Intubation Access Assessment: Probably Good - Pulmonary Exam CTA: Yes - Cardiac Exam Cardiac Exam: RRR - Pre-Operative Health Status ASA Pre-Surgery Classification: ASA3, Emergency Proposed Anesthetic Plan: General Nerve Block: TAP - Pulmonary Hx Smoking: No Hx Asthma: No Hx Respiratory Symptoms: No SOB: No COPD: No Home Oxygen Therapy: No Hx Pneumonia: No Hx Sleep Apnea: No - Cardiovascular System Hx Hypertension: No Hx Coronary Artery Disease: No Hx Heart Attack/AMI: No Hx Angina: No Hx Percutaneous Transluminal Coronary Angioplasty (PTCA): No Hx Cardia Arrhythmia: No Hx Pacemaker: No Hx Internal Defibrillator: No Hx Valvular Heart Disease: No Hx Heart Murmur: No Hx Peripheral Vascular Disease: No - Central Nervous System Hx Neuromuscular Disorder: No Hx Seizures: No CVA: No Hx Back Pain: No Hx Psychiatric Problems: No - Gastrointestinal Hx Ulcer: No Hx Gastroesophageal Reflux Disease: No - Endocrine Hx Renal Disease: No Hx End Stage Renal Disease: No Hx Cirrhosis: No Hx Liver Disease: No Hx Insulin Dependent Diabetes: No Hx Non-Insulin Dependent Diabetes: No Hx Thyroid Disease: No Hx Hypothyroidism: No Hx Hyperthyroidism: No - Hematic Hx Anemia: Yes (ALPHA THALASSEMIA CARRIER) Hx Sickle Cell Disease: No - Other Systems Hx Alcohol Use: No Hx Substance Use: No Hx Cancer: No Hx Obesity: Yes (BMI 35.2) - Additional Comments Anesthesia Medical History Comments: Abruption bleeding risk
[2019-02-02] MEDS ORDERED: NalbUPHINE 10 MG/1 ML INJ IV PRN (08:45)
--- NOTE | 2019-02-02 08:45 | Post Anesthesia Evaluation ---
- Post Anesthesia Evaluation Patient Participated: Yes Airway Patent: Yes Stable Respiratory Function: Yes Nausea/Vomiting: No Temp > 96.8F: Yes Pain Manageable: Yes Adequeate Hydration: Yes Anesthesia Complications: No Block Receding Appropriately: Yes
--- NOTE | 2019-02-02 08:45 | Anesthesia Day of Surgery ---
Anesthesia Day of Surgery - Day of Surgery Patient Examined: Yes Patient H&P Reviewed: Yes Patient is NPO: Yes
[2019-02-02] MEDS ORDERED: NALOXONE 0.4 MG/1 ML INJ IV PRN (08:51)
[2019-02-02] MEDS ORDERED: SENNOSIDES 8.6 MG TAB PO PRN (08:51)
[2019-02-02] MEDS ORDERED: LANOLIN/ZINC/DIMETHICONE (LANSINOH) 7 GM TP PRN (08:51)
[2019-02-02] MEDS ORDERED: PROMETHAZINE 25 MG RECT SUPP PR PRN (08:51)
[2019-02-02] MEDS ORDERED: MORPHINE 2 MG/1 ML INJ IV PRN (08:51)
[2019-02-02] MEDS ORDERED: MORPHINE 4 MG/1 ML INJ IV PRN (08:51)
[2019-02-02] MEDS ORDERED: WITCH HAZEL/ GLYCERIN PAD TP PRN (08:51)
[2019-02-02] MEDS ORDERED: MAGNESIUM HYDROXIDE (MOM) ORAL LIQD UDC PO PRN (08:51)
[2019-02-02] MEDS ORDERED: IBUPROFEN 800 MG TAB PO PRN (08:51)
[2019-02-02] MEDS ORDERED: ACETAMINOPHEN 500 MG TAB PO SCH (09:00)
--- NOTE | 2019-02-02 09:25 | Event Note ---
Date: 02/02/19 Called to delivery of a 28 weeker, di-di twin at 0610. Twin B was noted to have FHR tracing change in baseline prior to being in the OR. Twin B was delivered in breech presentation at 0635. Baby had no heartbeat, pale, and limp at delivery. Abruption suspected. Baby was dried, stimulated, and placed on transwarmer. Deep suctioned, nyla-puff/mask PPV 20/7 was immediately started. At 1MOL, baby had no respiratory effort and no heartbeat. At 2MOL, 3.0ETT inserted by RT and secured at 7cm. Remained unchanged. At 2MOL, I initiated chest compressions. No chest rise, no heart beat, and remained pale and limp. Continued to resume chest compression. At 6MOL, epinephrine was given via ETT x1, compression continued/ with neopuff/ETT breaths. 2nd dose of epinephrine was given via ETT. I inserted UVC at 11MOL, blood return verified, and line flushed. Continued to provide chest compression with neopuff/ETT breaths 30/9. 10ml/kg NS bolus given. 3 additional epi. was given via UVC. No improvement. Dr. Oconnor on phone and enroute. Reintubated by RT with 3.0ETT at 24MOL.Slight color changed noted on CO2 detector. No chest rise noted. Compression continued. Changed to bag/mask in hope of chest rise but no changes noted. At 26MOl, a suspected large left pneumothorax noted with transilumination. At 30MOL, I needle aspirated with 25 gauge butterfly at 4th intercoastal space in the mid axillary line. Pulled back ~260ml of air. 2 additional epi was given via UVC. Chest compression and bag/mask breaths continued throughout, with no change. At 39MOL, Dr. Oconnor was at bedside and she reevaluate the baby. At 42MOL, Elvin determined all resuscitative efforts was provided. No respiratory efforts, no HR, pale, and limp. FOB updated updated right outside of OR room by Dr. Oconnor. Apgars were 0.
[2019-02-02 10:53] LABS: Hematocrit 27.7 % (30.3-42.9); Hemoglobin 8.9 gm/dl (10.1-14.3); Mean Corpuscular HGB Conc 32 % (30-34); Mean Corpuscular Volume 83 fl (79-97); Platelet Count 270 K/mm3 (140-440); Red Blood Count 3.33 M/mm3 (3.65-5.03); Red Cell Distribution Width 16.3 % (13.2-15.2)
[2019-02-02 12:38] LABS: Band Neutrophils # (Manual) 0.4 K/mm3; Basophils % (Manual) 0 % (0.0-1.8); Eosinophils % (Manual) 0 % (0.0-4.3); Total Cells Counted 100
[2019-02-02 12:39] LABS: Tear Drop Cells Few
[2019-02-02 12:40] LABS: Platelet Estimate Consistent w Auto
[2019-02-02] MEDS: KETOROLAC 30 MG/1 ML INJ IV SCH ×2 (13:49→21:15)
[2019-02-02 21:56] LABS: Hematocrit 26.2 % (30.3-42.9); Hemoglobin 8.4 gm/dl (10.1-14.3)
[2019-02-02] MEDS ORDERED: D5W/LACTATED RINGERS 1,000 ML IV SCH (22:00)
[2019-02-03] MEDS: KETOROLAC 30 MG/1 ML INJ IV SCH ×2 (04:49→06:10)
[2019-02-03] MEDS: DOCUSATE SODIUM 100 MG CAP PO PRN ×2 (04:58→18:07)
[2019-02-03 05:59] LABS: Basophils % (Auto) 0.1 % (0.0-1.8); Eosinophils % (Auto) 0.1 % (0.0-4.3); Hematocrit 21.5 % (30.3-42.9); Lymphocytes # (Auto) 1.8 K/mm3 (1.2-5.4); Lymphocytes % (Auto) 10.7 % (13.4-35.0); Mean Corpuscular HGB Conc 32 % (30-34); Mean Corpuscular Volume 83 fl (79-97); Monocytes # (Auto) 1.4 K/mm3 (0.0-0.8); Monocytes % (Auto) 8.3 % (0.0-7.3); Platelet Count 244 K/mm3 (140-440); Red Cell Distribution Width 16.3 % (13.2-15.2)
--- NOTE | 2019-02-03 10:31 | Progress Note ---
Assessment and Plan A: /postop day 1 S/P low transverse section. Heart murmur. Anemia. Grief process. P: Hospitalist consult. Social service/grief counselor consult. Advance diet as tolerated. Iron supplementation. Repeat H&H. Repeat blood pressure. Consulted with Dr. Dee re: this patient. Subjective - Subjective Date of service: 02/03/19 Principal diagnosis: day 1 S/P primary low transverse section Interval history: /postop day 1 S/P primary low transverse section. Loss of one of twins; pt. to see social media marketing manager/grief counselor. Patient is tearful today. Patient is voiding without difficulty, passing gas, ambulating well, tolerating liquids without nausea or vomiting. Patient denies headache, chest pain, cough, shortness of breath, leg pain, or heavy bleeding. Patient reports: appetite normal, voiding normally, pain well controlled, flatus, ambulating normally, no dizzy ambulation, no nauseated : in NICU, (one baby in NICU; other twin ) Objective - Vital Signs Latest vital signs: Vital Signs Temp Pulse Resp BP BP Pulse Ox 02/03/19 07:39 98 F 94 H 17 97/63 98 02/03/19 05:43 98.6 F 82 18 95/64 97 02/03/19 05:19 18 02/03/19 04:49 18 02/03/19 00:34 98.1 F 86 18 100/49 94 02/02/19 21:45 18 02/02/19 21:15 18 02/02/19 20:55 99.1 F 88 20 105/58 99 02/02/19 15:53 98.4 F 89 18 105/56 97 02/02/19 11:00 98.3 F 88 16 93/52 97 Intake and Output 02/02/19 02/03/19 02/03/19 23:59 07:59 15:59 Intake Total 360 540 260 Output Total 800 350 1 Balance -440 190 259 Intake: Oral 360 240 260 Intake, Free Water 300 Output: Urine 800 350 1 Indwelling Catheter 200 1 Void 600 350 Other: Total, Intake Amount 360 240 260 Total, Output Amount 200 350 1 - Exam Cardiovascular: Present: Regular rate, Normal S1, Normal S2, Other (murmur) Lungs: Present: Clear to auscultation Abdomen: Present: normal appearance, soft, normal bowel sounds. Absent: distention, tenderness, guarding, rigidity Uterus: Present: normal, firm, fundal height below umbilicus. Absent: bogginess, tenderness Extremities: Present: normal. Absent: tenderness, edema Incision: Present: normal, dry, intact, dressed - Labs Labs: Abnormal lab results 02/02/19 02/02/19 02/03/19 Range/Units 10:23 21:34 05:36 WBC 19.6 H 17.2 H (4.5-11.0) K/mm3 RBC 3.33 L 2.60 L (3.65-5.03) M/mm3 Hgb 8.9 L 8.4 L 7.0 L (10.1-14.3) gm/dl Hct 27.7 L 26.2 L 21.5 L (30.3-42.9) % MCH 27 L 27 L (28-32) pg RDW 16.3 H 16.3 H (13.2-15.2) % Lymph % (Auto) 10.7 L (13.4-35.0) % [place] % (Auto) 8.3 H (0.0-7.3) % [place] # 1.4 H (0.0-0.8) K/mm3 Seg Neutrophils % 80.8 H (40.0-70.0) % Seg Neuts % (Manual) 84.0 H (40.0-70.0) % Lymphocytes % (Manual) 8.0 L (13.4-35.0) % Seg Neutrophils # 13.9 H (1.8-7.7) K/mm3 Seg Neutrophils # Man 16.5 H (1.8-7.7) K/mm3
[2019-02-03 11:57] LABS: Hematocrit 23.2 % (30.3-42.9); Hemoglobin 7.4 gm/dl (10.1-14.3)
[2019-02-03] MEDS: oxyCODONE /ACETAMINOPHEN 5-325MG TAB PO PRN ×2 (13:10→22:34)
--- NOTE | 2019-02-03 16:41 | Post Anesthesia Evaluation ---
- Post Anesthesia Evaluation Patient Participated: Yes Airway Patent: Yes Stable Respiratory Function: Yes Nausea/Vomiting: No Temp > 96.8F: Yes Pain Manageable: Yes Adequeate Hydration: Yes Anesthesia Complications: No Other Comments: Patient denies questions or concerns regarding recent anesthetic. Ambulating and voinding without difficulty. Pain well controlled. Tolerating diet without nausea.
[2019-02-03] MEDS: FERROUS SULFATE 325 MG TAB PO SCH (18:07)
[2019-02-03] MEDS: PRENATAL VIT27-FE FUMARATE-FOLIC ACID VIT TAB PO SCH ×2 (18:07→18:08)
[2019-02-04] MEDS: KETOROLAC 30 MG/1 ML INJ IV SCH (04:48)
--- NOTE | 2019-02-04 11:39 | Progress Note ---
Assessment and Plan A: POD # 2 - stable P; Discharge home today F/U next week to get her suzanne out. Discharge instructions given Subjective - Subjective Date of service: 02/04/19 Principal diagnosis: day 2 S/P primary low transverse section Patient reports: appetite normal : in NICU Objective - Vital Signs Latest vital signs: Vital Signs Temp Pulse Resp BP BP Pulse Ox 02/04/19 07:45 98.1 F 104 H 18 107/66 02/04/19 04:05 98.4 F 66 18 101/74 02/04/19 04:00 98.8 F 71 18 108/81 02/04/19 00:00 98.7 F 74 18 114/72 02/03/19 22:33 116/53 02/03/19 19:30 98.7 F 77 18 104/56 02/03/19 18:53 93 H 107/58 02/03/19 13:10 20 02/03/19 12:30 99.2 F 109 H 17 119/69 100 Intake and Output 02/03/19 02/04/19 02/04/19 22:59 06:59 14:59 Intake Total 500 200 480 Balance 500 200 480 Intake: Oral 120 200 480 Intake, Free Water 380 Other: Total, Intake Amount 120 200 480 # Voids Indwelling Catheter 1 Void 1 1 - Exam Breasts: Present: deferred Cardiovascular: Present: Regular rate Lungs: Present: Clear to auscultation Abdomen: Present: soft Vulva: both: normal Uterus: Present: fundal height below umbilicus Extremities: Present: normal Deep Tendon Reflex Grade: Normal +2 Incision: Present: intact - Labs Labs: Abnormal lab results 02/03/19 Range/Units 11:42 Hgb 7.4 L (10.1-14.3) gm/dl Hct 23.2 L (30.3-42.9) %
--- NOTE | 2019-02-04 11:40 | Discharge Summary ---
Providers - Providers Date of Admission: 01/24/19 14:38 Date of discharge: 02/04/19 Attending physician: YEYO WESTON 01/23/19 14:09 Consult to Physician [CONS] Routine Comment: Consulting Provider: NAA BENITEZ Physician Instructions: Reason For Exam: IUP @ 26 5/7 weeks; Twin gestation Consult to Physician [CONS] Routine Comment: Consulting Provider: KATT QUIROZ Physician Instructions: Reason For Exam: IUP @ 26 5/7 weeks; Twin gestation; 02/03/19 10:26 Consult to Physician [CONS] Urgent Comment: Consulting Provider: GELACIO VELASQUEZ Physician Instructions: Reason For Exam: heart murmur; /postop day 1 02/03/19 10:32 Consult to Case Management [CONS] Urgent Services Needed at Discharge: Electric Refrigerator Preparer Notified:: No Additional Physician Instructions: Grief process; loss; delivery Primary care physician: YEYO WESTON Hospitalization Reason for admission: IUP - , labor Delivery: Procedure: section Incision: intact complications: none baby: female Hospital course: Had for labor of a 28wk twin gestation with A baby in Breech position. Baby B was upon delivery, probable placental abruption. Condition at discharge: Good Disposition: DC-01 TO HOME OR SELFCARE Plan - Provider Discharge Summary Activity: routine, no sex for 6 weeks, no strenuous exercise Diet: routine Instructions: routine Additional instructions: [] Smoking cessation referral if applicable(refer to patient education folder for contact #) [] Refer to [facility] Booklet Call your doctor immediately for: * Fever > 100.5 * Heavy vaginal bleeding ( >1 pad per hour) * Severe persistent headache * Shortness of breath * Reddened, hot, painful area to leg or breast * Drainage or odor from incision. * Keep incision clean and dry at all times and follow doctor's instructions regarding bathing/showering - Follow up plan Follow up: YEYO WESTON MD [Primary Care Provider] - 7 Days
[2019-02-04] MEDS ORDERED: INDOMETHACIN 25 MG CAP PO SCH (12:00)
[2019-02-04] MEDS: PRENATAL VIT27-FE FUMARATE-FOLIC ACID VIT TAB PO SCH (12:40)
[2019-02-04] MEDS: FERROUS SULFATE 325 MG TAB PO SCH (12:41)
[2019-02-04 12:45] VITALS: BP 116/70
== END 2019-02-04 14:50 | disposition home or self-care (01) | DRG 765 ==
LOC: TRG 13:49 → LD 13:50 → TRG 01-24 14:37 → LD 01-24 14:38 → OB 02-02 11:01
PROVIDERS: ADMIT Obstetrics & Gynecology; ATTEND Obstetrics & Gynecology
PROC: 10D00Z1 Extraction of Products of Conception, Low, Open Approach (ICD-10-PCS; principal; 2019-02-02)
PROC: 10S07ZZ Reposition Products of Conception, Via Natural or Artificial Opening (ICD-10-PCS; 2019-02-02)
DX: O60.12X1 Preterm labor second trimester with preterm delivery second trimester, fetus 1 (principal); O45.93 Premature separation of placenta, unspecified, third trimester; O45.92 Premature separation of placenta, unspecified, second trimester; O76 Abnormality in fetal heart rate and rhythm complicating labor and delivery; O60.12X2 Preterm labor second trimester with preterm delivery second trimester, fetus 2; O26.872 Cervical shortening, second trimester; O34.211 Maternal care for low transverse scar from previous cesarean delivery; O32.1XX1 Maternal care for breech presentation, fetus 1; O32.1XX2 Maternal care for breech presentation, fetus 2; O99.214 Obesity complicating childbirth; O30.042 Twin pregnancy, dichorionic/diamniotic, second trimester; Z3A.26 26 weeks gestation of pregnancy; Z37.3 Twins, one liveborn and one stillborn
CPT/HCPCS: 36415; 76815; 76816; 76819; 80053; 81001; 83735; 85007; 85014; 85018; 85025; 85027; 86850; 86900; 86901; 86920; 88307; G0378; J0290; J0360; J0595; J0690; J0702; J1100; J1885; J2405; J2590; J2704; J2710; J2765; J3010; J3105; J3475; J3490; J7120; J7121; P9016

== ENCOUNTER 2019-02-22 12:33 | Emergency (ER) | payer MEDICAID ==
--- NOTE | 2019-02-22 12:41 | Event Note ---
ED Screening Note Date of service: 02/22/19 Time: 12:40 ED Screening Note: pt complains of c section wound dehiscence x last night +fever states purulent drainage from wound This initial assessment/diagnostic orders/clinical plan/treatment(s) is/are subject to change based on patients health status, clinical progression and re- assessment by fellow clinical providers in the ED. Further treatment and workup at subsequent clinical providers discretion. Patient/guardian urged not to elope from the ED as their condition may be serious if not clinically assessed and managed. Initial orders include: labs
[2019-02-22 13:57] LABS: Basophils % (Auto) 0.5 % (0.0-1.8); Eosinophils % (Auto) 0.3 % (0.0-4.3); Hematocrit 35.7 % (30.3-42.9); Hemoglobin 11.4 gm/dl (10.1-14.3); Lymphocytes # (Auto) 0.9 K/mm3 (1.2-5.4); Lymphocytes % (Auto) 16.7 % (13.4-35.0); Mean Corpuscular HGB Conc 32 % (30-34); Mean Corpuscular Volume 82 fl (79-97); Monocytes # (Auto) 0.6 K/mm3 (0.0-0.8); Monocytes % (Auto) 12.4 % (0.0-7.3); Platelet Count 442 K/mm3 (140-440); Red Blood Count 4.37 M/mm3 (3.65-5.03); Red Cell Distribution Width 16.7 % (13.2-15.2)
[2019-02-22 14:19] LABS: Alanine Aminotransferase 10 units/L (7-56); BUN/Creatinine Ratio 11; Blood Urea Nitrogen 9 mg/dL (7-17); Calcium 9.5 mg/dL (8.4-10.2); Hemolysis Index 30
[2019-02-22] MEDS ORDERED: SODIUM CHLORIDE 0.9% 1000 ML 2,000 ML IV ONE (14:52)
[2019-02-22] MEDS ORDERED: SODIUM CHLORIDE 0.9% 500 ML 500 ML IV ONE (14:52)
[2019-02-22] MEDS ORDERED: ONDANSETRON 4 MG/2 ML INJ IV ONE (14:52)
[2019-02-22] MEDS ORDERED: ACETAMINOPHEN 325 MG TAB PO ONE (14:52)
[2019-02-22] MEDS ORDERED: MORPHINE 4 MG/1 ML INJ IV ONE (14:55)
[2019-02-22] MEDS ORDERED: PIPERACIL/TAZOBACTA 4.5/NS 100 4.5 GM/100 ML VIAL IV ONE (15:03)
[2019-02-22] MEDS ORDERED: MORPHINE 2 MG/1 ML INJ ONE (15:23)
--- NOTE | 2019-02-22 16:24 | Emergency Department Report ---
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 Blair The patient is a 23-year-old female who is not known to this provider previously, admitted to this hospital last month 01 24 through 1216, found to have twin gestation, requiring , complicated by twin B upon de livery, probable placental abruption. During the history and physical, I am chaperoned by nurse Carmella Cain The patient presents to the ER with a complaint of lower abdominal pain, puslike discharge, fever. The abdominal pain is crampy and does not radiate anywhere. It increases with palpation and decreases with rest. She is not sure what her temperature max is at home. The patient denies headache, neck pain, chest pain, urinary symptoms. The patient has no vomiting. She denies extremity weakness and/or numbness. -: Gradual, hour(s), days(s) Location: abdomen Radiation: non-radiation Severity scale (0 -10): 8 Quality: aching Consistency: other Improves with: other Worsens with: other Associated Symptoms: other - Related Data Home Medications Medication Instructions Recorded Confirmed Last Taken Vit-Fe Fumar-FA [ 1 tab PO Q24H 12/20/18 01/23/19 01/22/19 Vitamin] Progesterone, Micronized 200 mg PO QPM 01/26/19 01/26/19 01/22/19 18:00 [Progesterone] Previous Rx's Medication Instructions Recorded Last Taken Type Methylergonovine [Methergine] 0.2 mg PO Q8HR #3 tablet 02/22/19 Unknown Rx Ondansetron [Zofran Odt] 4 mg PO Q8HR PRN #15 tab.rapdis 02/22/19 Unknown Rx metroNIDAZOLE [Flagyl] 500 mg PO Q8HR #15 tablet 02/22/19 Unknown Rx oxyCODONE /ACETAMINOPHEN [Percocet 1 tab PO Q6HR PRN #10 tablet 02/22/19 Unknown Rx 5/325] Allergies Allergy/AdvReac Type Severity Reaction Status Date / Time No Known Allergies Allergy Verified 12/20/18 21:51 ED Review of Systems ROS: Stated complaint: FEVER,ABD PAIN, WOUND RE-OPEN Other details as noted in HPI Constitutional: fever Eyes: denies: eye discharge ENT: denies: congestion Cardiovascular: denies: syncope Gastrointestinal: abdominal pain Genitourinary: denies: dysuria Musculoskeletal: denies: back pain Skin: rash, lesions Neurological: denies: weakness Hematological/Lymphatic: denies: easy bleeding ED Past Medical Hx - Past Medical History Hx Hypertension: No Hx Heart Attack/AMI: No Hx Congestive Heart Failure: No Hx Diabetes: No Hx Deep Vein Thrombosis: No Hx Liver Disease: No Hx Renal Disease: No Hx Sickle Cell Disease: No Hx Seizures: No Hx Asthma: No Hx COPD: No Hx HIV: No Additional medical history: Vaginal delivery - Surgical History Hx Pacemaker: No Hx Internal Defibrillator: No Additional Surgical History: . - Social History Smoking Status: Never Smoker Substance Use Type: None - Medications Home Medications: Home Medications Medication Instructions Recorded Confirmed Last Taken Type Vit-Fe Fumar-FA [ 1 tab PO Q24H 12/20/18 01/23/19 01/22/19 History Vitamin] Progesterone, Micronized 200 mg PO QPM 01/26/19 01/26/19 01/22/19 18:00 History [Progesterone] Methylergonovine [Methergine] 0.2 mg PO Q8HR #3 tablet 02/22/19 Unknown Rx Ondansetron [Zofran Odt] 4 mg PO Q8HR PRN #15 tab.rapdis 02/22/19 Unknown Rx metroNIDAZOLE [Flagyl] 500 mg PO Q8HR #15 tablet 02/22/19 Unknown Rx oxyCODONE /ACETAMINOPHEN [Percocet 1 tab PO Q6HR PRN #10 tablet 02/22/19 Unknown Rx 5/325] ED Physical Exam - General Limitations: No Limitations General appearance: alert, in no apparent distress - Head Head exam: Present: atraumatic, normocephalic - Eye Eye exam: Present: normal appearance, EOMI. Absent: nystagmus - ENT ENT exam: Present: normal exam, normal orophraynx, mucous membranes moist, normal external ear exam - Neck Neck exam: Present: normal inspection, full ROM. Absent: tenderness, meningismus - Respiratory Respiratory exam: Present: normal lung sounds bilaterally. Absent: respiratory distress - Cardiovascular Cardiovascular Exam: Present: normal rhythm, tachycardia, normal heart sounds. Absent: systolic murmur, diastolic murmur, rubs, gallop - GI/Abdominal GI/Abdominal exam: Present: soft, tenderness (there is minimal lower abdominal tenderness, without rebound, guarding or peritoneal sign.). Absent: distended, guarding, rebound, rigid, pulsatile mass - Extremities Exam Extremities exam: Present: normal inspection, full ROM, other (2+ pulses noted in the bilateral upper and lower extremities. The pelvis is stable. There is no long bony tenderness. The muscular compartments are soft. There is no redness, pus, streaking or erythema.). Absent: pedal edema, joint swelling, calf tenderness - Back Exam Back exam: Present: normal inspection. Absent: tenderness, CVA tenderness (R), CVA tenderness (L), paraspinal tenderness, vertebral tenderness - Neurological Exam Neurological exam: Present: alert, other (there is no facial droop. The tongue is midline. Extraocular movements are intact bilaterally. Speaking in full sentences. Hearing is grossly intact. 5 out of 5 strength bilateral upper and lower extremities. Sensation is intact to light touch bilateral upper and lower extremities.). Absent: motor sensory deficit - Psychiatric Psychiatric exam: Present: normal affect, normal mood - Skin Skin exam: Present: warm, other (at the suprapubic region, there is minimal purulent discharge noted from the surgical site, with minimal wound dehiscence.) ED Course Vital Signs 02/22/19 02/22/19 12:39 15:06 Temperature 100.6 F H 99.5 F Pulse Rate 106 H 92 H Respiratory 20 20 Rate Blood Pressure 108/75 Blood Pressure 108/70 [Left] O2 Sat by Pulse 98 97 Oximetry - Reevaluation(s) Reevaluation #1: 02/22/19 16:22 Differential diagnosis, including but not limited to: Postsurgical wound, retained products of conception, urinary tract infection Assessment and plan: 23-year-old female with fever, tachycardia, minimal lower abdominal purulent discharge, suspicious for postoperative infection. Her tachycardia has resolved and her fever has resolved. She appears quite comfortable. Informed verbal consent is obtained for CT scan with IV contrast. IV fluids and antibiotics ordered. Pain medication ordered. Discussed with her cork tile floor layer, Dr. Blair, who is agreeable to this plan of care, and requests a call back once initial diagnostics have resulted. Reevaluation #2: 02/22/19 18:21 CT scan is reviewed and appreciated. Patient reassessed multiple times while here in the department. She is tolerating liquid feeds, and tachycardia has resolved. I have reviewed her operative note from her 02/02/2019. Both placentas were completely evacuated. Therefore, this is very unlikely to be retained products of conception. Dr. Blair also reiterates this opinion. The patient has not endorsed any urinary symptoms. Renal anatomy is likely secondary to post-gravid uterus. The patient is appropriate for trial of oral outpatient therapy. Dr. Blair advises Methergine, 0.2 every 8 hours 3 doses, and metronidazole. Extensive discussion have outpatient. She indicates she would like to be discharged. Nursing team to apply dressing to wound, Dr. Blair agrees to follow up patient on Sunday or Sunday, which is in 2 or 3 days. ED Medical Decision Making - Lab Data Result diagrams: 02/22/19 13:15 02/22/19 13:15 Vital Signs 02/22/19 02/22/19 12:39 15:06 Temperature 100.6 F H 99.5 F Pulse Rate 106 H 92 H Respiratory 20 20 Rate Blood Pressure 108/75 Blood Pressure 108/70 [Left] O2 Sat by Pulse 98 97 Oximetry Lab Results 02/22/19 02/22/19 02/22/19 Range/Units 13:15 13:15 13:15 WBC 5.2 (4.5-11.0) K/mm3 RBC 4.37 (3.65-5.03) M/mm3 Hgb 11.4 (10.1-14.3) gm/dl Hct 35.7 (30.3-42.9) % MCV 82 (79-97) fl MCH 26 L (28-32) pg MCHC 32 (30-34) % RDW 16.7 H (13.2-15.2) % Plt Count 442 H (140-440) K/mm3 Lymph % (Auto) 16.7 (13.4-35.0) % Branch % (Auto) 12.4 H (0.0-7.3) % Eos % (Auto) 0.3 (0.0-4.3) % Baso % (Auto) 0.5 (0.0-1.8) % Lymph # 0.9 L (1.2-5.4) K/mm3 Branch # 0.6 (0.0-0.8) K/mm3 Eos # 0.0 (0.0-0.4) K/mm3 Baso # 0.0 (0.0-0.1) K/mm3 Seg Neutrophils % 70.1 H (40.0-70.0) % Seg Neutrophils # 3.6 (1.8-7.7) K/mm3 Sodium 137 (137-145) mmol/L Potassium 4.7 (3.6-5.0) mmol/L Chloride 99.5 (98-107) mmol/L Carbon Dioxide 24 (22-30) mmol/L Anion Gap 18 mmol/L BUN 9 (7-17) mg/dL Creatinine 0.8 (0.7-1.2) mg/dL Estimated GFR > 60 ml/min BUN/Creatinine Ratio 11 % Glucose 83 (65-100) mg/dL Lactic Acid 0.50 L (0.7-2.0) mmol/L Calcium 9.5 (8.4-10.2) mg/dL Magnesium (1.7-2.3) mg/dL Total Bilirubin 0.30 (0.1-1.2) mg/dL AST 18 (5-40) units/L ALT 10 (7-56) units/L Alkaline Phosphatase 59 (35-129) units/L Total Creatine Kinase (30-135) units/L Total Protein 7.6 (6.3-8.2) g/dL Albumin 4.0 (3.9-5) g/dL Albumin/Globulin Ratio 1.1 % 02/22/19 Range/Units 15:25 WBC (4.5-11.0) K/mm3 RBC (3.65-5.03) M/mm3 Hgb (10.1-14.3) gm/dl Hct (30.3-42.9) % MCV (79-97) fl MCH (28-32) pg MCHC (30-34) % RDW (13.2-15.2) % Plt Count (140-440) K/mm3 Lymph % (Auto) (13.4-35.0) % Branch % (Auto) (0.0-7.3) % Eos % (Auto) (0.0-4.3) % Baso % (Auto) (0.0-1.8) % Lymph # (1.2-5.4) K/mm3 Branch # (0.0-0.8) K/mm3 Eos # (0.0-0.4) K/mm3 Baso # (0.0-0.1) K/mm3 Seg Neutrophils % (40.0-70.0) % Seg Neutrophils # (1.8-7.7) K/mm3 Sodium (137-145) mmol/L Potassium (3.6-5.0) mmol/L Chloride (98-107) mmol/L Carbon Dioxide (22-30) mmol/L Anion Gap mmol/L BUN (7-17) mg/dL Creatinine (0.7-1.2) mg/dL Estimated GFR ml/min BUN/Creatinine Ratio % Glucose (65-100) mg/dL Lactic Acid (0.7-2.0) mmol/L Calcium (8.4-10.2) mg/dL Magnesium 2.00 (1.7-2.3) mg/dL Total Bilirubin (0.1-1.2) mg/dL AST (5-40) units/L ALT (7-56) units/L Alkaline Phosphatase (35-129) units/L Total Creatine Kinase 121 (30-135) units/L Total Protein (6.3-8.2) g/dL Albumin (3.9-5) g/dL Albumin/Globulin Ratio % - Radiology Data Radiology results: report reviewed, image reviewed Print Report Referring Physician: SAMINA MIGUEL Patient Name: CARLITA HINDS Date of : 1995 Sex: Female Report Date: 2019-02-22 Report Status: Finalized Findings [facility] [address] [place] [address] Cat Scan Report Signed Patient: CARLITA HINDS MR#: [id number] : 1995 Acct:[id number] Age/Sex: 23 / F ADM Date: 02/22/19 Loc: ED Attending Dr: Ordering Physician: SAMINA MIGUEL MD Date of Service: 02/22/19 Procedure(s): CT abdomen pelvis w con Accession Number(s): [id number] cc: SAMINA MIGUEL MD CT abdomen pelvis w con INDICATION: abd pain pus fever s/p c section. TECHNIQUE: All CT scans at this location are performed using the following dose modulation technique: Automated exposure control. CONTRAST: Omnipaque 300, 100 cc IV injection COMPARISON: None available. CT ABDOMEN: The parenchymal organs are unremarkable in appearance other than mild residual fullness of the renal collecting systems and ureters. Negative for abdominal mass, fluid or inflammation. The bowel is not dilated or thickened. Small basilar effusions are symmetric. CT PELVIS: Large uterus with residual debris within the endometrial cavity. No pelvic fluid collection or intrauterine air. 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 A focal fat- containing umbilical hernia is present. Moderate bladder distention. IMPRESSION: 1. Negative for abscess. 2. uterus with internal debris, but no air 3. Small effusions. 4. Diastases of the rectus muscles with eventration of the anterior abdominal wall and focal fat- containing umbilical hernia. 5. Moderate bladder distention with mild distention of the ureters and upper collecting systems. Signer Name: Pepe Arthur MD Signed: 02/22/2019 5:10 PM Workstation Name: [id number] Transcribed By: ES Dictated By: Pepe Arthur MD Electronically Authenticated By: Pepe Arthur MD Signed Date/Time: 02/22/19 4311 Critical care attestation.: If time is entered above; I have spent that time in minutes in the direct care of this critically ill patient, excluding procedure time. ED Disposition Clinical Impression: Acute febrile illness, History of Disposition: DC-01 TO HOME OR SELFCARE Is pt being admited?: No Does the pt Need Aspirin: No Condition: Stable Additional Instructions: Rest, avoid heavy lifting, and avoid strenuous physical activities. Take the Percocet medication as needed for pain, when taking this medication, do not drive, consume alcohol, or make important decisions. Take antibiotics as directed, and Methergine as directed. Do not breast-feed until antibiotics are completed, and patient has allowed for 24 hours after last antibiotic dose to reinitiate breast-feeding. Do not take metformin medication for the next 2 days, if patient takes this medication. Follow-up with Dr. Blair within the next 2-3 days for repeat checkup and or evaluation. Cultures were sent today, and results will be available in the next 3-5 days. Please have your primary care doctor or cork tile floor layer contact the medical records department to obtain culture results. Rest, avoid heavy lifting, avoid strenuous physical activity, and avoid sex until cleared to do so by her private cork tile floor layer. When taking Methergine, patient may expect bleeding and/or cramps. This is a typical and normal side effect. Return to the emergency room right away with projectile vomiting, change in mental status, confusion, inability to tolerate liquid feeds, new, worsening or different symptoms not present on the initial ER evaluation. Patient may develop fever, and if she does, she may take Tylenol, 650 mg by mouth, every 4-6 hours. Maximum daily dose of Tylenol is 4 g per 24 hours. Please note that in Percocet tablets, each tablet contains 325 mg of Tylenol. Referrals: YEYO BLAIR MD [Staff Physician] - 3-5 Days
--- NOTE | 2019-02-22 17:15 | Cat Scan Report ---
CT abdomen pelvis w con INDICATION: abd pain pus fever s/p c section. TECHNIQUE: All CT scans at this location are performed using the following dose modulation technique: Automated exposure control. CONTRAST: Omnipaque 300, 100 cc IV injection COMPARISON: None available. CT ABDOMEN: The parenchymal organs are unremarkable in appearance other than mild residual fullness o f the renal collecting systems and ureters. Negative for abdominal mass, fluid or inflammation. The b owel is not dilated or thickened. Small basilar effusions are symmetric. CT PELVIS: Large uterus with residual debris within the endometrial cavity. No pelvic flui d collection or intrauterine air. 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 A focal fat-containi ng umbilical hernia is present. Moderate bladder distention. IMPRESSION: 1. Negative for abscess. 2. uterus with internal debris, but no air 3. Small effusions. 4. Diastases of the rectus muscles with eventration of the anterior abdominal wall and focal fat-cont aining umbilical hernia. 5. Moderate bladder distention with mild distention of the ureters and upper collecting systems. Signer Name: Pepe Arthur MD Signed: 02/22/2019 5:10 PM Workstation Name: [id number]
[2019-02-22] MEDS ORDERED: SODIUM CHLORIDE 0.9% 1000 ML 1,000 ML ONE (17:24)
[2019-02-22 18:58] LABS: Bilirubin,Urine NEG (Negative); Blood,Urine MOD (Negative); Color,Urine Colorless (Yellow); Protein,Urine <15 mg/dL mg/dL (Negative); Urobilinogen,Urine < 2.0 mg/dL (<2.0)
[2019-02-22 19:11] VITALS: BP 110/70
== END 2019-02-22 19:13 | disposition home or self-care (01) ==
LOC: ED 12:33
DX: R50.9 Fever, unspecified (principal); Z98.891 History of uterine scar from previous surgery; Z79.899 Other long term (current) drug therapy
CPT/HCPCS: 36415; 74177; 80053; 81001; 82140; 82550; 83735; 85025; 87040; 87086; 96365; 96375; 99284; J2270; J2405; J2543; J7030; J7040; Q9967